=== PATIENT | male | born 1980 | race Caucasian/White ===

== ENCOUNTER 2020-07-16 09:05 | Outpatient (REF) | payer MEDICARE, MEDICAID, SELFPAY ==
[2020-07-16 11:59] LABS: Estimated Average Glucose 183 mg/dL
[2020-07-16 12:04] LABS: Alanine Aminotransferase 26 U/L (0-40); Albumin Level 4.9 g/dL (3.5-5.0); Alkaline Phosphatase 71 U/L (39-117); Anion Gap 14 (12-20); Aspartate Amino Transferase 25 U/L (5-37); Bilirubin Total 0.6 mg/dL (0.0-1.0); Blood Urea Nitrogen 12 mg/dL (9-16); Calcium 9.5 mg/dL (8.4-10.2); Carbon Dioxide 29 mmol/L (22-29); Chloride 99 mmol/L (96-108); Cholesterol 137 mg/dL; Estimated Glomerular Filt Rate > 60; Glucose Fasting 178 mg/dL (60-99); HDL Cholesterol 52 mg/dL; LDL Cholesterol Calculated 71 mg/dl; Sodium 137 mmol/L (135-145); Total Protein 7.7 g/dL (6.5-8.0); Triglycerides 73 mg/dL
[2020-07-16 12:47] LABS: Creatinine Urine 77.38 mg/dL; Microalbum/Creatinine Ratio Ur 33.6 ug/mg cr
== END 2020-07-16 09:06 | disposition home or self-care (01) ==
LOC: HO.HMGCLDS 09:05
PROVIDERS: PCP Internal Medicine; Visit Provider Internal Medicine
DX: E11.9 Type 2 diabetes mellitus without complications (principal); E78.5 Hyperlipidemia, unspecified; Z79.4 Long term (current) use of insulin
CPT/HCPCS: 36415; 80053; 80061; 82043; 83036

== ENCOUNTER → 2020-08-13 08:22 | Outpatient (BNVA) | payer MEDICARE, MEDICAID, SELFPAY | PROVIDERS: PCP Internal Medicine; Referring Provider Internal Medicine; Visit Provider Internal Medicine | DX: E10.65 Type 1 diabetes mellitus with hyperglycemia (principal); E78.5 Hyperlipidemia, unspecified; I10 Essential (primary) hypertension; Z90.410 Acquired total absence of pancreas | CPT/HCPCS: 99212 ==

== ENCOUNTER → 2020-11-14 07:34 | Outpatient (BNVA) | payer MEDICARE, MEDICAID, SELFPAY | PROVIDERS: PCP Internal Medicine; Visit Provider Internal Medicine | DX: E10.65 Type 1 diabetes mellitus with hyperglycemia (principal); E78.5 Hyperlipidemia, unspecified; I10 Essential (primary) hypertension | CPT/HCPCS: 82947; 99212 ==

== ENCOUNTER 2020-11-14 08:21 | Outpatient (REF) | payer MEDICARE, MEDICAID, SELFPAY ==
[2020-11-14 11:01] LABS: Alanine Aminotransferase 21 U/L (0-40); Albumin Level 4.8 g/dL (3.5-5.0); Alkaline Phosphatase 71 U/L (39-117); Anion Gap 14 (12-20); Aspartate Amino Transferase 26 U/L (5-37); Bilirubin Total 0.5 mg/dL (0.0-1.0); Blood Urea Nitrogen 9 mg/dL (9-16); Carbon Dioxide 28 mmol/L (22-29); Chloride 99 mmol/L (96-108); Cholesterol 151 mg/dL; Estimated Glomerular Filt Rate > 60; Glucose Random 194 mg/dL (60-115); HDL Cholesterol 59 mg/dL; LDL Cholesterol Calculated 71 mg/dl; Sodium 136 mmol/L (135-145); Total Protein 7.5 g/dL (6.5-8.0); Triglycerides 108 mg/dL
[2020-11-15 05:17] LABS: LDL Cholesterol Direct 74 mg/dL (<100)
== END 2020-11-14 08:22 | disposition home or self-care (01) ==
LOC: HO.10HDL 08:21
PROVIDERS: Visit Provider Internal Medicine
DX: E10.65 Type 1 diabetes mellitus with hyperglycemia (principal); E10.9 Type 1 diabetes mellitus without complications
CPT/HCPCS: 36415; 80053; 80061; 83721

== ENCOUNTER → 2020-12-19 07:30 | Outpatient (BNVA) | payer MEDICARE, MEDICAID, SELFPAY | PROVIDERS: PCP Internal Medicine; Visit Provider Internal Medicine | DX: E10.65 Type 1 diabetes mellitus with hyperglycemia (principal); E78.5 Hyperlipidemia, unspecified; I10 Essential (primary) hypertension; Z79.4 Long term (current) use of insulin; Z71.3 Dietary counseling and surveillance | CPT/HCPCS: 82947; 99212 ==

== ENCOUNTER → 2021-02-11 07:47 | Outpatient (BNVA) | payer MEDICARE, MEDICAID, SELFPAY | PROVIDERS: PCP Internal Medicine; Visit Provider Internal Medicine | CPT/HCPCS: Q3014 ==

== ENCOUNTER 2021-02-27 10:06 | Outpatient (REF) | payer MEDICARE, MEDICAID, SELFPAY ==
--- NOTE | ~2021-02-27 | CT_ITS ---
EXAMINATION: CT SINUS WITHOUT CONTRAST CLINICAL INFORMATION: Nasal polyp. COMPARISON: None available. TECHNIQUE: A multidetector CT acquisition of the sinuses is obtained without contrast. Multiplanar reformats are acquired and utilized for image interpretation. This CT examination was performed using dose optimization techniques as appropriate, variously including the following: *Automated exposure control *Adjustment of mA and/or kV according to patient size (this includes techniques or standardized protocols for targeted exams where dose is matched to indication/reason for exam; i.e. extremities or head) *Use of iterative reconstruction technique FINDINGS: Complete opacification of the right maxillary sinus which is atelectatic associated with depression of the right orbital floor and lateralization of the right uncinate process which closely opposes the inferomedial right bony orbit, imaging findings suggestive of silent sinus syndrome. The left maxillary sinus, the sphenoid sinuses, the ethmoid air cells, and the frontal sinuses are clear. The internal carotid arteries remain well covered with bone. The mastoid air cells and middle ear cavities are clear. The TMJs are unremarkable. There is no periapical lucency. There is rightward deviation of the nasal septum with a large rightward directed septal spur that extends between the right middle and inferior turbinates. CT/CT sinus wo con IMPRESSION: - Complete opacification of the right maxillary sinus which is atelectatic associated with depression of the right orbital floor and lateralization of the right uncinate process which closely opposes the inferomedial right bony orbit, imaging findings suggestive of silent sinus syndrome. - There is significant rightward deviation of the nasal septum with a large rightward directed septal spur that extends between the right middle and inferior turbinates.
== END 2021-02-27 10:07 | disposition home or self-care (01) ==
LOC: HO.CT 10:06
PROVIDERS: PCP Internal Medicine; Visit Provider Otolaryngology
DX: J33.9 Nasal polyp, unspecified (principal)
CPT/HCPCS: 70486

== ENCOUNTER → 2021-05-08 10:33 | Outpatient (BNVA) | payer MEDICARE, MEDICAID, SELFPAY | PROVIDERS: PCP Internal Medicine; Visit Provider Urology | DX: E11.69 Type 2 diabetes mellitus with other specified complication (principal); N52.1 Erectile dysfunction due to diseases classified elsewhere | CPT/HCPCS: 99212 ==

== ENCOUNTER 2021-05-20 07:34 | Outpatient (REF) | payer MEDICARE, MEDICAID, SELFPAY ==
[2021-05-20 11:11] LABS: Estimated Average Glucose 171 mg/dL; Hemoglobin A1c % 7.6 %
[2021-05-20 11:20] LABS: Alanine Aminotransferase 19 U/L (0-40); Albumin Level 4.7 g/dL (3.5-5.0); Alkaline Phosphatase 73 U/L (39-117); Anion Gap 13 (12-20); Aspartate Amino Transferase 20 U/L (5-37); Bilirubin Total 0.4 mg/dL (0.0-1.0); Blood Urea Nitrogen 8 mg/dL (9-16); Calcium 9.1 mg/dL (8.4-10.2); Carbon Dioxide 29 mmol/L (22-29); Chloride 100 mmol/L (96-108); Cholesterol 142 mg/dL; Estimated Glomerular Filt Rate > 60; Glucose Random 167 mg/dL (60-115); HDL Cholesterol 47 mg/dL; LDL Cholesterol Calculated 81 mg/dl; Potassium 4.5 mmol/L (3.3-5.1); Sodium 137 mmol/L (135-145); Total Protein 7.4 g/dL (6.5-8.0); Triglycerides 73 mg/dL
[2021-05-20 11:36] LABS: Creatinine Urine 39.76 mg/dL; Microalbum/Creatinine Ratio Ur 27.6 ug/mg cr
[2021-05-20 11:40] LABS: Vitamin D 25-OH Total 41.4 ng/mL (>30)
[2021-05-21 18:27] LABS: LDL Cholesterol Direct 80 mg/dL (<100)
== END 2021-05-20 07:35 | disposition home or self-care (01) ==
LOC: HO.10HDL 07:34
PROVIDERS: PCP Internal Medicine; Visit Provider Internal Medicine
DX: E10.65 Type 1 diabetes mellitus with hyperglycemia (principal); E78.5 Hyperlipidemia, unspecified; I10 Essential (primary) hypertension; E55.9 Vitamin D deficiency, unspecified; Z71.3 Dietary counseling and surveillance
CPT/HCPCS: 36415; 80053; 80061; 82043; 82306; 82947; 83036; 83721; 99212

== ENCOUNTER → 2021-11-04 09:00 | Outpatient (BNVA) | payer MEDICARE, MEDICAID, SELFPAY | PROVIDERS: PCP Internal Medicine; Visit Provider Internal Medicine | DX: E10.65 Type 1 diabetes mellitus with hyperglycemia (principal); E78.5 Hyperlipidemia, unspecified; I10 Essential (primary) hypertension | CPT/HCPCS: 82947; 83036; 99212 ==

== ENCOUNTER → 2021-11-21 08:07 | Outpatient (BNVA) | payer MEDICARE, MEDICAID, SELFPAY | PROVIDERS: PCP Internal Medicine; Visit Provider Registered Nurse Diabetes Educator | DX: E10.65 Type 1 diabetes mellitus with hyperglycemia (principal); Z79.4 Long term (current) use of insulin | CPT/HCPCS: 99211 ==

== ENCOUNTER → 2021-12-05 08:06 | Outpatient (BNVA) | payer MEDICARE, MEDICAID, SELFPAY | PROVIDERS: PCP Internal Medicine; Visit Provider Registered Nurse Diabetes Educator | DX: E10.65 Type 1 diabetes mellitus with hyperglycemia (principal); Z79.4 Long term (current) use of insulin | CPT/HCPCS: 99211 ==

== ENCOUNTER → 2022-01-02 08:00 | Outpatient (BNVA) | payer MEDICARE, MEDICAID, SELFPAY | PROVIDERS: PCP Internal Medicine; Visit Provider Registered Nurse Diabetes Educator | DX: E10.65 Type 1 diabetes mellitus with hyperglycemia (principal); Z79.4 Long term (current) use of insulin; Z46.81 Encounter for fitting and adjustment of insulin pump | CPT/HCPCS: 99211 ==

== ENCOUNTER 2022-02-04 08:03 | Outpatient (REF) | payer MEDICARE, MEDICAID, SELFPAY ==
[2022-02-04 12:12] LABS: Estimated Average Glucose 171 mg/dL; Hemoglobin A1c % 7.6 %
[2022-02-04 12:24] LABS: Vitamin D 25-OH Total 32.4 ng/mL (>30)
[2022-02-04 12:27] LABS: Creatinine Urine 56.62 mg/dL
[2022-02-04 12:32] LABS: Alanine Aminotransferase 37 U/L (0-40); Albumin Level 4.7 g/dL (3.5-5.0); Alkaline Phosphatase 58 U/L (39-117); Anion Gap 13 (12-20); Aspartate Amino Transferase 78 U/L (5-37); Bilirubin Total 0.7 mg/dL (0.0-1.0); Blood Urea Nitrogen 9 mg/dL (9-16); Carbon Dioxide 28 mmol/L (22-29); Chloride 93 mmol/L (96-108); Cholesterol 167 mg/dL; Estimated Glomerular Filt Rate > 60; Glucose Random 253 mg/dL (60-115); HDL Cholesterol 73 mg/dL; LDL Cholesterol Calculated 76 mg/dl; Potassium 5.2 mmol/L (3.3-5.1); Sodium 129 mmol/L (135-145); Total Protein 7.5 g/dL (6.5-8.0); Triglycerides 94 mg/dL
[2022-02-06 05:36] LABS: LDL Cholesterol Direct 74 mg/dL (<100)
== END 2022-02-04 08:04 | disposition home or self-care (01) ==
LOC: HO.HMGCLDS 08:03
PROVIDERS: PCP Internal Medicine; Visit Provider Internal Medicine
DX: E10.65 Type 1 diabetes mellitus with hyperglycemia (principal); E55.9 Vitamin D deficiency, unspecified
CPT/HCPCS: 36415; 80053; 80061; 82306; 83036; 83721

== ENCOUNTER → 2022-02-05 08:01 | Outpatient (BNVA) | payer MEDICARE, MEDICAID, SELFPAY | PROVIDERS: PCP Internal Medicine; Visit Provider Internal Medicine | DX: E10.65 Type 1 diabetes mellitus with hyperglycemia (principal); E78.5 Hyperlipidemia, unspecified; I10 Essential (primary) hypertension | CPT/HCPCS: Q3014 ==

== ENCOUNTER 2022-02-05 11:25 | Outpatient (REF) | payer MEDICARE, MEDICAID, SELFPAY ==
[2022-02-05 14:09] LABS: Alanine Aminotransferase 44 U/L (0-40); Albumin Level 4.7 g/dL (3.5-5.0); Alkaline Phosphatase 57 U/L (39-117); Anion Gap 13 (12-20); Aspartate Amino Transferase 69 U/L (5-37); Bilirubin Total 0.6 mg/dL (0.0-1.0); Blood Urea Nitrogen 10 mg/dL (9-16); Calcium 10.3 mg/dL (8.4-10.2); Carbon Dioxide 29 mmol/L (22-29); Chloride 96 mmol/L (96-108); Estimated Glomerular Filt Rate > 60; Glucose Random 218 mg/dL (60-115); Potassium 4.8 mmol/L (3.3-5.1); Sodium 133 mmol/L (135-145); Total Protein 7.5 g/dL (6.5-8.0)
== END 2022-02-05 11:26 | disposition home or self-care (01) ==
LOC: HO.HMGCLDS 11:25
PROVIDERS: Visit Provider Internal Medicine
DX: E10.65 Type 1 diabetes mellitus with hyperglycemia (principal)
CPT/HCPCS: 36415; 80053

== ENCOUNTER 2022-05-06 08:06 | Outpatient (REF) | payer MEDICARE, MEDICAID, SELFPAY ==
[2022-05-06 11:03] LABS: Alanine Aminotransferase 20 U/L (0-40); Albumin Level 5.1 g/dL (3.5-5.0); Alkaline Phosphatase 91 U/L (39-117); Anion Gap 15 (12-20); Aspartate Amino Transferase 23 U/L (5-37); Bilirubin Total 0.6 mg/dL (0.0-1.0); Blood Urea Nitrogen 9 mg/dL (9-16); Calcium 9.9 mg/dL (8.4-10.2); Carbon Dioxide 28 mmol/L (22-29); Chloride 94 mmol/L (96-108); Cholesterol 146 mg/dL; Estimated Glomerular Filt Rate > 60; Glucose Random 179 mg/dL (60-115); HDL Cholesterol 59 mg/dL; LDL Cholesterol Calculated 67 mg/dl; Potassium 5.5 mmol/L (3.3-5.1); Sodium 131 mmol/L (135-145); Total Protein 8.1 g/dL (6.5-8.0); Triglycerides 100 mg/dL
[2022-05-06 11:24] LABS: Vitamin D 25-OH Total 41.4 ng/mL (>30)
[2022-05-06 11:40] LABS: Creatinine Urine 30.99 mg/dL
[2022-05-06 11:47] LABS: Estimated Average Glucose 163 mg/dL; Hemoglobin A1c % 7.3 %
[2022-05-08 00:11] LABS: LDL Cholesterol Direct 70 mg/dL (<100)
== END 2022-05-06 08:07 | disposition home or self-care (01) ==
LOC: HO.10HDL 08:06
PROVIDERS: Visit Provider Internal Medicine
DX: E10.65 Type 1 diabetes mellitus with hyperglycemia (principal); E55.9 Vitamin D deficiency, unspecified
CPT/HCPCS: 36415; 80053; 80061; 82043; 82306; 83036; 83721

== ENCOUNTER 2022-05-07 08:04 | Outpatient (REF) | payer MEDICARE, MEDICAID, SELFPAY ==
[2022-05-07 10:24] LABS: Alanine Aminotransferase 19 U/L (0-40); Alkaline Phosphatase 90 U/L (39-117); Anion Gap 13 (12-20); Aspartate Amino Transferase 20 U/L (5-37); Bilirubin Total 0.5 mg/dL (0.0-1.0); Blood Urea Nitrogen 8 mg/dL (9-16); Calcium 9.4 mg/dL (8.4-10.2); Carbon Dioxide 27 mmol/L (22-29); Chloride 96 mmol/L (96-108); Estimated Glomerular Filt Rate > 60; Glucose Random 217 mg/dL (60-115); Potassium 5.4 mmol/L (3.3-5.1); Sodium 131 mmol/L (135-145); Total Protein 7.7 g/dL (6.5-8.0)
[2022-05-07 10:34] LABS: Cortisol Random 11.9 ug/dL
[2022-05-10 16:26] LABS: Adrenocorticotropic Hormone 8 pg/mL (6-50)
== END 2022-05-07 08:05 | disposition home or self-care (01) ==
LOC: CF 08:04
PROVIDERS: PCP Internal Medicine; Visit Provider Internal Medicine
DX: E10.65 Type 1 diabetes mellitus with hyperglycemia (principal); E78.5 Hyperlipidemia, unspecified; I10 Essential (primary) hypertension
CPT/HCPCS: 36415; 80053; 82024; 82533; 82947; 99212

== ENCOUNTER → 2022-05-08 08:58 | Outpatient (BNVA) | payer MEDICARE, MEDICAID, SELFPAY | PROVIDERS: PCP Internal Medicine; Visit Provider Urology | DX: E11.69 Type 2 diabetes mellitus with other specified complication (principal); N52.1 Erectile dysfunction due to diseases classified elsewhere | CPT/HCPCS: Q3014 ==

== ENCOUNTER 2022-05-14 12:46 | Outpatient (REF) | payer MEDICARE, MEDICAID, SELFPAY ==
[2022-05-14 14:04] LABS: Anion Gap 15 (12-20); Carbon Dioxide 28 mmol/L (22-29); Chloride 99 mmol/L (96-108); Potassium 3.8 mmol/L (3.3-5.1); Sodium 138 mmol/L (135-145)
== END 2022-05-14 12:47 | disposition home or self-care (01) ==
LOC: HO.HMGCLDS 12:46
PROVIDERS: PCP Internal Medicine; Visit Provider Internal Medicine
DX: E87.5 Hyperkalemia (principal)
CPT/HCPCS: 36415; 80051

== ENCOUNTER → 2022-10-27 08:12 | Outpatient (BNVA) | payer MEDICARE, MEDICAID, SELFPAY | PROVIDERS: PCP Internal Medicine; Visit Provider Internal Medicine | DX: E10.65 Type 1 diabetes mellitus with hyperglycemia (principal); I10 Essential (primary) hypertension; E78.5 Hyperlipidemia, unspecified; Z79.4 Long term (current) use of insulin | CPT/HCPCS: 82947; 83036; 99212 ==

== ENCOUNTER 2023-05-04 08:00 | Outpatient (AMB) | payer MEDICARE, MEDICAID, SELFPAY ==
--- NOTE | 2023-05-04 09:01 | A.OFFVIS_ITS ---
Intake Intake Visit Reasons: F/U T1DM Kieselguhr Regenerator Operator Required: No Accompanied by: Self / Same As Patient Allergies barley [Barley] Allergy (Severe, Verified 10/27/22 08:28) THROAT SWELLING fish oil [Fish Oil] Allergy (Mild, Verified 10/27/22 08:28) ITCHING fentanyl Allergy (Unknown, Verified 10/27/22 08:28) disorientation gabapentin Adverse Reaction (Unknown, Verified 10/27/22 08:) mood changes made him angry HPI Comprehensive Diabetes Asmnt Most Recent Diabetes Results: Microalb/Creat Ratio 58.0 ug/mg cr 05/06/22 Cholesterol 146 mg/dL 05/06/22 HDL Cholesterol 59 mg/dL 05/06/22 Triglycerides 100 mg/dL 05/06/22 Creatinine 0.91 mg/dL (0.5-1.4) 05/07/22 Blood Urea Nitrogen 8 mg/dL (9-16) L 05/07/22 Sodium 138 mmol/L (135-145) 05/14/22 Potassium 3.8 mmol/L (3.3-5.1) 05/14/22 Chloride 99 mmol/L (96-108) 05/14/22 Carbon Dioxide 28 mmol/L (22-29) 05/14/22 Calcium 9.4 mg/dL (8.4-10.2) 05/07/22 AST 20 U/L (5-37) 05/07/22 ALT 19 U/L (0-40) 05/07/22 Total Protein 7.7 g/dL (6.5-8.0) 05/07/22 Albumin 5.0 g/dL (3.5-5.0) 05/07/22 [facility] Medical History GERD (gastroesophageal reflux disease) HLD (hyperlipidemia) HTN (hypertension) Lipid disorder Necrotizing pancreatitis Pancreatitis T1DM (type 1 diabetes mellitus) Vitamin D deficiency Surgical History H/O Spinal surgery H/O vasectomy History of elbow surgery (09/2014) History of pancreatectomy History of surgery on left wrist Hx of umbilical hernia repair Family History Father Diabetes HTN (hypertension) Hyperlipemia Alcohol abuse Substance use disorder Mother Anxiety Depression Diabetes Mental health disorder Brother Kidney failure Mental health disorder Maternal Grandmother Stomach cancer Social History Household Members: Spouse and Children Housing: House Alcohol intake: never Patient Tobacco Use Status: Never used Tobacco e-Cigarette/Vaping Use: Never Used service: No Current occupational status: disabled Cognitive needs: No Hearing needs: No Vision needs: Yes Assessment & Plan Assessment & Plan (1) Erectile dysfunction associated with type 2 diabetes mellitus: Code(s): E11.69 - Type 2 diabetes mellitus with other specified complication; N52.1 - Erectile dysfunction due to diseases classified elsewhere Plan: Personal Continuous Glucose Monitor: Patient's last visit December 2021, at that visit we discussed insulin pump therapy. Patient did not follow-up until today's visit Patient reports in March 2023 his insurance no longer covered Humalog so he is now taking NovoLog. Patient reports he feels his control is much better when using Humalog. Stating that Humalog seems to control glucose faster than NovoLog Patient also requested prescription for glucagon, and new glucose meter. He has been using old OneTouch meter with strips Patients CGM information reviewed Reviewed patient's sensor data: Hypoglycemia: ? 0% Hyperglycemia:? 63% Time in Range:? 37% Average glucose for the last 2 weeks? 209 mg/dL Pump patient stated he still interested in insulin pump therapy, will discuss Omnipod [address] Duarte at next visit on 05/18/[address] Duarte regarding language that should be included in next visit appointment for PA for Humalog Patient reports that he adjusts his Lantus dose based on his physical activity for the next day. Discussed with patient action of Lantus, he is experiencing overnight hyperglycemia. Patient seems to think that this is related to the change in mealtime insulin, reports that he wants to try going back to Humalog before making any adjustment to Lantus Reviewed how to interpret trend arrows Reminded patient that to check finger sticks if symptoms do not match sensor reading. Discussed lag time between finger stick and sensor data.? Patient able to insert sensor independently at home without issue.? Patient Instructions: Patient will follow-up critical care educator in 1 month Coding Level of Care Code Est Pt Level 1 (09488) Diagnoses Erectile dysfunction associated with type 2 diabetes mellitus E11.69; N52.1
== END 2023-05-04 09:05 | disposition home or self-care (01) ==
PROVIDERS: PCP Internal Medicine; Referring Provider Internal Medicine; Visit Provider Registered Nurse Diabetes Educator
DX: E11.69 Type 2 diabetes mellitus with other specified complication (principal); N52.1 Erectile dysfunction due to diseases classified elsewhere

== ENCOUNTER → 2023-05-04 08:00 | Outpatient (BNVA) | payer MEDICARE, MEDICAID, SELFPAY | PROVIDERS: Visit Provider Registered Nurse Diabetes Educator | DX: E11.69 Type 2 diabetes mellitus with other specified complication (principal); N52.1 Erectile dysfunction due to diseases classified elsewhere | CPT/HCPCS: 99211 ==

== ENCOUNTER 2023-05-08 08:37 | Outpatient (AMB) | payer MEDICARE, MEDICAID, SELFPAY ==
--- NOTE | 2023-05-08 08:42 | MHC.OFFVIS ---
Intake Intake Visit Reasons: 1 year follow up erectile dysfunction Intake Note: Pt presents to the office today for a 1 year follow up for erectile dysfunction. Allergies barley [Barley] Allergy (Severe, Verified 05/08/23 08:43) THROAT SWELLING fish oil [Fish Oil] Allergy (Mild, Verified 05/08/23 08:43) ITCHING fentanyl Allergy (Unknown, Verified 05/08/23 08:43) disorientation gabapentin Adverse Reaction (Unknown, Verified 05/08/23 08:43) mood changes made him angry Medication List - Last Reconciled 05/08/23 by Kiet Soriano MD blood sugar diagnostic As directed blood sugar diagnostic (Higher Oneuch Verio test strips) 2x daily blood-glucose meter (Higher Oneuch Verio Flex Meter) As directed blood-glucose sensor (DexAmbient Devices G6 Sensor device) As directed blood-glucose transmitter (Dexcom G6 Transmitter device) As directed carisoprodol 350 mg PO dextroamphetamine-amphetamine 20 mg ER 1 cap PO DAILY gemfibrozil 600 mg PO BID 90 days glucagon (Glucagon Emergency Kit) 1 mg subcut Q20M PRN insulin glargine 32 units subcut DAILY lancets As directed lancets ([employer] Delica Plus Lancet) 2x daily lidocaine 5% 1 patch topical DAILY uckrwm-yicgjtji-screwgl 24,000-76,000 -120,000 unit (Creon) 1 cap PO QID multivitamin 1 tab PO DAILY Novolog FlexPen U-100 Insulin (insulin aspart U-100) Up to 30 units via sliding scale daily subcut 3 times a day subcutaneously daily; 30 days NS omeprazole 20 mg PO DAILY oxycodone [id number] mg PO Q4-6H PRN oxycodone ER 20 mg PO BID pen needle,diabetic dual safty (BD AutoShield Duo Pen Needle) 1 ea miscellaneous .six times daily 30 days pravastatin 10 mg PO .every other day 30 days sildenafil 100 mg (2 x 50 mg) PO DAILY PRN 30 days tadalafil 10 mg PO DAILY 90 days HPI HPI Comments History of Present Illness Details Mr Wick is a very pleasant male. He is a patient of Dr Tillman. He is seen for the following urologic conditions. - erectile dysfunction secondary to diabetes Stable with tadalafil Prescription provided Has had issues with sugar control since since insurance company changed insulin formulation Genitourinary symptoms:? 3/18 Presents with questions regarding scarring to his penis. Had been admitted to ICU and was in a coma for 6 weeks. At that time had blistering on his penis which has led to some degree of scarring. On examination this appears to have been superficial but involved the pigmented LAD. Is minimal scarring. There is evidence of the blistering that is now well-healed running down the left lateral side of the penis. The meatus is normal. He does also suffer from inguinal disruption particularly on the right side with pain at the insertion between his rectus and his symphysis pubis. This will resolve slowly over 3 months as his strength is builds back up again. This was all result of pancreatitis secondary to gallstones and familial triglyceridemia ?12/28 Fully healed skin on penis - describes areas of decreased sensitivity, glans sensitivity normal. Unlikely to recover superfiical skin sensitivity. ?Has right sided inguinal disruption with pain on palpation of the rectus insertion ?Intermittent trouble with erections - has been using L-Arginine for low nitrogren- offered sildenafil and rx provided ?01/29 switched to daily tadalafil. Has memory issues so planning with sildenafil has been a challenge. Had been using L arginine for low nitrogen. Discussed his diabetic control ?04/30 good effect with daily tadalafil. Will continue to follow [facility] Medical History GERD (gastroesophageal reflux disease) HLD (hyperlipidemia) HTN (hypertension) Lipid disorder Necrotizing pancreatitis Pancreatitis T1DM (type 1 diabetes mellitus) Vitamin D deficiency Surgical History H/O Spinal surgery H/O vasectomy History of elbow surgery (09/2014) History of pancreatectomy History of surgery on left wrist Hx of umbilical hernia repair Family History Father Diabetes HTN (hypertension) Hyperlipemia Alcohol abuse Substance use disorder Mother Anxiety Depression Diabetes Mental health disorder Brother Kidney failure Mental health disorder Maternal Grandmother Stomach cancer Social History Household Members: Spouse and Children Housing: House Alcohol intake: never Patient Tobacco Use Status: Never used Tobacco e-Cigarette/Vaping Use: Never Used service: No Current occupational status: disabled Cognitive needs: No Hearing needs: No Vision needs: Yes Review of Systems Const Denies chills and Denies fever(s) Card Reports no additional complaints and Denies syncope Resp Denies cough GI Denies abdominal pain and Denies heartburn Reports as per HPI and Denies change in libido Neuro Denies syncope Psych Denies change in libido Endo Denies change in libido Physical Exam Const General: cooperative, healthy appearing, comfortable and no acute distress Orientation/consciousness: patient oriented x3 HEENT Face and sinus: Yes normal facial exam Mouth: moist mucous membranes Neck Neck: Yes normal visual inspection, Yes full ROM and Yes trachea midline Chest Chest palpation & inspection: normal inspection of the chest Resp Effort & Inspection: normal respiratory effort, able to speak in complete sentences and no respiratory distress GI Inspection: Yes normal to inspection Back/Spine/Pelvis Cervical Spine: normal cervical lordosis Thoracic/Lumbar Spine: thoracic and lumbar spine normal to inspection Skin General skin exam: no rashes or lesions noted Neuro General: patient oriented x3, gait normal, tone normal and moves all extremities Extrem General: Yes normal to inspection and Yes capillary refill normal Assessment & Plan Assessment & Plan (1) Erectile dysfunction associated with type 2 diabetes mellitus: Code(s): E11.69 - Type 2 diabetes mellitus with other specified complication; N52.1 - Erectile dysfunction due to diseases classified elsewhere Plan Twelve month follow-up Medications: Changed From sildenafil administer 60 minutes before intended activity 100 mg (2 x 50 mg) PO DAILY 30 days PRN 30 tabs 1RF sexual activity E11.69 - Type 2 diabetes mellitus with other specified complication, N52.1 - Erectile dysfunction due to diseases classified elsewhere To sildenafil administer 60 minutes before intended activity 100 mg PO DAILY 30 days PRN 30 tabs 1RF sexual activity E11.69 - Type 2 diabetes mellitus with other specified complication, N52.1 - Erectile dysfunction due to diseases classified elsewhere Refilled tadalafil 10 mg PO DAILY 90 days 90 tabs 3RF E11.69 - Type 2 diabetes mellitus with other specified complication, N52.1 - Erectile dysfunction due to diseases classified elsewhere Patient Instructions: Imaging studies, laboratory and physical exam results were discussed and reviewed in detail. No major barriers to patient understanding were identified. An opportunity to ask questions regarding the treatment plan was provided. All questions were answered. The patient expressed understanding and agreement with the above treatment plan. The patient is aware they should contact our office by phone for worsening of their current condition or the appearance of new urologic symptoms. Compliance is encouraged with any medications and followup testing that is ordered. It is a privilege to participate in the urologic care of your patient. If you have any questions or concerns regarding treatment for the above conditions, or other urologic issues, please do not hesitate to contact me. The office telephone contact is [phone]. This note is constructed using voice recognition software. While every effort has been made to ensure accuracy storage wharfage clerk errors may have been included. Yours sincerely, Dr Kiet Soriano MD, [facility] - Urology Providers of Expert, Compassionate Care for the Genitourinary System Coding Level of Care Code Est Pt Level 4 (85220) Diagnoses Erectile dysfunction associated with type 2 diabetes mellitus E11.69; N52.1
== END 2023-05-08 08:59 | disposition home or self-care (01) ==
PROVIDERS: Visit Provider Urology
DX: E11.69 Type 2 diabetes mellitus with other specified complication (principal); N52.1 Erectile dysfunction due to diseases classified elsewhere
CPT/HCPCS: 99214

== ENCOUNTER → 2023-05-08 08:37 | Outpatient (BNVA) | payer MEDICARE, MEDICAID, SELFPAY | PROVIDERS: Visit Provider Urology | DX: E10.69 Type 1 diabetes mellitus with other specified complication (principal); N52.1 Erectile dysfunction due to diseases classified elsewhere; Z79.4 Long term (current) use of insulin | CPT/HCPCS: 99212 ==

== ENCOUNTER 2023-05-14 07:39 | Outpatient (REF) | payer MEDICARE, MEDICAID, SELFPAY ==
--- NOTE | ~2023-05-14 | XR_ITS ---
EXAMINATION: XR FINGER, RIGHT CLINICAL INFORMATION: Laceration without foreign body of finger. COMPARISON: None available. TECHNIQUE: 3 views of the right hand with attention to the middle finger. FINDINGS: The bones and soft tissues are normal. No fracture. Alignment is anatomic. Joint spaces are maintained. No radiopaque foreign body. XR/XR finger RT min 2V IMPRESSION: Normal finger radiographs.
[2023-05-14 11:57] LABS: Estimated Average Glucose 160 mg/dL; Hemoglobin A1c % 7.2 %
[2023-05-14 12:04] LABS: Alanine Aminotransferase 30 U/L (0-40); Albumin Level 4.6 g/dL (3.5-5.0); Alkaline Phosphatase 103 U/L (39-117); Anion Gap 16 (12-20); Aspartate Amino Transferase 31 U/L (5-37); Bilirubin Total 0.6 mg/dL (0.0-1.0); Blood Urea Nitrogen 12 mg/dL (9-16); Calcium 9.9 mg/dL (8.4-10.2); Carbon Dioxide 27 mmol/L (22-29); Chloride 101 mmol/L (96-108); Cholesterol 138 mg/dL; Estimated Glomerular Filt Rate > 60; Glucose Random 192 mg/dL (60-115); HDL Cholesterol 60 mg/dL; LDL Cholesterol Calculated 53 mg/dl; Potassium 4.7 mmol/L (3.3-5.1); Sodium 139 mmol/L (135-145); Total Protein 7.6 g/dL (6.5-8.0); Triglycerides 125 mg/dL
[2023-05-14 12:52] LABS: Creatinine Urine 56.46 mg/dL
[2023-05-15 20:14] LABS: LDL Cholesterol Direct 52 mg/dL (<100)
== END 2023-05-14 07:40 | disposition home or self-care (01) ==
LOC: HO.HMGCLDS 07:39
PROVIDERS: Absent Provider Physician Assistant Medical; PCP Internal Medicine; Visit Provider Internal Medicine
DX: S61.219A Laceration without foreign body of unspecified finger without damage to nail, initial encounter (principal); E10.65 Type 1 diabetes mellitus with hyperglycemia
CPT/HCPCS: 36415; 73140; 80053; 80061; 82043; 83036; 83721

== ENCOUNTER 2023-05-18 08:59 | Outpatient (AMB) | payer MEDICARE, MEDICAID, SELFPAY ==
--- NOTE | 2023-05-18 08:59 | A.OFFVIS_ITS ---
Intake Intake Visit Reasons: F/U T1DM Intake Note: T1DM follow up visit. [employer] Er[employer] Developer Required: No Allergies barley [Barley] Allergy (Severe, Verified 05/18/23 09:34) THROAT SWELLING fish oil [Fish Oil] Allergy (Mild, Verified 05/18/23 09:34) ITCHING fentanyl Allergy (Unknown, Verified 05/18/23 09:34) disorientation gabapentin Adverse Reaction (Unknown, Verified 05/18/23 09:34) mood changes made him angry Medication List - Last Reconciled 05/18/23 by Magdalena Pedersen DO blood sugar diagnostic As directed blood sugar diagnostic (OneTouch Verio test strips) 2x daily blood-glucose meter (Salad LabsTouch Verio Flex Meter) As directed blood-glucose sensor (Dexcom G6 Sensor device) As directed blood-glucose transmitter (Dexcom G6 Transmitter device) As directed carisoprodol 350 mg PO dextroamphetamine-amphetamine 20 mg ER 1 cap PO DAILY gemfibrozil 600 mg PO BID 90 days glucagon (Glucagon Emergency Kit) 1 mg subcut Q20M PRN insulin glargine 25 - 35 units subcut DAILY lancets As directed lancets (Salad LabsTouch Delica Plus Lancet) 2x daily lidocaine 5% 1 patch topical DAILY bqslaj-jqeaetnc-kswfjit 24,000-76,000 -120,000 unit (Creon) 1 cap PO QID multivitamin 1 tab PO DAILY Novolog FlexPen U-100 Insulin (insulin aspart U-100) Up to 30 units via sliding scale daily subcut 3 times a day subcutaneously daily; 30 days NS omeprazole 20 mg PO DAILY oxycodone [id number] mg PO Q4-6H PRN oxycodone ER 20 mg PO BID pen needle,diabetic dual safty (BD AutoShield Duo Pen Needle) 1 ea miscellaneous .six times daily 30 days pravastatin 10 mg PO .every other day 30 days sildenafil 100 mg PO DAILY PRN 30 days tadalafil 10 mg PO DAILY 90 days HPI HPI Comments History of Present Illness Details 42 YO M with 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 He was diagnosed with hypertriglyceridemia in his youth and did have episodes of pancreatitis. Had another episode of pancreatitis with ARDS and prolonged ICU course in 2016. 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 He is currently managed as a T1DM. 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 Was unable to accurately count carbs and thus has been using just a Novolog sliding scale with meals. He was formerly followed by Dr. Ward at [facility]. Current regimen Lantus 32 units QHS. Humalog sliding scale is: 150-199: 6 U 200-249: 8 U 250 - 299:10 U 300 - 349: 12 U Sugars are elevated in the evenings and around meal times. Has hypoglycemia awareness. Treats according to the rule of 15's. Has not had any lows in the past 2 weeks. Most recent A1C: 7.2% 05/14/2023, unchanged from 7.3% 10/27/2022, unchanged from 7.3% 05/06/2022. Has eyes checked yearly, last eye exam 10/17/2021, no retinopathy. Has neuropathy, does not see podiatry. No nephropathy. UAC 69 05/14/2023. Is on Lisinopril 2.5 mg PO daily. No history of HLD, LDL 52 05/14/2023, uses Pravastatin 10 mg PO every other day. Is on Gemfibrozil. No history of CAD. Has had Diabetes Education. Diet/Carb counting: Has issues with carb counting as he had some brain damage after his ICU stay and has difficulty with math, but has been working on this. Denies ever having DKA. Never had severe hypoglycemia. Currently eats 6 times a day. Eats first thing in the morning 5-9 am, 12 pm, 2 pm, 4 pm, 6-8 pm, 10 pm. Labs: Laboratory Tests 05/14/23 05/14/23 05/14/23 07:42 07:42 07:42 Hemoglobin A1c % 7.2 LDL Cholesterol Di rect 52 Microalb/Creat Rat io 69.0 PFSH Medical History GERD (gastroesophageal reflux disease) HLD (hyperlipidemia) HTN (hypertension) Lipid disorder Necrotizing pancreatitis Pancreatitis T1DM (type 1 diabetes mellitus) Vitamin D deficiency Surgical History H/O Spinal surgery H/O vasectomy History of elbow surgery (09/2014) History of pancreatectomy History of surgery on left wrist Hx of umbilical hernia repair Family History Father Diabetes HTN (hypertension) Hyperlipemia Alcohol abuse Substance use disorder Mother Anxiety Depression Diabetes Mental health disorder Brother Kidney failure Mental health disorder Maternal Grandmother Stomach cancer Social History Household Members: Spouse and Children Housing: House Alcohol intake: never Patient Tobacco Use Status: Never used Tobacco e-Cigarette/Vaping Use: Never Used service: No Current occupational status: disabled Cognitive needs: No Hearing needs: No Vision needs: Yes Assessment & Plan Assessment & Plan (1) T1DM (type 1 diabetes mellitus): Code(s): E10.9 - Type 1 diabetes mellitus without complications Qualifiers: Diabetes mellitus complication status: with hyperglycemia Qualified Code(s): E10.65 - Type 1 diabetes mellitus with hyperglycemia Plan: Patient with T1DM which is the result of a pancreatectomy. Sugars have greatly improved, but he remains with hyperglycemia around mealtimes. He is working on developing ratios with [facility] as well as working towards the tandem pump. I think this will benefit him greatly. His sugars remain high overnight. He reports he noted this change with Novolog. He does much better with Humalog. Will complete PA for Humalog at this time. He will continue to follow with [facility] and will F/U with me in 3 months time. All of his quesions were answered. He is in agreement with this plan of care. The importance of adherence to prescribed regimen was discussed with the patient including checking finger sticks 3-4 times per day, using insulin as prescribed, monitoring for hypoglycemia and treating any episode of hypoglycemia according to the rule of 15''s. Proper foot care was also discussed with the patient, and the importance of yearly dilated eye exam. The patient was asked to have copy of eye exam sent to our office for review. I spent 20 minutes in reviewing the record, seeing the patient and documenting in the medical record, including 5 minutes on the phone with the Patient. (2) HLD (hyperlipidemia): Code(s): E78.5 - Hyperlipidemia, unspecified Qualifiers: Hyperlipidemia type: unspecified Qualified Code(s): E78.5 - Hyperlipidemia, unspecified Plan: He is currently using Pravastatin 10 mg PO every other day. He also uses Gemfibrozil daily. LDL at goal. No changes. (3) HTN (hypertension): Code(s): I10 - Essential (primary) hypertension Qualifiers: Hypertension type: unspecified Qualified Code(s): I10 - Essential (primary) hypertension Plan: UAC at goal. Will continue with Lisinopril 2.5 mg PO daily. Telehealth Telehealth Location of provider rendering services: practice address Location of patient: address on file Patient Identification confirmed using: Name, : Yes Telehealth method: voice only Patient verbally consented to treatment: Yes Patient verbally consented to billing insurance company: Yes Patient informed of any privacy concerns related to visit: Yes Coding Level of Care Code Tele Est Pt Level 3 (74141) Diagnoses T1DM (type 1 diabetes mellitus) E10.65 Diabetes mellitus complication status: with hyperglycemia HLD (hyperlipidemia) E78.5 Hyperlipidemia type: unspecified HTN (hypertension) I10 Hypertension type: unspecified
== END 2023-05-18 12:16 | disposition home or self-care (01) ==
LOC: HO.ENCR 08:59
PROVIDERS: PCP Internal Medicine; Visit Provider Internal Medicine
DX: E10.65 Type 1 diabetes mellitus with hyperglycemia (principal); E78.5 Hyperlipidemia, unspecified; I10 Essential (primary) hypertension
CPT/HCPCS: 99443

== ENCOUNTER → 2023-05-18 08:59 | Outpatient (BNVA) | payer MEDICARE, MEDICAID, SELFPAY | PROVIDERS: PCP Internal Medicine; Visit Provider Internal Medicine ==

== ENCOUNTER 2023-05-21 08:26 | Outpatient (AMB) | payer MEDICARE, MEDICAID, SELFPAY ==
[2023-05-21 08:46] VITALS: BP 130/94; PULSE 103; TEMP 36.7; O2SAT 98; BMI 26.8
--- NOTE | 2023-05-21 08:46 | MHC.OFFWIV ---
Intake Vital Signs 05/21/23 08:46 Height 5 ft 5 in Weight 161 lb BMI 26.8 BP 130/94 H Blood Pressure Location Rt brachial Position Sitting Pulse 103 H Pulse Source Pulse Oximeter Temp 98.1 F Temp Source Oral Pulse Oximetry (%) 98 Oxygen Delivery Method Room Air Intake Visit Reasons: EP, Stitch removal right middle finger Intake Note: Pt is here today for stitch removal on middle finger on Rt hand. Patient Tobacco Use Status: Never used Tobacco Allergies barley [Barley] Allergy (Severe, Verified 05/21/23 08:47) THROAT SWELLING fish oil [Fish Oil] Allergy (Mild, Verified 05/21/23 08:47) ITCHING fentanyl Allergy (Unknown, Verified 05/21/23 08:47) disorientation gabapentin Adverse Reaction (Unknown, Verified 05/21/23 08:47) mood changes made him angry Do you need a note to return to daycare/school/sports/work: No HPI HPI Comments History of Present Illness Details The patient presents to urgent care for suture removal. Stitches placed 1 week ago healing well no complaints PFSH Medical History GERD (gastroesophageal reflux disease) HLD (hyperlipidemia) HTN (hypertension) Lipid disorder Necrotizing pancreatitis Pancreatitis T1DM (type 1 diabetes mellitus) Vitamin D deficiency Surgical History H/O Spinal surgery H/O vasectomy History of elbow surgery (09/2014) History of pancreatectomy History of surgery on left wrist Hx of umbilical hernia repair Family History Father Diabetes HTN (hypertension) Hyperlipemia Alcohol abuse Substance use disorder Mother Anxiety Depression Diabetes Mental health disorder Brother Kidney failure Mental health disorder Maternal Grandmother Stomach cancer Social History Household Members: Spouse and Children Housing: House Alcohol intake: never Patient Tobacco Use Status: Never used Tobacco e-Cigarette/Vaping Use: Never Used service: No Current occupational status: disabled Cognitive needs: No Hearing needs: No Vision needs: Yes Review of Systems Eyes Reports no additional complaints ENT Reports Normal hearing present and Denies dysphagia Card Denies dyspnea and Denies slow heart rate Resp Denies cough and Denies dyspnea GI Denies dysphagia and Denies heartburn Denies dysuria Musc Denies tingling Skin/Breast Reports lesions, Denies skin ulcer and Denies unusual bruising Neuro Reports Normal hearing present, Denies Sensory deficit (Neuro), Denies tingling and Denies paresthesias Physical Exam Vital Signs: Last Vital Signs Temp 98.1 F 05/21/23 08:46 Pulse 103 H 05/21/23 08:46 BP 130/94 H 05/21/23 08:46 Pulse Ox 98 05/21/23 08:46 Oxygen Delivery Method Room Air 05/21/23 08:46 BMI result Body Mass Index 26.8 Const General: healthy appearing and no acute distress Resp Effort & Inspection: normal respiratory effort and able to speak in complete sentences Skin Other: Right hand 3rd digit distal tip: Laceration healing well [address] Neuro Cranial nerves: Yes Normal hearing present Sensory Exam: No Sensory deficit (Neuro) Assessment & Plan Assessment & Plan (1) Visit for suture removal: Code(s): Z48.02 - Encounter for removal of sutures Plan Suture removal: The patient's laceration is healing well.no wound dehiscence, no wound drainage, no erythema. It was cleaned with Betadine. All sutures were removed easily by me using an scissors Patient tolerated this procedure well. Patient will follow-up with PCP Coding Level of Care Code Est Pt Level 3 (99082) Diagnoses Visit for suture removal Z48.02
== END 2023-05-21 09:21 | disposition home or self-care (01) ==
PROVIDERS: PCP Internal Medicine; Visit Provider Emergency Medicine
DX: Z48.02 Encounter for removal of sutures (principal)
CPT/HCPCS: 99213

== ENCOUNTER 2023-06-19 09:54 | Outpatient (AMB) | payer MEDICARE, MEDICAID, SELFPAY ==
[2023-06-19 09:58] VITALS: BP 140/82; PULSE 91; O2SAT 99; BMI 26.7
--- NOTE | 2023-06-19 09:58 | A.OFFPC_ITS ---
Vital Signs 06/19/23 09:58 Height 5 ft 5 in Weight 160 lb 9 oz BMI 26.7 BP 140/82 H Blood Pressure Location Lt brachial Position Sitting Pulse 91 Pulse Source Pulse Oximeter Pulse Oximetry (%) 99 Oxygen Delivery Method Room Air Intake Visit Reasons: Annual PE Allergies barley [Barley] Allergy (Severe, Verified 06/19/23 09:58) THROAT SWELLING fish oil [Fish Oil] Allergy (Mild, Verified 06/19/23 09:58) ITCHING fentanyl Allergy (Unknown, Verified 06/19/23 09:58) disorientation gabapentin Adverse Reaction (Unknown, Verified 06/19/23 09:58) mood changes made him angry Medication List - Last Reconciled 06/19/23 by Keshawn Tillman MD blood sugar diagnostic As directed blood sugar diagnostic (Identification Solutionsuch Verio test strips) 2x daily blood-glucose meter ([employer]uch Verio Flex Meter) As directed blood-glucose sensor (Dexcom G6 Sensor device) As directed blood-glucose transmitter (Dexcom G6 Transmitter device) As directed carisoprodol 350 mg PO dextroamphetamine-amphetamine 20 mg ER 1 cap PO DAILY gemfibrozil 600 mg PO BID 90 days glucagon (Glucagon Emergency Kit) 1 mg subcut Q20M PRN insulin glargine 25 - 35 units subcut DAILY insulin lispro (Humalog KwikPen (U-100) Insulin) Up to 30 units daily via sliding scale given 3times per day subcutaneously use as directed; 30 days lancets As directed lancets (GlobeInTouch Delica Plus Lancet) 2x daily lidocaine 5% 1 patch topical DAILY igkvyb-ljaltent-gpoolky 24,000-76,000 -120,000 unit (Creon) 1 cap PO QID multivitamin 1 tab PO DAILY omeprazole 20 mg PO DAILY oxycodone ER 20 mg PO BID pen needle,diabetic dual safty (BD AutoShield Duo Pen Needle) 1 ea miscellaneous .six times daily 30 days pravastatin 10 mg PO .every other day 30 days sildenafil 100 mg PO DAILY PRN 30 days tadalafil 10 mg PO DAILY 90 days Tobacco use date assessed: 06/19/23 Dental Screening Dental Screen Date: 06/19/23 Did you have a dental visit in the last 12 months?: Yes Did you have a dental problem in the last 6 months where you did not have access to dental care?: No Was dental information given to patient?: Patient has dentist HPI Annual PE HPI Details Patient is a 43-year-old gentleman came in today for physical examination Labs done May this year his hemoglobin A1c was 7.2% Other providers patient is seeing are Endocrinology Count includes the [facility] for the management of diabetes and high cholesterol [facility] for urological problems. [facility] gastroenterology for chronic pancreatitis management He has also seen [facility] Neurology when he was having difficulty with his memory Currently patient is stable and managing his health conditions well No medication from PCP office Labs are through endocrinology [facility] Medical History Necrotizing pancreatitis Lipid disorder Pancreatitis GERD (gastroesophageal reflux disease) Vitamin D deficiency HLD (hyperlipidemia) HTN (hypertension) T1DM (type 1 diabetes mellitus) Surgical History History of pancreatectomy History of surgery on left wrist Hx of umbilical hernia repair H/O Spinal surgery History of elbow surgery (09/2014) H/O vasectomy Family History Father Diabetes HTN (hypertension) Hyperlipemia Alcohol abuse Substance use disorder Mother Anxiety Depression Diabetes Mental health disorder Brother Kidney failure Mental health disorder Maternal Grandmother Stomach cancer Social History Household Members: Spouse and Children Housing: House Alcohol intake: never Patient Tobacco Use Status: Never used Tobacco e-Cigarette/Vaping Use: Never Used service: No Current occupational status: disabled Cognitive needs: No Hearing needs: No Vision needs: Yes Questionnaire PHQ-9 Over the last 2 weeks, how often have you been bothered by any of the following problems? 1. Little interest or pleasure in doing things: not at all 2. Feeling down, depressed, or hopeless: not at all 3. Trouble falling or staying asleep, or sleeping too much: not at all 4. Feeling tired or having little energy: several days 5. Poor appetite or overeating: not at all 6. Feeling bad about yourself - or that you are a failure or have let yourself or your family down: not at all 7. Trouble concentrating on things, such as reading the newspaper or watching television: several days 8. Moving or speaking so slowly that other people could have noticed. Or the opposite - being so fidgety or restless that you have been moving around a lot more than usual: not at all 9. Thoughts that you would be better off or of hurting yourself in some way: not at all Total score: 2 Depression Screening Interpretation: Negative 40917 - PHQ-9 Billing: Yes Source: Developed by Drs. Bj Mercado, Katt Burroughs, Franklin Gagnon and colleagues, with an educational kelly from [employer]. Thrive Questionnaire Date Thrive assessed: 06/19/23 I am a: Patient What is your living situation today?: I have a steady place to live Within the past 12 months, did the food you bought not last and you didn't have the money to get more?: Never true Within the past 12 months, did you worry whether your food would run out before you got money to buy more?: Never true Do you have trouble paying for medicines?: No Do you have trouble getting transportation to medical appointments?: No Do you have trouble paying your heating and electricity bill?: No Do you have trouble taking care of your child, family member or friend?: No Do you have trouble with day-to-day activities such as bathing, preparing meals, shopping, managing finances, etc.?: No Are you currently unemployed and looking for a job?: No Are you interested in more education?: No Currently or been in a relationship where the following occur: no concerns reported AUDIT C Alcohol Use Questionnaire (AUDIT-C) 1. How often do you have a drink containing alcohol?: Never 3. How often do you have six or more drinks on one occasion?: Never Total Score: 0 Score Reviewed/Action Taken: Yes JENNIFER-7 AMB Questionnaire JENNIFER-7 Date JENNIFER - 7 assessed: 06/19/23 Feeling nervous, anxious, or on edge: 0 = Not at all Not being able to stop or control worryin = Not at all Worrying too much about different things: 1 = Several days Trouble relaxin = Not at all Being so restless that it is hard to sit still: 0 = Not at all Becoming easily annoyed or irritable: 1 = Several days Feeling afraid as if something awful might happen: 0 = Not at all Total JENNIFER-7 score (0-4 normal; 5-9 mild; 10-14 moderate; 15-21 severe): 2 Source: Developed by Drs. Bj Mercado, Katt Burroughs, Franklin Gagnon and colleagues, with an educational kelly from [employer]. JENNIFER-7 Assessment Billing JENNIFER-7 Assessment Tool: JENNIFER-7 Assessment 60883 Review of Systems Const Denies chills, Denies fever(s) and Denies headache(s) Eyes Denies blurry vision ENT Denies headache(s), Denies nasal discharge, Denies nasal obstruction, Denies odynophagia and Denies sinus pain Card Denies chest pain at rest and Denies chest pain with activity Resp Denies cough and Denies hemoptysis GI Denies diarrhea, Denies odynophagia, Denies vomiting and Denies hematemesis Reports as per HPI Musc Denies abnormal gait Skin/Breast Reports as per HPI Neuro Denies Neuro-related abnormal movements, Denies Abnormal speech present, Denies abnormal gait, Denies headache(s) and Denies Sensory deficit (Neuro) Psych Denies mood swings and Denies paranoia Endo Reports as per HPI Madhav/Lymph Reports as per HPI Aller/Immun Reports as per HPI Physical exam (Primary Care) Vital Signs: Last Vital Signs Pulse 91 06/19/23 09:58 BP 140/82 H 06/19/23 09:58 Pulse Ox 99 06/19/23 09:58 Oxygen Delivery Method Room Air 06/19/23 09:58 BMI result Body Mass Index 26.7 Tobacco/Smoking Status: Tobacco use Status Tobacco use date assessed 06/19/23 06/19/23 10:01 Patient Tobacco Use Status Never used Tobacco 06/19/23 10:01 e-Cigarette/Vaping Use Never Used 06/19/23 10:01 Depression Screening Interpretation: Negative Thrive Assessment: Date of Thrive Assessment Date Thrive assessed 06/11/22 06/19/23 10:01 Currently or been in a relationship where the following occur: no concerns reported Const General: cooperative, comfortable and no acute distress Orientation/consciousness: patient oriented x3 HENMT Head: Yes normocephalic and Yes atraumatic Eyes General: appearance normal, both eyes and all related structures Pupils: Equal, round and reactive pupils present EOM: EOMs intact bilaterally Neck Neck: Yes supple and No lymphadenopathy Thyroid: Thyroid normal Lymphatic: no lymphadenopathy noted Resp Effort & Inspection: normal respiratory effort and able to speak in complete sentences Auscultation: clear to auscultation bilaterally Cardio Heart sounds: S1 normal heart sound present and S2 normal heart sound present GI Palpation (GI): Soft to palpation and nontender Auscultation: normal bowel sounds General: Yes no CVA tenderness Back/Spine/Pelvis Back: no CVA tenderness Skin General skin exam: elasticity normal and turgor normal Neuro General: patient oriented x3 and gait normal Cranial nerves: Yes Equal, round and reactive pupils present Speech: No Abnormal speech present Sensory Exam: No Sensory deficit (Neuro) Coordination: tandem gait normal and Romberg test negative Extrem General: Yes normal exam except as noted and No edema Assessment and Plan Assessment & Plan (1) Encounter for general adult medical examination with abnormal findings: Code(s): Z00.01 - Encounter for general adult medical examination with abnormal findings (2) T1DM (type 1 diabetes mellitus): Code(s): E10.9 - Type 1 diabetes mellitus without complications Qualifiers: Diabetes mellitus complication status: with circulatory complication (3) HTN (hypertension): Code(s): I10 - Essential (primary) hypertension Qualifiers: Hypertension type: unspecified Qualified Code(s): I10 - Essential (primary) hypertension (4) Lipid disorder: Code(s): E78.9 - Disorder of lipoprotein metabolism, unspecified (5) Erectile dysfunction associated with type 2 diabetes mellitus: Code(s): E11.69 - Type 2 diabetes mellitus with other specified complication; N52.1 - Erectile dysfunction due to diseases classified elsewhere Plan Patient is a 43-year-old gentleman came in today for physical examination Labs done May this year his hemoglobin A1c was 7.2% Other providers patient is seeing are Endocrinology Count includes the [facility] for the management of diabetes and high cholesterol [facility] for erectile dysfunction. [facility] gastroenterology for chronic pancreatitis management He has also seen [facility] Neurology when he was having difficulty with his memory Currently patient is stable and managing his health conditions well No medication from PCP office Labs are through endocrinology Coding Level of Care Code Est Pt Prev Care 40-64y(66469) Diagnoses Encounter for general adult medical examination with abnormal findings Z00. T1DM (type 1 diabetes mellitus) E10.9 Diabetes mellitus complication status: with circulatory complication Hypertension, unspecified type I10 Hypertension type: unspecified Lipid disorder E78.9 Erectile dysfunction associated with type 2 diabetes mellitus E11.69; N52.1 Additional Codes JENNIFER-7 Assessment Billing - JENNIFER-7 Assessment Tool: JENNIFER-7 Assessment [id number] ([id number])
== END 2023-06-19 10:21 | disposition home or self-care (01) ==
PROVIDERS: Visit Provider Internal Medicine
DX: Z00.00 Encounter for general adult medical examination without abnormal findings (principal); I10 Essential (primary) hypertension; E11.69 Type 2 diabetes mellitus with other specified complication; E78.9 Disorder of lipoprotein metabolism, unspecified; N52.1 Erectile dysfunction due to diseases classified elsewhere
CPT/HCPCS: 99396

== ENCOUNTER 2023-12-15 11:00 | Outpatient (AMB) | payer MEDICARE, MEDICAID, SELFPAY ==
--- NOTE | 2023-12-15 11:02 | A.OFFVIS_ITS ---
Intake Vital Signs 12/15/23 11:03 Height 5 ft 5 in Weight 161 lb 13.109 oz BMI 26.9 BP 160/98 H Blood Pressure Location Lt brachial Position Sitting Pulse 105 H Pulse Source Pulse Oximeter Intake Visit Reasons: T1DM/ -confirmed Intake Note: Patient present today to follow up on Type 1 Diabetes Mellitus, last seen on 05/18/2023. Last Diabetic Eye exam: December 2022 Last Podiatry Visit: Last seen over one year ago. Random Glucose: 129 mg/dl HgA1C: 8.1% Food Service Director Required: No Accompanied by: Self / Same As Patient Allergies barley [Barley] Allergy (Severe, Verified 12/15/23 11:08) THROAT SWELLING fish oil [Fish Oil] Allergy (Mild, Verified 12/15/23 11:08) ITCHING fentanyl Allergy (Unknown, Verified 12/15/23 11:08) disorientation gabapentin Adverse Reaction (Unknown, Verified 12/15/23 11:08) mood changes made him angry Medication List - Last Reconciled 12/15/23 by Bj Mathews MD blood sugar diagnostic As directed blood sugar diagnostic ([email or web address] Verio test strips) 2x daily blood-glucose meter (Referanza.comTouch Verio Flex Meter) As directed blood-glucose sensor (Dexcom G6 Sensor device) USE DIRECTED blood-glucose transmitter (Dexcom G6 Transmitter device) USE DIRECTED carisoprodol 350 mg PO dextroamphetamine-amphetamine 20 mg ER 1 cap PO DAILY gemfibrozil 600 mg PO BID glucagon (Glucagon Emergency Kit) 1 mg subcut Q20M PRN insulin glargine (Lantus Solostar U-100 Insulin) INJECT UP TO 34 UNITS UNDER THE SKIN EVERY DAY insulin lispro inject up to 30 units under the skin three times a day per sliding scale subcutaneously 3 times a day; lancets As directed lancets (Referanza.comTouch Delica Plus Lancet) 2x daily lidocaine 5% 1 patch topical DAILY zrafia-qobmhawo-dsuacnk 24,000-76,000 -120,000 unit (Creon) 1 cap PO QID multivitamin 1 tab PO DAILY omeprazole 20 mg PO DAILY oxycodone ER 20 mg PO BID pen needle,diabetic dual safty (BD AutoShield Duo Pen Needle) USE DIRECTED SIX TIMES PER DAY pravastatin 10 mg PO .every other day 30 days sildenafil 100 mg PO DAILY PRN 30 days tadalafil 10 mg PO DAILY 90 days HPI HPI Comments History of Present Illness Details 43 YO M with 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 The patient last saw Dr. Duarte on 05/18/2023 He was diagnosed with hypertriglyceridemia in his youth and did have episodes of pancreatitis. Had another episode of pancreatitis with ARDS and prolonged ICU course in 2016. 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 He is currently managed as a T1DM. 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 Was unable to accurately count carbs and thus has been using just a Novolog sliding scale with meals. He was formerly followed by Dr. Ward at [facility]. Current regimen Lantus 32 units QHS. Humalog sliding scale is: 150-199: 6 U 200-249: 8 U 250 - 299:10 U 300 - 349: 12 U Dexcom download shows average glucose to be 224 with G mi of 8.7% and coeffici ent of variation 28.7%. The Dexcom he is active 99.2% of the time. 29% range with 71% hyperglycemia and no hypoglycemia. Pen shows declining blood sugars overnight with elevation after lunch and slight elevation after dinner Has hypoglycemia awareness. Treats according to the rule of 15's. Has not had any lows recently Most recent A1C: 10/27/2022, unchanged from 7.3% 05/06/2022. Has eyes checked yearly, last eye exam 1 yr ago , no retinopathy.Needs to amke appt Has neuropathy, does not see podiatry. No nephropathy. UAC 69 05/14/2023. Is on Lisinopril 2.5 mg PO daily. No history of HLD, LDL 52 05/14/2023, uses Pravastatin 10 mg PO every other day. Is on Gemfibrozil. No history of CAD. Has had Diabetes Education. Diet/Carb counting: Has issues with carb counting as he had some brain damage after his ICU stay and has difficulty with math, but has been working on this. Denies ever having DKA. Never had severe hypoglycemia. Currently eats 6 times a day. Eats first thing in the morning 5-9 am, 12 pm, 2 pm, 4 pm, 6-8 pm, 10 pm. Labs: Laboratory Tests 05/14/23 05/14/23 05/14/23 07:42 07:42 07:42 Hemoglobin A1c % 7.2 LDL Cholesterol Di rect 52 Microalb/Creat Rat io 69.0 PFSH Medical History Necrotizing pancreatitis Lipid disorder Pancreatitis GERD (gastroesophageal reflux disease) Vitamin D deficiency HLD (hyperlipidemia) HTN (hypertension) T1DM (type 1 diabetes mellitus) Surgical History History of pancreatectomy History of surgery on left wrist Hx of umbilical hernia repair H/O Spinal surgery History of elbow surgery (09/2014) H/O vasectomy Family History Father Diabetes HTN (hypertension) Hyperlipemia Alcohol abuse Substance use disorder Mother Anxiety Depression Diabetes Mental health disorder Brother Kidney failure Mental health disorder Maternal Grandmother Stomach cancer Social History Household Members: Spouse and Children Housing: House Alcohol intake: never Patient Tobacco Use Status: Never used Tobacco e-Cigarette/Vaping Use: Never Used service: No Current occupational status: disabled Cognitive needs: No Hearing needs: No Vision needs: Yes Physical Exam Vital Signs: Last Vital Signs Pulse 105 H 12/15/23 11:03 BP 160/98 H 12/15/23 11:03 BMI result Body Mass Index 26.9 Absence of Cushingoid features. Absence of acromegalic features. Neck exam reveals nl size thyroid about 15 gms. No thyroid nodules palpable. No carotid bruits present. Lungs CTA. Heart S1 S2, Reg R/R. No M/R/ G. Skin exam reveals absence of vitiligo or acanthosis nigricans. Abdominal exam reveals Soft NT/ND with NA BS. No organomegaly present. Neck Other: . Extrem Other: Visual exam of foot performed. No ulcerations or open lesions. No onchomycosis, no callouses.Pulses 2 + distally Sensation intact to monofilament exam. Vibratory sensation sensed is intact with 128 Hz tuning fork Results AMB Hemoglobin A1c AMB Hemoglobin A1c 8.1 % Last Edit by ZURI Conn on 12/15/23 11:22 Assessment & Plan Assessment & Plan (1) T1DM (type 1 diabetes mellitus): Code(s): E10.9 - Type 1 diabetes mellitus without complications Qualifiers: Diabetes mellitus complication status: with circulatory complication Plan: Is a 43-year-old white male with a history of pancrolytic diabetes due to chronic pancreatitis being treated with basal-bolus insulin with poor glycemic control and known microvascular complications namely neuropathy Plan is to have the patient increase Humalog by 2 units parietal lunch . Will also discuss with patient use of various pumps including tandem, Omnipod and iLet which might bebeneficial. We agreed that he would be a good candidate for a iLet considering he will have difficulty carbohydrate counting to the anoxic injury. He is meeting with the consumer educator today to discuss this. Orders: Orders AMB Hemoglobin A1c Today E10.9 - Type 1 diabetes mellitus without complications, Z13.9 - Encounter for screening, unspecified Medications: New glucagon 3 mg/actuation (Baqsimi) 3 mg intranasal ONCE 2 ea 4RF Discontinued glucagon (Glucagon Emergency Kit) until target blood sugar attained Discontinued Reason: Doctor's Order 1 mg subcut Q20M PRN 1 ea 3RF hypoglycemia Coding Level of Care Code Est Pt Level 4 (90646) Diagnoses T1DM (type 1 diabetes mellitus) E10.9 Diabetes mellitus complication status: with circulatory complication
[2023-12-15 11:03] VITALS: BP 160/98; PULSE 105; BMI 26.9
[2023-12-15 11:17] LABS: Glucose, Whole Blood 129 mg/dL (60-115)
== END 2023-12-15 11:50 | disposition home or self-care (01) ==
PROVIDERS: PCP Internal Medicine; Visit Provider Internal Medicine Endocrinology, Diabetes & Metabolism
DX: Z13.9 Encounter for screening, unspecified (principal); E10.9 Type 1 diabetes mellitus without complications
CPT/HCPCS: 99214

== ENCOUNTER → 2023-12-15 11:00 | Outpatient (BNVA) | payer MEDICARE, MEDICAID, SELFPAY | PROVIDERS: PCP Internal Medicine; Visit Provider Internal Medicine Endocrinology, Diabetes & Metabolism | DX: E10.59 Type 1 diabetes mellitus with other circulatory complications (principal); Z79.4 Long term (current) use of insulin | CPT/HCPCS: 82947; 83036; 99211; 99212 ==

== ENCOUNTER 2023-12-15 11:45 | Outpatient (AMB) | payer MEDICARE, MEDICAID, SELFPAY ==
--- NOTE | 2023-12-15 12:00 | MHC.AMDMED ---
Intake Intake Visit Reasons: dm Search Coordinator Required: No Accompanied by: Self / Same As Patient Allergies barley [Barley] Allergy (Severe, Verified 12/15/23 11:08) THROAT SWELLING fish oil [Fish Oil] Allergy (Mild, Verified 12/15/23 11:08) ITCHING fentanyl Allergy (Unknown, Verified 12/15/23 11:08) disorientation gabapentin Adverse Reaction (Unknown, Verified 12/15/23 11:08) mood changes made him angry HPI Comprehensive Diabetes Asmnt General Diabetes type type 1 and insulin-requiring Most Recent Diabetes Results: Microalb/Creat Ratio 69.0 ug/mg cr 05/14/23 Cholesterol 138 mg/dL 05/14/23 HDL Cholesterol 60 mg/dL 05/14/23 Triglycerides 125 mg/dL 05/14/23 Creatinine 0.89 mg/dL (0.5-1.4) 05/14/23 Blood Urea Nitrogen 12 mg/dL (9-16) 05/14/23 Sodium 139 mmol/L (135-145) 05/14/23 Potassium 4.7 mmol/L (3.3-5.1) 05/14/23 Chloride 101 mmol/L (96-108) 05/14/23 Carbon Dioxide 27 mmol/L (22-29) 05/14/23 Calcium 9.9 mg/dL (8.4-10.2) 05/14/23 AST 31 U/L (5-37) 05/14/23 ALT 30 U/L (0-40) 05/14/23 Total Protein 7.6 g/dL (6.5-8.0) 05/14/23 Albumin 4.6 g/dL (3.5-5.0) 05/14/23 [facility] Medical History Necrotizing pancreatitis Lipid disorder Pancreatitis GERD (gastroesophageal reflux disease) Vitamin D deficiency HLD (hyperlipidemia) HTN (hypertension) T1DM (type 1 diabetes mellitus) Surgical History History of pancreatectomy History of surgery on left wrist Hx of umbilical hernia repair H/O Spinal surgery History of elbow surgery (09/2014) H/O vasectomy Family History Father Diabetes HTN (hypertension) Hyperlipemia Alcohol abuse Substance use disorder Mother Anxiety Depression Diabetes Mental health disorder Brother Kidney failure Mental health disorder Maternal Grandmother Stomach cancer Social History Household Members: Spouse and Children Housing: House Alcohol intake: never Patient Tobacco Use Status: Never used Tobacco e-Cigarette/Vaping Use: Never Used service: No Current occupational status: disabled Cognitive needs: No Hearing needs: No Vision needs: Yes Assessment & Plan Assessment & Plan (1) T1DM (type 1 diabetes mellitus): Code(s): E10.9 - Type 1 diabetes mellitus without complications Qualifiers: Diabetes mellitus complication status: with circulatory complication Plan: Pump Assessment: Type of DM: Type 1, due to pancreatectomy Previous DKA: denies Current Insulin Rx: MDI Patient takes insulin as prescribed: yes Patient? checks BG Dexcom G6 Downloaded meter today? Yes Patient's average glucose for the past 2 weeks 224 mg/dL Patient above target 71% Patient at target 29% Patient below target 0% Patient? reports glycemic control as: Poor Most recent Hgb A1C: 8.1% 12/15/2023 Frequency of low BG: Rare Low BG treatment: Fruit juice Frequency of high BG: Daily Does patient check Ketones? Yes Has pt been on a pump in the past? No Reviewed insulin pump basics today with Patient. Explained pros and cons of insulin pumps. Showed pt various pumps, infusion sets, and cgms currently available. Reviewed need to wear pump 24/ and need to change infusion set every 3 days. Also stressed importance of frequent BG checks, 4x daily minimum or use pump that is integrated with CGM.? Patient demonstrated motivation for continued insulin pump education and understands the need to complete education prior to starting insulin pump for best outcome. Due to patient's difficulty with carb counting patient is interested in iLet insulin pump Patient Instructions: Patient will follow-up with perioperative educator in 2 weeks Patient given sample Dexcom G7 sensor with pensionholder information clerk, message sent to Dr. Mathews to send prescription for Dexcom G7 sensors to patient's pharmacy Coding Level of Care Code Est Pt Level 1 (05467) Diagnoses T1DM (type 1 diabetes mellitus) E10.9 Diabetes mellitus complication status: with circulatory complication Results AMB Hemoglobin A1c AMB Hemoglobin A1c 8.1 % Last Edit by ZURI Conn on 12/15/23 11:22
== END 2023-12-15 12:04 | disposition home or self-care (01) ==
PROVIDERS: PCP Internal Medicine; Visit Provider Registered Nurse Diabetes Educator
DX: E10.9 Type 1 diabetes mellitus without complications (principal)

== ENCOUNTER 2023-12-29 09:00 | Outpatient (AMB) | payer MEDICARE, MEDICAID, SELFPAY ==
--- NOTE | 2023-12-29 09:49 | MHC.AMDMED ---
Intake Intake Visit Reasons: 30 min Tool And Machine Maintainer Required: No Accompanied by: Self / Same As Patient Allergies barley [Barley] Allergy (Severe, Verified 12/15/23 11:08) THROAT SWELLING fish oil [Fish Oil] Allergy (Mild, Verified 12/15/23 11:08) ITCHING fentanyl Allergy (Unknown, Verified 12/15/23 11:08) disorientation gabapentin Adverse Reaction (Unknown, Verified 12/15/23 11:08) mood changes made him angry HPI Comprehensive Diabetes Asmnt Most Recent Diabetes Results: Microalb/Creat Ratio 69.0 ug/mg cr 05/14/23 Cholesterol 138 mg/dL 05/14/23 HDL Cholesterol 60 mg/dL 05/14/23 Triglycerides 125 mg/dL 05/14/23 Creatinine 0.89 mg/dL (0.5-1.4) 05/14/23 Blood Urea Nitrogen 12 mg/dL (9-16) 05/14/23 Sodium 139 mmol/L (135-145) 05/14/23 Potassium 4.7 mmol/L (3.3-5.1) 05/14/23 Chloride 101 mmol/L (96-108) 05/14/23 Carbon Dioxide 27 mmol/L (22-29) 05/14/23 Calcium 9.9 mg/dL (8.4-10.2) 05/14/23 AST 31 U/L (5-37) 05/14/23 ALT 30 U/L (0-40) 05/14/23 Total Protein 7.6 g/dL (6.5-8.0) 05/14/23 Albumin 4.6 g/dL (3.5-5.0) 05/14/23 [facility] Medical History Necrotizing pancreatitis Lipid disorder Pancreatitis GERD (gastroesophageal reflux disease) Vitamin D deficiency HLD (hyperlipidemia) HTN (hypertension) T1DM (type 1 diabetes mellitus) Surgical History History of pancreatectomy History of surgery on left wrist Hx of umbilical hernia repair H/O Spinal surgery History of elbow surgery (09/2014) H/O vasectomy Family History Father Diabetes HTN (hypertension) Hyperlipemia Alcohol abuse Substance use disorder Mother Anxiety Depression Diabetes Mental health disorder Brother Kidney failure Mental health disorder Maternal Grandmother Stomach cancer Social History Household Members: Spouse and Children Housing: House Alcohol intake: never Patient Tobacco Use Status: Never used Tobacco e-Cigarette/Vaping Use: Never Used service: No Current occupational status: disabled Cognitive needs: No Hearing needs: No Vision needs: Yes Assessment & Plan Assessment & Plan (1) T1DM (type 1 diabetes mellitus): Code(s): E10.9 - Type 1 diabetes mellitus without complications Qualifiers: Diabetes mellitus complication status: with circulatory complication Plan: Personal Continuous Glucose Monitor: Patients CGM information reviewed Reviewed patient's sensor data: Hypoglycemia: ? 0% Hyperglycemia:? 86% Time in Range:? 14% Average glucose for the last 2 weeks? 250 mg/dL Further discussed the iLet insulin pump with patient at this visit. Patient had requested prescriptions for Dexcom G7 sensors, Lantus, and BD auto shield pen needles be sent to pharmacy. Refill message sent. There was limited data at today's visit, it does appear that patient trend downward overnight which may mean Lantus dose needs adjustment at this time we did not have enough data to adjust Lantus. Patient reports his weather gets better he does self adjust his insulin as his glucose levels improve. Patient will follow-up with Diabetes Education nurse after next visit with Dr. Mathews Instructed patient to contact seo coordinator with questions or concerns Message sent to Dr. Mathews to request prescription for Gvoke Hypopens, because baqsimi is not covered by insurance Reviewed how to interpret trend arrows Reminded patient that to check finger sticks if symptoms do not match sensor reading. Discussed lag time between finger stick and sensor data.? Patient able to insert sensor independently at home without issue.? Patient Instructions: Follow-up with seo coordinator after next visit with Dr. Mathews Coding Level of Care Code Est Pt Level 1 (48777) Diagnoses T1DM (type 1 diabetes mellitus) E10.9 Diabetes mellitus complication status: with circulatory complication
== END 2023-12-29 09:45 | disposition home or self-care (01) ==
PROVIDERS: PCP Internal Medicine; Visit Provider Registered Nurse Diabetes Educator
DX: E10.9 Type 1 diabetes mellitus without complications (principal)

== ENCOUNTER → 2023-12-29 09:00 | Outpatient (BNVA) | payer MEDICARE, MEDICAID, SELFPAY | PROVIDERS: PCP Internal Medicine; Visit Provider Registered Nurse Diabetes Educator | DX: E10.9 Type 1 diabetes mellitus without complications (principal) | CPT/HCPCS: 99211 ==

== ENCOUNTER 2024-03-30 08:28 | Outpatient (AMB) | payer MEDICARE, MEDICAID, SELFPAY ==
--- NOTE | 2024-03-30 08:29 | A.OFFVIS_ITS ---
Vital Signs 03/30/24 08:33 Height 5 ft 5 in Weight 156 lb 15.506 oz BMI 26.1 BP 142/90 H Blood Pressure Location Lt brachial Position Sitting Pulse 114 H Pulse Source Pulse Oximeter Intake Visit Reasons: DM Intake Note: Patient present today to follow up on Type 1 Diabetes Mellitus. Last seen by Dr. Mathews on 12/15/2023. Patient receives DME supplies through: Pharmacy Last Diabetic Eye exam: Due for exam, has to change eye doctors due to insurance Last Podiatry Visit: Has a Head Doffer if needed Random Glucose: 179 mg/dl HgA1C: 7.7% Customer Resolution Specialist Required: No Accompanied by: Self / Same As Patient Allergies barley [Barley] Allergy (Severe, Verified 03/30/24 08:34) THROAT SWELLING fish oil [Fish Oil] Allergy (Mild, Verified 03/30/24 08:34) ITCHING fentanyl Allergy (Unknown, Verified 03/30/24 08:34) disorientation gabapentin Adverse Reaction (Unknown, Verified 03/30/24 08:34) mood changes made him angry HPI Comments Details: HPI HPI Comments History of Present Illness Details 43 YO M with 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 The patient last saw Dr. Mathews on 12/15/23 and CDE on 12/29/23. - - - - - - - - - - - - - - - - - - - - - - - - - - - - - - - - - - - - - - - - - - - - - - - - - - - - - - - - - - - - - - - - - - - - - - - - - He was diagnosed with hypertriglyceridemia in his youth and did have e pisodes of pancreatitis. Had another episode of pancreatitis with ARDS and prolonged ICU course in 2016. 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 He is currently managed as a T1DM. 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 Was unable to accurately count carbs and thus has been using just a short actiting sliding scale with meals. He was formerly followed by Dr. Ward at [facility]. Current regimen Lantus 34 units QHS. Humalog sliding scale is: 150-199: 6 U 200-249: 8 U 250 - 299:10 U 300 - 349: 12 U At times he takes Humalog just twice daily and does not cover one of his meals if he is more active than usual. He does try to exercise on a regular basis but is limited by chronic pain. IF he is running high, he make take an extra dose of insulin with meals. He generally follows the above scale but does vary somewhat. Dexcom download shows average glucose to be 212 with Gmi of 8.4%. The Dexcom he is active 93% of the time. 35% in range with 64% hyperglycemia and low less than 1%. Sensor report shows post prandial elevations after lunch and supper. Has hypoglycemia awareness. Treats according to the rule of 15's. Had one low a t 6:30am Most recent A1C: 03/30/24 7.7%, 05/14/23 7.2%, 01/04/24 8.1%, Has eyes checked yearly, last eye exam 03/03 he will schedule , no retinopathy. Has neuropathy, does not see podiatry. No nephropathy. UAC 69 05/14/2023. Is on Lisinopril 2.5 mg PO daily. No history of HLD, LDL 52 05/14/2023, uses Pravastatin 10 mg PO every other day. Is on Gemfibrozil. No history of CAD. Has had Diabetes Education. Diet/Carb counting: Has issues with carb counting as he had some brain damage after his ICU stay and has difficulty with math, but has been working on this. Denies ever having DKA. Never had severe hypoglycemia. Currently eats 6 times a day and is on pancreatic enzyme. [facility] Medical History Necrotizing pancreatitis Lipid disorder Pancreatitis GERD (gastroesophageal reflux disease) Vitamin D deficiency HLD (hyperlipidemia) HTN (hypertension) T1DM (type 1 diabetes mellitus) Surgical History History of pancreatectomy History of surgery on left wrist Hx of umbilical hernia repair H/O Spinal surgery History of elbow surgery (09/2014) H/O vasectomy Family History Father Diabetes HTN (hypertension) Hyperlipemia Alcohol abuse Substance use disorder Mother Anxiety Depression Diabetes Mental health disorder Brother Kidney failure Mental health disorder Maternal Grandmother Stomach cancer Social History Household Members: Spouse and Children Housing: House Alcohol intake: never Patient Tobacco Use Status: Never used Tobacco e-Cigarette/Vaping Use: Never Used service: No Current occupational status: disabled Cognitive needs: No Hearing needs: No Vision needs: Yes Review of Systems Const Details: Denies neuropathy and cramping. Some digestive issues secondary to pancreatic insufficiency. He does f/u regularly with a GI specialist. Denies CP/LU Physical Exam Vital Signs: Last Vital Signs Pulse 114 H 03/30/24 08:33 BP 142/90 H 03/30/24 08:33 BMI result Body Mass Index 26.1 Const General: cooperative, healthy appearing, no acute distress, well developed, alert and awake; No acute distress Orientation/consciousness: patient oriented x3 HEENT Other: NC/AT, no deformity Head: Yes normal to inspection, Yes normocephalic and Yes atraumatic Mouth: moist mucous membranes Eyes Other: Sclera anicteric, no exophthalmos, proptotis, chemosis or periorbital edema Neck Other: Trachea midline with full ROM. No thyromegaly, no palpable thyroid nodules, thyroid nontender to palpation. Neck: Yes no lymphadenopathy, Yes trachea midline and Yes supple Thyroid: Thyroid normal Resp Effort & Inspection: normal respiratory effort Auscultation: clear to auscultation bilaterally, no rales, no rhonchi and no wheezes Cardio Rate: regular rate Rhythm: regular rhythm Heart sounds: no gallops, no murmurs and no rubs Skin General skin exam: no rashes or lesions noted Hair: normal Neuro General: patient oriented x3 Extrem General: No edema Results AMB Hemoglobin A1c AMB Hemoglobin A1c 7.7 % Last Edit by ZURI Duarte on 03/30/24 08:53 Results Reviewed Results Reviewed: Laboratory Last Values Glucose (Clinic) 179 mg/dL (60-115) H 03/30/24 08:41 Hgb A1c (Clinic) 7.7 % (4.0-6.0) H 03/30/24 08:44 Assessment & Plan Assessment & Plan (1) T1DM (type 1 diabetes mellitus): Code(s): E10.9 - Type 1 diabetes mellitus without complications Category: Medical Qualifiers: Diabetes mellitus complication status: with circulatory complication Plan: Patient will return to office later this week to begin pre pump training. He is interested in the Ilet pump. He understands that he will need to give up some of the control he has and to let the pump learn his usual meal patterns and response to varying levels of carb. We briefly reviewed DKA and I advised him that once he starts the pump he screen shot the DKA tear off sheet so that he will have it with him at all times. We reviewed need to keep a sugar source at all times. He has an emergency kit and all members of his family know how to use it. He will have a fasting c-peptide in the lab on a day that his glucose is un nahomi 90. greater than 50% of time spent in counseling patient. (2) HLD (hyperlipidemia): Code(s): E78.5 - Hyperlipidemia, unspecified Category: Medical Qualifiers: Hyperlipidemia type: unspecified Qualified Code(s): E78.5 - Hyperlipidemia, unspecified Plan: Continue statin and gemfibrozil. Check fasting lipid profile. (3) HTN (hypertension): Code(s): I10 - Essential (primary) hypertension Category: Medical Qualifiers: Hypertension type: unspecified Qualified Code(s): I10 - Essential (primary) hypertension Plan: not at target. Patient reports being nervous this am secondary to new provider. Will check BP next visit and determine if RX needed. Plan as above Orders: Orders Comprehensive [place]. Panel Fast 7 Days E11.69 - Type 2 diabetes mellitus with other specified complication, N52.1 - Erectile dysfunction due to diseases classified elsewhere Microalbumin, Random (w Creat) 7 Days E10.9 - Type 1 diabetes mellitus without complications Lipid Panel 7 Days E78.5 - Hyperlipidemia, unspecified AMB Hemoglobin A1c Today E10.9 - Type 1 diabetes mellitus without complications C Peptide 7 Days E10.9 - Type 1 diabetes mellitus without complications Thyroid Stimulating Hormone 7 Days E10.9 - Type 1 diabetes mellitus without complications Coding Level of Care Code Est Pt Level 4 (02520) Complex EM visit Add On [id number] Diagnoses T1DM (type 1 diabetes mellitus) E10.9 Diabetes mellitus complication status: with circulatory complication Hyperlipidemia, unspecified hyperlipidemia type E78.5 Hyperlipidemia type: unspecified Hypertension, unspecified type I10 Hypertension type: unspecified Time Spent (min) 45 Comment chart review 15 min face to face 30 minutes
[2024-03-30 08:33] VITALS: BP 142/90; PULSE 114; BMI 26.1
[2024-03-30 08:45] LABS: Glucose, Whole Blood 179 mg/dL (60-115)
== END 2024-03-30 09:16 | disposition home or self-care (01) ==
PROVIDERS: PCP Internal Medicine; Visit Provider Nurse Practitioner Adult Health
DX: E10.9 Type 1 diabetes mellitus without complications (principal); E78.5 Hyperlipidemia, unspecified; I10 Essential (primary) hypertension
CPT/HCPCS: 99215; G2211

== ENCOUNTER → 2024-03-30 08:28 | Outpatient (BNVA) | payer MEDICARE, MEDICAID, SELFPAY | PROVIDERS: PCP Internal Medicine; Visit Provider Nurse Practitioner Adult Health | DX: E10.9 Type 1 diabetes mellitus without complications (principal); E78.5 Hyperlipidemia, unspecified; I10 Essential (primary) hypertension | CPT/HCPCS: 82947; 83036; 99212 ==

== ENCOUNTER 2024-04-12 08:29 | Outpatient (AMB) | payer MEDICARE, MEDICAID, SELFPAY ==
--- NOTE | 2024-04-12 08:54 | A.OFFVIS_ITS ---
Intake Intake Visit Reasons: DM/LVM Air Traffic Control Operator Required: No Accompanied by: Self / Same As Patient Allergies barley [Barley] Allergy (Severe, Verified 03/30/24 08:34) THROAT SWELLING fish oil [Fish Oil] Allergy (Mild, Verified 03/30/24 08:34) ITCHING fentanyl Allergy (Unknown, Verified 03/30/24 08:34) disorientation gabapentin Adverse Reaction (Unknown, Verified 03/30/24 08:34) mood changes made him angry HPI Comprehensive Diabetes Asmnt Most Recent Diabetes Results: No Data to Display [facility] Medical History Necrotizing pancreatitis Lipid disorder Pancreatitis GERD (gastroesophageal reflux disease) Vitamin D deficiency HLD (hyperlipidemia) HTN (hypertension) T1DM (type 1 diabetes mellitus) Surgical History History of pancreatectomy History of surgery on left wrist Hx of umbilical hernia repair H/O Spinal surgery History of elbow surgery (09/2014) H/O vasectomy Family History Father Diabetes HTN (hypertension) Hyperlipemia Alcohol abuse Substance use disorder Mother Anxiety Depression Diabetes Mental health disorder Brother Kidney failure Mental health disorder Maternal Grandmother Stomach cancer Social History Household Members: Spouse and Children Housing: House Alcohol intake: never Patient Tobacco Use Status: Never used Tobacco e-Cigarette/Vaping Use: Never Used service: No Current occupational status: disabled Cognitive needs: No Hearing needs: No Vision needs: Yes Assessment & Plan Assessment & Plan (1) T1DM (type 1 diabetes mellitus): Code(s): E10.9 - Type 1 diabetes mellitus without complications Qualifiers: Diabetes mellitus complication status: with circulatory complication Plan: Patient here to discuss insulin pump therapy Type of DM: Type 1 Dx at age: 36 Previous DKA: Denies Current Insulin Rx: MDI Patient takes insulin as prescribed: yes Patient? checks BG Dexcom G7 Downloaded meter today Patient's average glucose for the past 14 days 216 mg/dL Patient above target 67% Patient at target 33% Patient below target 0% Most recent Hgb A1C: 7.7% on 03/30/24 Does patient check Ketones? Patient reports he has unexpired ketone strips at home, reviewed rules for when to test for ketones. iLet ketone action plan handout given to patient Reviewed insulin pump basics today with Patient. Explained pros and cons of insulin pumps. Showed pt various pumps, infusion sets, and cgms currently available. Reviewed need to wear pump 24/7 and need to change infusion set every 3 days. Also stressed importance of frequent BG checks, 4x daily minimum or use pump that is integrated with CGM.? TDD:70 units daily Patient demonstrated motivation for continued insulin pump education and understands the need to complete education prior to starting insulin pump for best outcome. Patient has chosen iLet insulin pump Portions of this note were created using voice recognition software, please excuse any words or phrases that may have been misinterpreted. Coding Level of Care Code Est Pt Level 1 (93054) Diagnoses T1DM (type 1 diabetes mellitus) E10.9 Diabetes mellitus complication status: with circulatory complication
== END 2024-04-12 08:56 | disposition home or self-care (01) ==
PROVIDERS: PCP Internal Medicine; Visit Provider Registered Nurse Diabetes Educator
DX: E10.9 Type 1 diabetes mellitus without complications (principal)

== ENCOUNTER → 2024-04-12 08:29 | Outpatient (BNVA) | payer MEDICARE, MEDICAID, SELFPAY | PROVIDERS: PCP Internal Medicine; Visit Provider Registered Nurse Diabetes Educator | DX: E10.59 Type 1 diabetes mellitus with other circulatory complications (principal); Z46.81 Encounter for fitting and adjustment of insulin pump; Z96.41 Presence of insulin pump (external) (internal) | CPT/HCPCS: 99211 ==

== ENCOUNTER 2024-05-10 08:39 | Outpatient (AMB) | payer MEDICARE, MEDICAID, SELFPAY ==
--- NOTE | 2024-05-10 08:50 | A.OFFVIS_ITS ---
Intake Visit Reasons: 1Y Follow Up-Erectile Dysfunction Intake Note: Patient is present for Yearly Follow up Uro Medication: Tadalafil,Sildenafil Allergies barley [Barley] Allergy (Severe, Verified 03/30/24 08:34) THROAT SWELLING fish oil [Fish Oil] Allergy (Mild, Verified 03/30/24 08:34) ITCHING fentanyl Allergy (Unknown, Verified 03/30/24 08:34) disorientation gabapentin Adverse Reaction (Unknown, Verified 03/30/24 08:34) mood changes made him angry Medication List - Last Reconciled 05/10/24 by Kiet Soriano MD blood sugar diagnostic As directed blood sugar diagnostic ([employer] Verio test strips) 2x daily blood-glucose meter ([employer]Touch Verio Flex Meter) As directed blood-glucose sensor ([employer] G7 Sensor device) As directed change every 10 days carisoprodol 350 mg PO dextroamphetamine-amphetamine 20 mg ER 1 cap PO DAILY gemfibrozil 600 mg PO BID glucagon (Gvoke HypoPen 2-Pack) 1 mg (0.2 mL) subcut ONCE insulin glargine (Lantus Solostar U-100 Insulin) INJECT UP TO 34 UNITS UNDER THE SKIN EVERY DAY insulin lispro 1 sliding scale dose subcut TID 30 days lancets As directed lancets ([employer]Touch Delica Plus Lancet) 2x daily lidocaine 5% 1 patch topical DAILY oyqqys-mjzznxft-wudjdld 24,000-76,000 -120,000 unit (Creon) 1 cap PO QID gjrebw-zmrlgrwf-kmjcyiq 497 mg (20,000- 75K-66.4K unit) caps PO multivitamin 1 tab PO DAILY omeprazole 20 mg PO DAILY oxycodone ER 20 mg PO BID pen needle,diabetic dual safty (BD AutoShield Duo Pen Needle) USE DIRECTED UP TO 6 TIMES PER DAY pravastatin 10 mg PO .every other day 30 days sildenafil 100 mg PO DAILY PRN 30 days tadalafil 10 mg PO DAILY 90 days HPI Comments Details: Mr Wick is a very pleasant male. He is a patient of Dr Tillman. He is seen for the following urologic conditions. - erectile dysfunction secondary to diabetes Stable with tadalafil Prescription provided Generally stable Has had issues with sugar control since since insurance company changed insulin formulation Genitourinary symptoms:? 12/27 Presents with questions regarding scarring to his penis. Had been admitted to ICU and was in a coma for 6 weeks. At that time had blistering on his penis which has led to some degree of scarring. On examination this appears to have been superficial but involved the pigmented LAD. Is minimal scarring. There is evidence of the blistering that is now well-healed running down the le ft lateral side of the penis. The meatus is normal. He does also suffer from inguinal disruption particularly on the right side with pain at the insertion between his rectus and his symphysis pubis. This will resolve slowly over 3 months as his strength is builds back up again. This was all result of pancreatitis secondary to gallstones and familial triglyceridemia ?12/28 Fully healed skin on penis - describes areas of decreased sensitivity, glans sensitivity normal. Unlikely to recover superfiical skin sensitivity. ?Has right sided inguinal disruption with pain on palpation of the rectus insertion ?Intermittent trouble with erections - has been using L-Arginine for low nitrogren- offered sildenafil and rx provided ?01/29 switched to daily tadalafil. Has memory issues so planning with sildenafil has been a challenge. Had been using L arginine for low nitrogen. Discussed his diabetic control ?04/30 good effect with daily tadalafil. Will continue to follow [facility] Medical History Necrotizing pancreatitis Lipid disorder Pancreatitis GERD (gastroesophageal reflux disease) Vitamin D deficiency HLD (hyperlipidemia) HTN (hypertension) T1DM (type 1 diabetes mellitus) Surgical History History of pancreatectomy History of surgery on left wrist Hx of umbilical hernia repair H/O Spinal surgery History of elbow surgery (09/2014) H/O vasectomy Family History Father Diabetes HTN (hypertension) Hyperlipemia Alcohol abuse Substance use disorder Mother Anxiety Depression Diabetes Mental health disorder Brother Kidney failure Mental health disorder Maternal Grandmother Stomach cancer Social History Household Members: Spouse and Children Housing: House Alcohol intake: never Patient Tobacco Use Status: Never used Tobacco e-Cigarette/Vaping Use: Never Used service: No Current occupational status: disabled Cognitive needs: No Hearing needs: No Vision needs: Yes Review of Systems Const Denies chills and Denies fever(s) Card Reports no additional complaints and Denies syncope Resp Denies cough GI Denies abdominal pain and Denies heartburn Reports as per HPI and Denies change in libido Neuro Denies syncope Psych Denies change in libido Endo Denies change in libido Physical Exam Const General: cooperative, healthy appearing, comfortable and no acute distress Orientation/consciousness: patient oriented x3 HEENT Face and sinus: Yes normal facial exam Mouth: moist mucous membranes Neck Neck: Yes normal visual inspection, Yes full ROM and Yes trachea midline Chest Chest palpation & inspection: normal inspection of the chest Resp Effort & Inspection: normal respiratory effort, able to speak in complete sentences and no respiratory distress GI Inspection: Yes normal to inspection Back/Spine/Pelvis Cervical Spine: normal cervical lordosis Thoracic/Lumbar Spine: thoracic and lumbar spine normal to inspection Skin General skin exam: no rashes or lesions noted Neuro General: patient oriented x3, gait normal, tone normal and moves all extremities Extrem General: Yes normal to inspection and Yes capillary refill normal Assessment & Plan Assessment & Plan (1) Erectile dysfunction associated with type 2 diabetes mellitus: Code(s): E11.69 - Type 2 diabetes mellitus with other specified complication; N52.1 - Erectile dysfunction due to diseases classified elsewhere Category: Medical Plan Refill tadalafil Refill sildenafil 1 year follow-up office Medications: Refilled tadalafil 10 mg PO DAILY 90 tabs 3RF 90 days E11.69 - Type 2 diabetes mellitus with other specified complication, N52.1 - Erectile dysfunction due to diseases classified elsewhere sildenafil administer 60 minutes before intended activity 100 mg PO DAILY PRN 30 tabs 1RF sexual activity 30 days E11.69 - Type 2 diabetes mellitus with other specified complication, N52.1 - Erectile dysfunction due to diseases classified elsewhere Patient Instructions: Imaging studies, laboratory and physical exam results were discussed and reviewed in detail. No major barriers to patient understanding were identified. An opportunity to ask questions regarding the treatment plan was provided. All questions were answered. The patient expressed understanding and agreement with the above treatment plan. The patient is aware they should contact our office by phone for worsening of their current condition or the appearance of new urologic symptoms. Compliance is encouraged with any medications and followup testing that is ordered. It is a privilege to participate in the urologic care of your patient. If you have any questions or concerns regarding treatment for the above conditions, or other urologic issues, please do not hesitate to contact me. The office telephone contact is [phone]. This note is constructed using voice recognition software. While every effort has been made to ensure accuracy systems test analyst errors may have been included. Yours sincerely, Dr Kiet Soriano MD, [facility] - Urology Providers of Expert, Compassionate Care for the Genitourinary System Coding Level of Care Code Est Pt Level 3 (98253) Diagnoses Erectile dysfunction associated with type 2 diabetes mellitus E11.69; N52.1
== END 2024-05-10 09:22 | disposition home or self-care (01) ==
PROVIDERS: PCP Internal Medicine; Visit Provider Urology
DX: E11.69 Type 2 diabetes mellitus with other specified complication (principal); N52.1 Erectile dysfunction due to diseases classified elsewhere
CPT/HCPCS: 99213

== ENCOUNTER → 2024-05-10 08:39 | Outpatient (BNVA) | payer MEDICARE, MEDICAID, SELFPAY | PROVIDERS: PCP Internal Medicine; Visit Provider Urology | DX: E11.69 Type 2 diabetes mellitus with other specified complication (principal); N52.1 Erectile dysfunction due to diseases classified elsewhere | CPT/HCPCS: 99212 ==

== ENCOUNTER 2024-07-05 07:56 | Outpatient (AMB) | payer MEDICARE, MEDICAID, SELFPAY ==
--- NOTE | 2024-07-05 07:45 | A.OFFVIS_ITS ---
Vital Signs 07/05/24 08:00 Height 5 ft 5 in Weight 152 lb 1.903 oz BMI 25.3 BP 132/80 Blood Pressure Location Rt brachial Position Sitting Pulse 95 Pulse Source Pulse Oximeter Intake Visit Reasons: DM/CONFIRMED Intake Note: Patient present today to follow up on Type 1 Diabetes Mellitus. Patient receives DME supplies through: Pharmacy Last Diabetic Eye exam: Due for exam, has to change eye doctors due to insurance Last Podiatry Visit: Has a Bladder Cleaner if needed Most recent HbA1c: 8.0%, 07/05/2024 Random Glucose: 160 mg/dL, Sports Attorney Required: No Allergies barley [Barley] Allergy (Severe, Verified 03/30/24 08:34) THROAT SWELLING fish oil [Fish Oil] Allergy (Mild, Verified 03/30/24 08:34) ITCHING fentanyl Allergy (Unknown, Verified 03/30/24 08:34) disorientation gabapentin Adverse Reaction (Unknown, Verified 03/30/24 08:34) mood changes made him angry HPI Comments Details: 44 YO M with 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 He is seen in F/U for diabetes related to pancreatic - - - - - - - - - - - - - - - - - - - - - - - - - - - - - - - - - - - - - - - He was diagnosed with hypertriglyceridemia in his youth and did have episodes of pancreatitis. Had another episode of pancreatitis with ARDS and prolonged ICU course in 2016. 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 He is currently managed as a T1DM. 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 Was unable to accurately count carbs and thus has been using just a short actiing sliding scale with meals. He was formerly followed by Dr. Ward at [facility]. He has been doing well with pump training with goal of an islet pump. Current regimen Lantus 25-34 units QHS Humalog sliding scale is: 150-199: 6 U 200-249: 8 U 250 - 299:10 U 300 - 349+: 12 U At times he takes Humalog just twice daily and does not cover one of his meals if he is more active than usual. He does try to exercise on a regular basis but is limited by chronic pain. If he is running high, he may take an extra dose of insulin with meals. He generally follows the above scale but does vary somewhat. He is adjusting lantus to prevent lows Has hypoglycemia awareness. Treats according to the rule of 15's. Had one low at 6:30am Most recent A1C: 07/05/24 8%, 03/30/24 7.7%, 05/14/23 7.2%, 01/04/24 8.1% Has eyes checked yearly, last eye exam 03/03 he will schedule , no retinopathy. Has neuropathy, does not see podiatry. No nephropathy. UAC 69 05/14/2023. Is on Lisinopril 2.5 mg PO daily. No history of HLD, LDL 52 05/14/2023, uses Pravastatin 10 mg PO every other day. Is on Gemfibrozil No history of CAD. Has had Diabetes Education. Diet/Carb counting: Has issues with carb counting as he had some brain damage after his ICU stay and has difficulty with math, but has been working on this. He is now meeting with [facility] for pre pump education for an Ilet pump. Denies ever having DKA. Never had severe hypoglycemia. Currently eats 6 times a day and is on pancreatic enzyme [facility] Medical History Necrotizing pancreatitis Lipid disorder Pancreatitis GERD (gastroesophageal reflux disease) Vitamin D deficiency HLD (hyperlipidemia) HTN (hypertension) T1DM (type 1 diabetes mellitus) Surgical History History of pancreatectomy History of surgery on left wrist Hx of umbilical hernia repair H/O Spinal surgery History of elbow surgery (09/2014) H/O vasectomy Family History Father Diabetes HTN (hypertension) Hyperlipemia Alcohol abuse Substance use disorder Mother Anxiety Depression Diabetes Mental health disorder Brother Kidney failure Mental health disorder Maternal Grandmother Stomach cancer Social History Household Members: Spouse and Children Housing: House Alcohol intake: never Patient Tobacco Use Status: Never used Tobacco e-Cigarette/Vaping Use: Never Used service: No Current occupational status: disabled Cognitive needs: No Hearing needs: No Vision needs: Yes Physical Exam Vital Signs: Last Vital Signs Pulse 95 07/05/24 08:00 BP 132/80 07/05/24 08:00 BMI result Body Mass Index 25.3 Const Other: Absence of Cushingoid features. Absence of acromegalic features. Neck exam reveals nl size thyroid about 15 gms. No thyroid nodules palpable. No carotid bruits present. Lungs CTA. Heart S1 S2, Reg R/R. No M/R G. Skin exam reveals absence of vitiligo or acanthosis nigricans. No edema Visual exam of foot performed. No ulcerations or open lesions. No inter digit maceration or fissuring. No onychomycosis, no callouses. Sensation intact to monofilament exam. Vibratory sensation is normal with 128 Hz tuning fork. 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 Diabetic complications: neuropathy. He has been advised to have fasting blood work and continue with pre pump educ ation. Once he completes pre pump education and has fasting c peptide will initiate pump. Patient prefers supplies 90 days. today will send insulin pens and will send vials when pump is approved.. Sent new prescription for ketone test strips Orders: Orders AMB Hemoglobin A1c Today E10.9 - Type 1 diabetes mellitus without complications Medications: New acetone (urine) test (Ketone Urine Test strips) As directed prn glucose over 250, illness, nausea and vomiting 25 ea 2RF Patient Instructions: Symptoms of DKA were reviewed: early: frequent urination, dry mouth, fatigue, feeling ill, severe symptoms: ketones in the urine, abdominal pain, nausea, vomiting and weakness. It is important to hydrate with sugar free liquids every 30 minutes and bring the sugars down to normal levels. The patient was counseled to achieve a target A1C of 7% (154 avg). Fasting blood sugars should be 90-130 in the morning and less than 180 two hours after meals. Reviewed the relationship between poor diabetic control and the developement of complications The patient was counseled to wear closed toe shoes, never walk barefooted and to inspect the feet daily. For any signs of infection or open wound patient should notify PCP or go to urgent care. Troubleshooting after starting new pod or inserting new insulin set: Occlusion, adhesive tape sensitivity, redness Check BG 2 hours after site change Safety information: Importance of a backup plan, for manual injections, proper prescriptions and emergency supplies ketone strips, and rules for testing for ketones Need for glucometer, lancets and test strips in the event he does not have a dexcom to operate pump it will run 48 hours with q 4 fingerstick sugars Coding Level of Care Code Est Pt Level 4 (97693) Complex EM visit Add On G2211 Diagnoses T1DM (type 1 diabetes mellitus) E10.9 Diabetes mellitus complication status: with circulatory complication Time Spent (min) 35 Comment Time spent reviewing labs/provider notes, face to face, chart doc
[2024-07-05 08:00] VITALS: BP 132/80; PULSE 95; BMI 25.3
[2024-07-05 08:11] LABS: Glucose, Whole Blood 160 mg/dL (60-115)
== END 2024-07-05 08:30 | disposition home or self-care (01) ==
PROVIDERS: PCP Internal Medicine; Visit Provider Nurse Practitioner Adult Health
DX: E10.9 Type 1 diabetes mellitus without complications (principal)
CPT/HCPCS: 99214; G2211

== ENCOUNTER → 2024-07-05 07:56 | Outpatient (BNVA) | payer MEDICARE, MEDICAID, SELFPAY | PROVIDERS: PCP Internal Medicine; Visit Provider Nurse Practitioner Adult Health | DX: E10.9 Type 1 diabetes mellitus without complications (principal) | CPT/HCPCS: 82947; 83036; 99212 ==

== ENCOUNTER 2024-07-20 07:54 | Outpatient (AMB) | payer MEDICARE, MEDICAID, SELFPAY ==
--- NOTE | 2024-07-20 08:36 | MHC.AMDMED ---
Intake Intake Visit Reasons: DM-lvm Process Maintenance Technician Required: No Accompanied by: Self / Same As Patient Allergies barley [Barley] Allergy (Severe, Verified 03/30/24 08:34) THROAT SWELLING fish oil [Fish Oil] Allergy (Mild, Verified 03/30/24 08:34) ITCHING fentanyl Allergy (Unknown, Verified 03/30/24 08:34) disorientation gabapentin Adverse Reaction (Unknown, Verified 03/30/24 08:34) mood changes made him angry HPI Comprehensive Diabetes Asmnt Most Recent Diabetes Results: Microalb/Creat Ratio 69.0 ug/mg cr 05/14/23 Cholesterol 138 mg/dL 05/14/23 HDL Cholesterol 60 mg/dL 05/14/23 Triglycerides 125 mg/dL 05/14/23 Creatinine 0.89 mg/dL (0.5-1.4) 05/14/23 Blood Urea Nitrogen 12 mg/dL (9-16) 05/14/23 Sodium 139 mmol/L (135-145) 05/14/23 Potassium 4.7 mmol/L (3.3-5.1) 05/14/23 Chloride 101 mmol/L (96-108) 05/14/23 Carbon Dioxide 27 mmol/L (22-29) 05/14/23 Calcium 9.9 mg/dL (8.4-10.2) 05/14/23 AST 31 U/L (5-37) 05/14/23 ALT 30 U/L (0-40) 05/14/23 Total Protein 7.6 g/dL (6.5-8.0) 05/14/23 Albumin 4.6 g/dL (3.5-5.0) 05/14/23 [facility] Medical History Necrotizing pancreatitis Lipid disorder Pancreatitis GERD (gastroesophageal reflux disease) Vitamin D deficiency HLD (hyperlipidemia) HTN (hypertension) T1DM (type 1 diabetes mellitus) Surgical History History of pancreatectomy History of surgery on left wrist Hx of umbilical hernia repair H/O Spinal surgery History of elbow surgery (09/2014) H/O vasectomy Family History Father Diabetes HTN (hypertension) Hyperlipemia Alcohol abuse Substance use disorder Mother Anxiety Depression Diabetes Mental health disorder Brother Kidney failure Mental health disorder Maternal Grandmother Stomach cancer Social History Household Members: Spouse and Children Housing: House Alcohol intake: never Patient Tobacco Use Status: Never used Tobacco e-Cigarette/Vaping Use: Never Used service: No Current occupational status: disabled Cognitive needs: No Hearing needs: No Vision needs: Yes Assessment & Plan Assessment & Plan (1) Erectile dysfunction associated with type 2 diabetes mellitus: Code(s): E11.69 - Type 2 diabetes mellitus with other specified complication; N52.1 - Erectile dysfunction due to diseases classified elsewhere Plan: Reviewed insulin pump basics today with Patient. Explained pros and cons of insulin pumps. Showed pt various pumps, infusion sets, and cgms currently available. Reviewed need to wear pump 24/7 and need to change infusion set every 3 days. Also stressed importance of frequent BG checks, 4x daily minimum or use pump that is integrated with CGM.? TDD:42 units Patient demonstrated motivation for continued insulin pump education and understands the need to complete education prior to starting insulin pump for best outcome. Patient is in process of being approved for iLet Patient will have fasting glucose and C-peptide drawn. Contact clinic when lab is drawn so labs can be faxed to [employer] Patient will contact endocrine clinic when he receives insulin pump for pump training appointment Portions of this note were created using voice recognition software, please excuse any words or phrases that may have been misinterpreted. Coding Level of Care Code Est Pt Level 1 (61610) Diagnoses Erectile dysfunction associated with type 2 diabetes mellitus E11.69; N52.1
== END 2024-07-20 08:41 | disposition home or self-care (01) ==
PROVIDERS: PCP Internal Medicine; Visit Provider Registered Nurse Diabetes Educator
DX: E11.69 Type 2 diabetes mellitus with other specified complication (principal); N52.1 Erectile dysfunction due to diseases classified elsewhere

== ENCOUNTER → 2024-07-20 07:54 | Outpatient (BNVA) | payer MEDICARE, MEDICAID, SELFPAY | PROVIDERS: PCP Internal Medicine; Visit Provider Registered Nurse Diabetes Educator | DX: E11.69 Type 2 diabetes mellitus with other specified complication (principal); N52.1 Erectile dysfunction due to diseases classified elsewhere | CPT/HCPCS: 99211 ==

== ENCOUNTER 2024-08-16 06:11 | Outpatient (REF) | payer MEDICARE, MEDICAID, SELFPAY ==
[2024-08-16 08:18] LABS: Alanine Aminotransferase 40 U/L (0-40); Albumin Level 4.6 g/dL (3.5-5.0); Alkaline Phosphatase 110 U/L (39-117); Anion Gap 13 (12-20); Aspartate Amino Transferase 30 U/L (5-37); Bilirubin Total 0.4 mg/dL (0.0-1.0); Blood Urea Nitrogen 7 mg/dL (9-16); Calcium 9.3 mg/dL (8.4-10.2); Carbon Dioxide 29 mmol/L (22-29); Chloride 101 mmol/L (96-108); Cholesterol 144 mg/dL (<200); Estimated Glomerular Filt Rate > 60; Glucose Fasting 127 mg/dL (60-99); HDL Cholesterol 66 mg/dL (>40); LDL Cholesterol Calculated 66 mg/dL (<100); Potassium 3.9 mmol/L (3.3-5.1); Sodium 139 mmol/L (135-145); Total Protein 7.5 g/dL (6.5-8.0); Triglycerides 62 mg/dL (<150)
[2024-08-16 08:25] LABS: Creatinine Urine 50.38 mg/dL; Microalbum/Creatinine Ratio Ur 101.2 ug/mg cr (<30)
[2024-08-16 08:38] LABS: Thyroid Stimulating Hormone 2.13 uIU/mL (0.32-4.0)
[2024-08-18 02:54] LABS: C Peptide 0.18 ng/mL (0.80-3.85)
[2024-08-21 17:53] LABS: Testosterone, Total 696 ng/dL (250-1100)
== END 2024-08-16 06:12 | disposition home or self-care (01) ==
LOC: HO.LAB 06:11
PROVIDERS: PCP Internal Medicine; Visit Provider Nurse Practitioner Adult Health
DX: E11.69 Type 2 diabetes mellitus with other specified complication (principal); N52.1 Erectile dysfunction due to diseases classified elsewhere; E10.9 Type 1 diabetes mellitus without complications; E78.5 Hyperlipidemia, unspecified
CPT/HCPCS: 36415; 80053; 80061; 82043; 82570; 84402; 84403; 84443; 84681

== ENCOUNTER 2024-11-29 10:32 | Outpatient (AMB) | payer MEDICARE, MEDICAID, SELFPAY ==
--- NOTE | 2024-11-29 07:20 | A.OFFVIS_ITS ---
Vital Signs 11/29/24 10:35 Height 5 ft 5 in Weight 155 lb 3.287 oz BMI 25.8 BP 148/80 H Blood Pressure Location Rt brachial Position Sitting Pulse 120 H Pulse Source Pulse Oximeter Pulse Oximetry (%) 98 Oxygen Delivery Method Room Air Intake Visit Reasons: DM Intake Note: Patient present today for Type 2 Diabetes Mellitus Last Diabetic eye exam: 01/2024 Last Podiatry Visit: Doesn't have one Random Glucose: 233 mg/dl HgA1C: 8.7% Lead Ios Developer Required: No Accompanied by: Self / Same As Patient Allergies barley [Barley] Allergy (Severe, Verified 03/30/24 08:34) THROAT SWELLING fish oil [Fish Oil] Allergy (Mild, Verified 03/30/24 08:34) ITCHING fentanyl Allergy (Unknown, Verified 03/30/24 08:34) disorientation gabapentin Adverse Reaction (Unknown, Verified 03/30/24 08:34) mood changes made him angry HPI Comments Details: 44 YO M with 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 He was l ast seen 07/05/24 with an A1C of 8%, He was diagnosed with hypertriglyceridemia in his youth and did have episodes of pancreatitis. Had another episode of pancreatitis with ARDS and prolonged ICU course in 2016. 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 He is currently managed as a T1DM. 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 Was unable to accurately count carbs and thus has been using just a short acting sliding scale with meals. Most recent A1C: 11/29/24: 07/05/24 8%, 03/30/24 7.7%, 05/14/23 7.2%, 01/04/24 8.1% He was formerly followed by Dr. Ward at [facility]. He has started pump training with goal of an islet pump. Cpeptide 0.18 glucose 127 on 08/16/24. Current regimen Lantus 25-34 units QHS Humalog sliding scale is: 150-199: 6 U 200-249: 8 U 250 - 299:10 U 300 - 349+: 12 U At times he takes Humalog just twice daily and does not cover one of his meals if he is more active than usual. He does try to exercise on a regular basis but is limited by chronic pain. If he is running high, he may take an extra dose of insulin with meals. He generally follows the above scale but does vary somewhat. He is adjusting lantus to prevent lows Dexcom average 256 14 day continuous glucose monitor report reviewed from 3 weeks ago Glucose Managment indicator [9.4 ] % TIme in ranges: Fifty % very high (above 250) 33 % high ?(181-250) 17 % in range ?(70-180] 0 % low (69-55) 0 % ?very low (below 54) 29.3 coefficeint of variance desired less than 36% Interpretation [ readings running high overnight and coming down to target range for lunch then progressively increasing throughout the day] Has hypoglycemia awareness. Treats according to the rule of 15's. Had one low at 6:30am Reports no retinopathy: Has eyes checked yearly, last eye exam one year ago he will schedule Has neuropathy, somem nubmness and tingling some which he attriures to disc disease does not see podiatry. No nephropathy. UAC 69 05/14/2023. Is on Lisinopril 2.5 mg PO daily. No history of HLD, LDL 52 05/14/2023, uses Pravastatin 10 mg PO every other day. Is on Gemfibrozil No history of CAD. Has had Diabetes Education. Diet/Carb counting: Has issues with carb counting as he had some brain damage after his ICU stay and has difficulty with math, but has been working on this. He is now meeting with CDE for pre pump education for an Ilet pump. Denies ever having DKA. Never had severe hypoglycemia. Currently eats 6 times a day and is on pancreatic enzyme [facility] Medical History Necrotizing pancreatitis Lipid disorder Pancreatitis GERD (gastroesophageal reflux disease) Vitamin D deficiency HLD (hyperlipidemia) HTN (hypertension) T1DM (type 1 diabetes mellitus) Surgical History History of pancreatectomy History of surgery on left wrist Hx of umbilical hernia repair H/O Spinal surgery History of elbow surgery (09/2014) H/O vasectomy Family History Father Diabetes HTN (hypertension) Hyperlipemia Alcohol abuse Substance use disorder Mother Anxiety Depression Diabetes Mental health disorder Brother Kidney failure Mental health disorder Maternal Grandmother Stomach cancer Social History Household Members: Spouse and Children Housing: House Alcohol intake: never Patient Tobacco Use Status: Never used Tobacco e-Cigarette/Vaping Use: Never Used service: No Current occupational status: disabled Cognitive needs: No Hearing needs: No Vision needs: Yes Physical Exam Vital Signs: Last Vital Signs Pulse 120 H 11/29/24 10:35 BP 148/80 H 11/29/24 10:35 Pulse Ox 98 11/29/24 10:35 Oxygen Delivery Method Room Air 11/29/24 10:35 BMI result Body Mass Index 25.8 Const Other: Absence of Cushingoid features. Absence of acromegalic features. Neck exam reveals nl size thyroid about 15 gms. No thyroid nodules palpable. No carotid bruits present. Lungs CTA. Heart S1 S2, Reg R/R. No M/R G. Skin exam reveals ab sence of vitiligo or acanthosis nigricans. No edema Visual exam of foot performed. No ulcerations or open lesions. No inter digit maceration or fissuring. No onychomycosis, no callouses. Sensation intact to monofilament exam. Vibratory sensation is normal with 128 Hz tuning fork. Office Procedures Glucose Monitoring Details Details: See [facility] 11233 - Glucose monitoring, continuous-physician I&R Procedure code (CPT) selection complete Results AMB Hemoglobin A1c AMB Hemoglobin A1c 8.7 % Last Edit by ZURI Conn on 11/29/24 11:03 Results Reviewed Results Reviewed: Laboratory Last Values Glucose (Clinic) 233 mg/dL (60-115) H 11/29/24 10:43 Assessment & Plan Assessment & Plan (1) T1DM (type 1 diabetes mellitus): Code(s): E10.9 - Type 1 diabetes mellitus without complications Category: Medical Qualifiers: Diabetes mellitus complication status: with circulatory complication Plan: 44-year-old with pancreatic diabetes and neuropathy with recent A1c of on 11/29/2024. He will meet with CDE to train on pump. Patient was reminded that he needed to have a functioned sensor at all times or test his glucose every 4 hours in order for the pump to function. We also revi ewed need to test for ketones for glucose over 250 and trouble shoot pump and revert to back up method when needed. Patient was able to articulate plan of action for glucose over 250. The patient had an opportunity to ask questions regarding treatment plan. The patient expressed understanding and agreement with the above treatment plan. The patient is aware they should contact our office by phone for worsening glucose readings or for any low blood sugars which may warrant a change in diabetes medication. Compliance is encouraged with medications and any followup testing/consults which may have been ordered. Orders: Orders AMB Glucose Monitoring Today E10.9 - Type 1 diabetes mellitus without complications AMB Hemoglobin A1c Today E10.9 - Type 1 diabetes mellitus without complications, Z13.9 - Encounter for screening, unspecified Patient Instructions: The patient was counseled to achieve a target A1C of 7% (154 avg). Fasting blood sugars should be 90-130 in the morning and less than 180 two hours after meals. Reviewed the relationship between poor diabetic control and the development of complications. Take 15 carb carbohydrate grams to treat a low sugar (3-4 glucose tablets, half a glass of juice or 15 carbohydrate grams of soft candy such as gummie snacks). Recheck your sugar in 15 minutes and re-treat again with 15 carbohydrate grams if low or still with symptoms. Do not drive a car or operate machinery if you do not know what your blood sugar is, if it is low or in excess of 300. Check your feet daily looking for any signs of infection, drainage, redness, ulceration and seek medical attention if this occurs. Break in shoes gradually and do not wear open-toed shoes or walk stocking footed or barefooted. Coding Level of Care Code Est Pt Level 4 (84412) Complex EM visit Add On G2211 Diagnoses T1DM (type 1 diabetes mellitus) E10.9 Diabetes mellitus complication status: with circulatory complication CPT Codes Details - CPT: 41263 - Glucose monitoring, continuous-physician I&R ([id number]) Time Spent (min) 30 Comment face to face, lab review, documentation exam of patient
[2024-11-29 10:35] VITALS: BP 148/80; PULSE 120; O2SAT 98; BMI 25.8
[2024-11-29 10:47] LABS: Glucose, Whole Blood 233 mg/dL (60-115)
--- OUTSIDE RECORDS SUMMARY | 2024-11-29 11:30 | XMS_ITS | Clinical Summary ---
Author Organization [facility] [address] [facility] Address [address] [place] [address] Phone Care Team Providers Care Back Seam Stitcher Name Role Phone Keshawn Tillman MD Primary Care Provider [phone] Allergies Active Allergy Reactions Criticality Noted Date Comments Barley Anaphylaxis High 12/10/2017 Fentanyl 11/24/2024 Lisinopril 11/29/2024 Gabapentin 11/24/2024 Medications tadalafiL (CIALIS) 10 mg tablet Take 1 tablet (10 mg total) by mouth 1 (one) time each day. 09/14/20 24 Active pravastatin (PRAVACHOL) 10 mg tablet Take 1 tablet (10 mg total) by mouth every other day. 08/26/20 24 Active OxyCONTIN 20 mg 12 hr abuse-deterrent tablet Take 1 tablet (20 mg total) by mouth 2 (two) times a day. Active oxyCODONE (ROXICODONE) 20 mg immediate release tablet TAKE 1/2 TO 1 TABLET EVERY 4 TO 6 HOURS NEEDED FOR SEVERE PAIN 11/18/19 25 Active multivitamin (multivitamin-ir on-minerals) tablet Take 1 tablet by mouth daily. Active insulin lispro (HumaLOG KwikPen) 100 unit/mL injection pen USE 6 - 12 UNITS DAILY SUBCUTANEOUSLY WITH MEALS DIRECTED MAILY DAILY DOSE 36 UNITS Active Lantus Solostar U-100 Insulin 100 unit/mL (3 mL) injection pen INJECT UP TO 34 UNITS UNDER THE SKIN EVERY DAY 06/22/20 24 Active Gvoke HypoPen 2-Pack 0.5 mg/0.1 mL auto-injector 01/06/20 24 Active gemfibroziL (LOPID) 600 mg tablet Take 1 tablet (600 mg total) by mouth 2 (two) times a day. Active amphetamine-dext roamphetamine XR (ADDERALL XR) 20 mg 24 hr capsule Take 1 capsule (20 mg total) by mouth 1 (one) time each day in the morning. Max Daily Amount: 20 mg 11/15/19 25 Active carisoprodoL (SOMA) 350 mg tablet Take 1 tablet (350 mg total) by mouth 2 times daily as needed. Active Dexcom G6 Transmitter device See administration instructions. 06/28/20 24 Active omeprazole (PriLOSEC) [address] capsuleIndicatio ns:Gastroesophag eal reflux disease without esophagitis Take 1 capsule (20 mg total) by mouth 1 (one) time each day. Do not crush or chew. 90 each 3 11/29/19 25 026 Active pancrelipase, Rsd-Skxu-Ejtj, (Creon) 24,000-76,000 -120,000 unit capsuleIndicatio ns:Pancreatic insufficiency Take 1 capsule (24,000 Units total) by mouth 4 (four) times a day. 360 each 3 11/29/19 25 026 Active omeprazole (PriLOSEC) [address] capsuleIndicatio ns:Gastroesophag eal reflux disease without esophagitis Take 1 capsule (20 mg total) by mouth 1 (one) time each day. Do not crush or chew. 30 each 11 09/21/20 24 025 Discontin ued(Reord er) pancrelipase, Zzm-Rdvg-Hxqw, (Creon) 24,000-76,000 -120,000 unit capsuleIndicatio ns:Pancreatic insufficiency Take 1 capsule (24,000 Units total) by mouth 4 (four) times a day. 120 each 1 10/24/19 25 025 Discontin ued(Reord er) Encounters Date Type Department Care Team Description 11/29/2024 8:00 AM EST Office Visit Gastroenterology - [address] [phone] Pati Engle MD Gastroesophageal reflux disease without esophagitis; Pancreatic insufficiency 10/24/2024 Telephone Gastroenterology - [address] [place] [phone] Pati Engle MD 09/21/2024 Telephone Gastroenterology - [address] [place] [address] Lindy Florentino MA from Last 3 Months Surgical History Surgery Date Site/Laterality Comments ESOPHAGOGASTRODUODENOSCOPY 10/12/2007 - 10/11/2008 Dr. Hensley- esophagitis and stricture UMBILICAL HERNIA REPAIR ESOPHAGOGASTRODUODENOSCOPY 12/04/2009 Esophageal ring, mild reflux on bx, nl gastric and duodenal bx CHOLECYSTECTOMY 10/12/2017 - 10/11/2018 [facility] 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 Diabetes mellitus associated with pancreatic disease (CMS/HCC) Family History Medical History Relation Name Comments Stomach cancer Maternal Grandmother Relation Name Status Comments Maternal Grandmother Social History Tobacco Use Types Packs/Day Years Used Date Smoking Tobacco: Never Tobacco Cessation:Counseling Given: Not Answered Alcohol Use Standard Drinks/Week Comments Not Currently 0 (1 standard drink = 0.6 oz pur e alcohol) Sex and Gender Information Value Date Recorded Sex Assigned at Not on file Legal Sex Male 10:56 PM EST Gender Identity Not on file Sexual Orientation Not on file Obstetrics History Last Filed Vital Signs Vital Sign Reading Time Taken Comments Blood Pressure - - Pulse - - Temperature - - Respiratory Rate - - Oxygen Saturation - - Inhaled Oxygen Concentration - - Weight 70.3 kg (155 lb) 11/29/2024 7:59 AM EST Height 165.1 cm (5' 5 ) 11/29/2024 7:59 AM EST Body Mass Index 25.79 11/29/2024 7:59 AM EST Plan of Treatment Health Maintenance Due Date Last Done Comments Hepatitis B Vaccines (1 of 3 - 19+ 3-dose series) 02/22/2000 Depression Screening 09/14/2022 HIV Screening 09/14/2022 Hepatitis C Screening 09/14/2022 Medicare Annual Wellness Visit 09/14/2022 Social Influencers of Health Screening 09/14/2022 Cholesterol Screening (Lipid Panel) 11/17/2022 11/17/2017 COVID-19 Vaccine ( season) 2024 09/28/2021, 01/30/2021, 01/01/2021 Influenza Vaccine (#1) 2024 , 08/16/2021, 06/14/2019, Additional history exists DTaP,Tdap,and Td Vaccines (2 - Td or Tdap) 05/14/2033 05/14/2023 HIB Vaccines Aged Out No longer eligi ble based on patient's age to complete this topic HPV Vaccines Aged Out No longer eligi ble based on patient's age to complete this topic Hepatitis A Vaccines Aged Out No long er eligible based on patient's age to complete this topic IPV Vaccines Aged Out No longer eligi ble based on patient's age to complete this topic MMR Vaccines Aged Out No longer eligi ble based on patient's age to complete this topic Meningococcal ACWY Vaccine Aged Out N o longer eligible based on patient's age to complete this topic Meningococcal B Vacine Aged Out No lo nger eligible based on patient's age to complete this topic Pneumococcal Vaccine: Pediatrics (0 to 5 Years) and At-Risk Patients (6 to 64 Years) Aged Out No longer eligible based on patient's age to complete this topic RSV Immunization Patients Under 20 months Aged Out No longer eligible based on patient's age to complete this topic Varicella Vaccines Aged Out No longer eligible based on patient's age to complete this topic Insurance BLUE CROSS - [place] MEDIC[place] Care Teams Back Seam Stitcher Relationship Specialty Start Date End Date Keshawn Tillman MD [address] [place] [phone] PCP - General Internal Medicine 09/21/24
--- OUTSIDE RECORDS SUMMARY | 2024-11-29 11:30 | XMS_ITS | Encounter Summary ---
Author Organization [facility] Address [address] [place] [address] Care Team Providers Care Corner Former Name Role Phone Keshawn Tillman MD Primary Care Provider [phone] Reason for Visit * Reason Comments Chronic pancreatitis and pancreatic insu fficiency Encounter Details Date Type Department Care Team (Latest Contact Info) Description 11/29/2024 8:00 AM EST Office Visit Gastroenterology - [address] [phone] Pati Engle MD [address] [place] [phone] Gastroesophageal reflux disease without esophagitis; Pancreatic insufficiency Social History Tobacco Use Types Packs/Day Years [...] on file documented as of this encounter Last Filed Vital Signs Vital Sign Reading Time Taken Comments Blood Pressure - - Pulse - - Temperature - - Respiratory Rate - - Oxygen Saturation - - Inhaled Oxygen Concentration - - Weight 70.3 kg (155 lb) 11/29/2024 7:59 AM EST Height 165.1 cm (5' 5 ) 11/29/2024 7:59 AM EST Body Mass Index 25.79 11/29/2024 7:59 AM EST documented in this encounter Ordered Prescriptions Prescription Sig Dispense Quantity Refills Last Filled Start Date End Date pancrelipase, Ovc-Ttpa-Tpjg, (Creon) 24,000-76,000 -120,000 unit capsuleIndications: Pancreatic insufficiency Take 1 capsule (24,000 Units total) by mouth 4 (four) times a day. 360 each 3 11/29/2024 6 omeprazole (PriLOSEC) [address] capsuleIndications: Gastroesophageal reflux disease without esophagitis Take 1 capsule (20 mg total) by mouth 1 (one) time each day. Do not crush or chew. 90 each 3 11/29/2024 6 documented in this encounter Progress Notes * Pati Engle MD - 11/29/2024 8:00 AM EST CHIEF COMPLAINT: Chronic pancreatitis and pancreatic insufficiency HPI: Lauri Wick is a 44 y.o. old male who was originally referred to us by Keshawn Tillman MD now presents to the gastroenterology department today for a follow up of pancreatic insufficiency/chronic pancreatitis. Mr. Wick is a 44-year-old gentleman who has a history of a recurrent severe pancreatitis secondary to hypertriglyceridemia who had significant pancreatic necrosis requiring open pancreatic debridement with a significant portion of the pancreas removed along with a cholecystectomy by Dr. Shayne Monique [facility] in December 2017. Since that time he has been insulin dependent and has required pancreatic enzyme supplementation. He was last seen in the office in July 2023 and at that time he was stable on his regimen of omeprazole, Creon, and gemfibrozil and insulin. He returns today for his routine follow-up and medication refill. Is feeling well today and has no particular GI complaints. He is awaiting final authorization for a new insulin pump that has new technology that can easily titrate his insulin needs. ROS: GENERAL: No malaise, significant weight loss or fever HEENT: No changes in hearing or vision, nose bleeds or swallowing problems NECK: No lumps, goiter, pain or significant neck swelling RESPIRATORY: No cough, wheezing or shortness of breath CARDIOVASCULAR: No chest pain, leg swelling or palpitations GI: As per HPI MUSCULOSKELETAL: No joint pain or swelling, back pain, or muscle pain. SKIN: No lesions, rash or itching The remainder of the review of systems is reviewed and negative. 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 Monique [facility] [place] [facility]- open pancreatic debridement with reagan ESOPHAGOGASTRODUODENOSCOPY 2007 Dr. Hensley- esophagitis and stricture ESOPHAGOGASTRODUODENOSCOPY 12/04/2009 Esophageal ring, mild reflux on bx, nl gastric and duodenal bx UMBILICAL HERNIA REPAIR SOCIAL HISTORY: Social History Tobacco Use Smoking status: Never Smokeless tobacco: Not on file Substance Use Topics Alcohol use: Not Currently FAMILY HISTORY: Family History Problem Relation Name Age of Onset Stomach cancer Maternal Grandmother ACTIVE MEDICATIONS: Current Outpatient Medications Medication Sig Dispense Refill amphetamine-dextroamphetamine XR (ADDERALL XR) 20 mg 24 hr capsule Take 1 capsule (20 mg total) by mouth 1 (one) time each day in the morning. Max Daily Amount: 20 mg carisoprodoL (SOMA) 350 mg tablet Take 1 tablet (350 mg total) by mouth 2 times daily as needed. Novadiol G6 Transmitter device See administration instructions. gemfibroziL (LOPID) 600 mg tablet Take 1 tablet (600 mg total) by mouth 2 (two) times a day. Gvoke HypoPen 2-Pack 0.5 mg/0.1 mL auto-injector insulin lispro (HumaLOG KwikPen) 100 unit/mL injection pen USE 6 - 12 UNITS DAILY SUBCUTANEOUSLY WITH MEALS DIRECTED MAILY DAILY DOSE 36 UNITS Lantus Solostar U-100 Insulin 100 unit/mL (3 mL) injection pen INJECT UP TO 34 UNITS UNDER THE SKINEVERY DAY multivitamin (gpgcbixyztdb-iyey-kygolmfm) tablet Take 1 tablet by mouth daily. omeprazole (PriLOSEC) [address] capsule Take 1 capsule (20 mg total) by mouth 1 (one) time each day.Do not crush or chew. 90 each 3 oxyCODONE (ROXICODONE) 20 mg immediate release tablet TAKE 1/2 TO 1 TABLET EVERY 4 TO 6 HOURS NEEDED FOR SEVERE PAIN OxyCONTIN 20 mg 12 hr abuse-deterrent tablet Take 1 tablet (20 mg total) by mouth 2 (two) times a day. pancrelipase, Xlg-Vwes-Huij, (Creon) 24,000-76,000 -120,000 unit capsule Take 1 capsule (24,000 Units total) by mouth 4 (four) times a day. 360 each 3 pravastatin (PRAVACHOL) 10 mg tablet Take 1 tablet (10 mg total) by mouth every other day. tadalafiL (CIALIS) 10 mg tablet Take 1 tablet (10 mg total) by mouth 1 (one) time each day. No current facility-administered medications for this visit. ALLERGIES: Allergies Allergen Reactions Barley Anaphylaxis Fentanyl Lisinopril Neurontin [Gabapentin] PHYSICAL EXAM: Visit Vitals Ht 1.651 m (65 ) Wt 70.3 kg (155 lb) BMI 25.79 kg/m?? Smoking Status Never BSA 1.77 m?? APPEARANCE: Alert and in no acute distress EYES: PERRLA, conjunctiva and sclera normal. MOUTH/THROAT: no erythema or exudates NECK: Neck supple, no adenopathy HEART: RRR with normal S1 and S2, no murmurs appreciated LUNG: clear to auscultation LYMPH NODES: grossly normal ABDOMEN: soft non tender, no ascites, guarding, or rebound, no organomegaly. RECTAL: Exam deferred. EXTREMITIES: Extremities warm and well perfused SKIN: Skin color, texture, turgor normal. NEURO: Awake, alert and oriented x 3 Assessment & Plan 1. Chronic pancreatitis with pancreatic insufficiency. His weight has remained stable despite a recent bout of influenza. He has not required any hospitalor emergency room visits recently. Prescriptions for Creon and omeprazole have been renewed, with a90-day supply for both medications. Do not have recent labs available to me as he gets them done [facility]. I have asked to obtain those records for my review. 2. Diabetes mellitus. He is managing her diabetes with the help of a Dexcom monitor and is awaiting insurance approval for a bionic pancreas device. He reports difficulty managing his blood sugar levels, especially after a recent flu episode. Follow-up The patient will follow up in 1 year. Assessment & Plan Gastroesophageal reflux disease without esophagitis Patient was a history of severe reflux in the past who also needs omeprazole for improved Creon absorption. A years worth of refills were given today. He denies any recent flare of reflux symptoms ordysphagia. Orders: omeprazole (PriLOSEC) [address] capsule; Take 1 capsule (20 mg total) by mouth 1 (one) time each day. Do not crush or chew. Pancreatic insufficiency Patient's weight has been stable and he is he is doing well on his current Creon dose. He denies significant diarrhea or fatty stools. Orders: pancrelipase, Jib-Qjxo-Yqpf, (Creon) 24,000-76,000 -120,000 unit capsule; Take 1 capsule (24,000 Units total) by mouth 4 (four) times a day. Follow up in about 1 year (around 11/29/2025) for Next scheduled follow-up. Board Certified, Gastroenterology Gastroenterology and Hepatology Practice [facility] [email or web address] [phone] [place] [phone] [email or web address] Pati Engle MD documented in this encounter Plan of Treatment Not on file documented as of this encounter Visit Diagnoses Diagnosis Gastroesophageal reflux disease without esophagitis Esophageal reflux Pancreatic insufficiency Other specified disease of pancreas documented in this encounter Discontinued Medications Medication Sig Discontinue Reason Start Date End Da te omeprazole (PriLOSEC) [address] capsuleIndications:Gastro esophageal reflux disease without esophagitis Take 1 capsule (20 mg total) by mouth 1 (one) time each day. Do not crush or chew. Reorder 09/21/2024 11/29/2024 pancrelipase, Cwb-Tnah-Blfa, (Creon) 24,000-76,000 -120,000 unit capsuleIndications:Pancre atic insufficiency Take 1 capsule (24,000 Units total) by mouth 4 (four) times a day. Reorder 10/24/2024 11/29/2024 documented as of this encounter Historical Medications * This list may reflect changes made after this encounter. Dexcom G6 Transmitter device See administration instructions. 06/28/2024 carisoprodoL (SOMA) 350 mg tablet Take 1 tablet (350 mg total) by mouth 2 times daily as needed. amphetamine-dext roamphetamine XR (ADDERALL XR) 20 mg 24 hr capsule Take 1 capsule (20 mg total) by mouth 1 (one) time each day in the morning. Max Daily Amount: 20 mg 11/15/2024 gemfibroziL (LOPID) 600 mg tablet Take 1 tablet (600 mg total) by mouth 2 (two) times a day. Gvoke HypoPen 2-Pack 0.5 mg/0.1 mL auto-injector 01/06/2024 Lantus Solostar U-100 Insulin 100 unit/mL (3 mL) injection pen INJECT UP TO 34 UNITS UNDER THE SKIN EVERY DAY 06/22/2024 insulin lispro (HumaLOG KwikPen) 100 unit/mL injection pen USE 6 - 12 UNITS DAILY SUBCUTANEOUSLY WITH MEALS DIRECTED MAILY DAILY DOSE 36 UNITS multivitamin (multivitamin-ir on-minerals) tablet Take 1 tablet by mouth daily. oxyCODONE (ROXICODONE) 20 mg immediate release tablet TAKE 1/2 TO 1 TABLET EVERY 4 TO 6 HOURS NEEDED FOR SEVERE PAIN 11/18/2024 OxyCONTIN 20 mg 12 hr abuse-deterrent tablet Take 1 tablet (20 mg total) by mouth 2 (two) times a day. pravastatin (PRAVACHOL) 10 mg tablet Take 1 tablet (10 mg total) by mouth every other day. 08/26/2024 tadalafiL (CIALIS) 10 mg tablet Take 1 tablet (10 mg total) by mouth 1 (one) time each day. 09/14/2024 added in this encounter Care Teams Corner Former Relationship Specialty Start Date End Date Keshawn Tillman MD [address] [place] [phone] PCP - General Internal Medicine 09/21/24 documented as of this encounter
--- OUTSIDE RECORDS SUMMARY | 2024-11-29 11:30 | XMS_ITS | Clinical Summary ---
Author Organization [facility] Address [address] [place] [address] Care Team Providers Care Picture Painter Name Role Phone Unavailable Primary Care Provider Unavailabl e Social History Tobacco Use Types Packs/Day Years Used Date Smoking Tobacco: Never Assessed Sex and Gender Information Value Date Recorded Sex Assigned at Not on file Gender Identity Not on file Sexual Orientation Not on file Plan of Treatment Health Maintenance Due Date Last Done Comments Hepatitis C Virus Screening 1981 HIV Screening 1994 DTaP/Tdap/Td Vaccines (1 - Tdap) 02/22/2000 Hepatitis B Vaccines (1 of 3 - 19+ 3-dose series) 02/22/2000 COVID-19 Vaccine (2023-2 5 season) 2024 HPV Vaccines Aged Out No longer eligi ble based on patient's age to complete this topic Pneumococcal Vaccine: Pediat drake (0-5 Years) and At-Risk Patients (6 to 49 Years) Aged Out No longer eligible b ased on patient's age to complete this topic
== END 2024-11-29 11:07 | disposition home or self-care (01) ==
PROVIDERS: PCP Internal Medicine; Visit Provider Nurse Practitioner Adult Health
DX: Z13.9 Encounter for screening, unspecified (principal); E10.9 Type 1 diabetes mellitus without complications
CPT/HCPCS: 95251; 99214; G2211

== ENCOUNTER → 2024-11-29 10:32 | Outpatient (BNVA) | payer MEDICARE, MEDICAID, SELFPAY | PROVIDERS: PCP Internal Medicine; Visit Provider Nurse Practitioner Adult Health | DX: E10.9 Type 1 diabetes mellitus without complications (principal); Z79.4 Long term (current) use of insulin | CPT/HCPCS: 82947; 83036; 99212 ==

== ENCOUNTER 2024-11-30 09:50 | Outpatient (AMB) | payer MEDICARE, MEDICAID, SELFPAY ==
--- OUTSIDE RECORDS SUMMARY | 2024-11-30 10:13 | XMS_ITS | Clinical Summary ---
Author Organization [facility] [address] [facility] Address [address] [place] [address] Phone Care Team Providers Care Reception Specialist Name Role Phone Keshawn Tillman MD Primary Care Provider [phone] Allergies Active Allergy Reactions Criticality Noted Date [...] each 3 11/29/19 25 026 Active pancrelipase, Fcd-Jtyv-Pmbc, (Creon) 24,000-76,000 -120,000 unit capsuleIndicatio ns:Pancreatic insufficiency [...] 09/21/20 24 025 Discontin ued(Reord er) pancrelipase, Ykf-Pdxx-Kyvh, (Creon) 24,000-76,000 -120,000 unit capsuleIndicatio ns:Pancreatic insufficiency Take 1 capsule (24,000 Units total) by mouth 4 (four) times a day. 120 each 1 10/24/19 25 025 Discontin ued(Reord er) Encounters Date Type Department Care Team Description 11/29/2024 8:00 AM EST Office Visit Gastroenterology - [address] [phone] Pati Engle MD Gastroesophageal reflux disease without esophagitis; Pancreatic insufficiency 10/24/2024 Telephone Gastroenterology - [address] [place] [phone] Pati Engle MD 09/21/2024 Telephone Gastroenterology - [address] [place] [address] Lindy Florentino MA from Last 3 Months Surgical History Surgery Date Site/Laterality Comments ESOPHAGOGASTRODUODENOSCOPY 10/12/2007 - 10/11/2008 Dr. Hensley- esophagitis and stricture UMBILICAL HERNIA REPAIR ESOPHAGOGASTRODUODENOSCOPY 12/04/2009 Esophageal ring, mild reflux on bx, nl gastric and duodenal bx CHOLECYSTECTOMY 10/12/2017 - 10/11/2018 Dr. Monique [facility] [place]- open pancreatic debridement with reagan Medical History [...] MEDICARE ADVANTAGE [place] - [place] Care Teams Reception Specialist Relationship Specialty Start Date End Date Keshawn Tillman MD [address] [place] [phone] PCP - General Internal Medicine 09/21/24
--- OUTSIDE RECORDS SUMMARY | 2024-11-30 10:13 | XMS_ITS | Encounter Summary ---
Author Organization [facility] Address [address] [place] [address] Care Team Providers Care Habitat Biologist Name Role Phone Keshawn Tillman MD Primary Care Provider [phone] Reason for Visit * Reason Comments Chronic pancreatitis and pancreatic insu fficiency Encounter Details Date Type Department Care Team (Latest Contact Info) Description 11/29/2024 8:00 AM EST Office Visit Gastroenterology - [address] [phone] Pati Engle MD [address] [place] [phone] Gastroesophageal reflux disease without esophagitis; Pancreatic insufficiency [...] Last Filled Start Date End Date pancrelipase, Svq-Pych-Ihjt, (Creon) 24,000-76,000 -120,000 unit capsuleIndications: Pancreatic insufficiency [...] with a cholecystectomy by Dr. Shayne Monique [facility] in December 2017. Since that time he [...] Procedure Laterality Date CHOLECYSTECTOMY 2018 Dr. Monique [facility]- open pancreatic debridement with reagan ESOPHAGOGASTRODUODENOSCOPY 2007 [...] by mouth 2 times daily as needed. [employer] G6 Transmitter device See administration instructions. gemfibroziL [...] 34 UNITS UNDER THE SKINEVERY DAY multivitamin (lfyquejxwpog-ekmi-cgjrjwgl) tablet Take 1 tablet by mouth daily. [...] mouth 2 (two) times a day. pancrelipase, Cki-Kjce-Bqwg, (Creon) 24,000-76,000 -120,000 unit capsule Take 1 [...] to me as he gets them done [facility]. I have asked to obtain those [...] significant diarrhea or fatty stools. Orders: pancrelipase, Kir-Xpal-Haym, (Creon) 24,000-76,000 -120,000 unit capsule; Take 1 capsule (24,000 Units total) by mouth 4 (four) times a day. Follow up in about 1 year (around 11/29/2025) for Next scheduled follow-up. Board Certified, Gastroenterology Gastroenterology and Hepatology Practice [facility] [email or web address] [phone] [place] [phone] [email or web address] Pati Engle MD documented in this encounter [...] crush or chew. Reorder 09/21/2024 11/29/2024 pancrelipase, Axu-Yyjv-Ikub, (Creon) 24,000-76,000 -120,000 unit capsuleIndications:Pancre atic insufficiency [...] 09/14/2024 added in this encounter Care Teams Habitat Biologist Relationship Specialty Start Date End Date Keshawn Tillman MD [address] [place] [phone] PCP - General Internal Medicine 09/21/24 documented as of this encounter
--- OUTSIDE RECORDS SUMMARY | 2024-11-30 10:13 | XMS_ITS | Clinical Summary ---
Author Organization [facility] Address [address] [place] [address] Care Team Providers Care Contract Clerk Automobile Name Role Phone Unavailable Primary Care Provider [...]
--- NOTE | 2024-11-30 10:51 | MHC.AMDMED ---
Intake Intake Visit Reasons: iLet pump Hand Blocker Required: No Accompanied by: Self / Same As Patient Allergies barley [Barley] Allergy (Severe, Verified 03/30/24 08:34) THROAT SWELLING fish oil [Fish Oil] Allergy (Mild, Verified 03/30/24 08:34) ITCHING fentanyl Allergy (Unknown, Verified 03/30/24 08:34) disorientation gabapentin Adverse Reaction (Unknown, Verified 03/30/24 08:34) mood changes made him angry HPI Comprehensive Diabetes Asmnt Most Recent Diabetes Results: Microalb/Creat Ratio 101.2 ug/mg cr (<30) H 08/16/24 Cholesterol 144 mg/dL (<200) 08/16/24 HDL Cholesterol 66 mg/dL (>40) 08/16/24 Triglycerides 62 mg/dL (<150) 08/16/24 Creatinine 0.85 mg/dL (0.5-1.4) 08/16/24 Blood Urea Nitrogen 7 mg/dL (9-16) L 08/16/24 Sodium 139 mmol/L (135-145) 08/16/24 Potassium 3.9 mmol/L (3.3-5.1) 08/16/24 Chloride 101 mmol/L (96-108) 08/16/24 Carbon Dioxide 29 mmol/L (22-29) 08/16/24 Calcium 9.3 mg/dL (8.4-10.2) 08/16/24 AST 30 U/L (5-37) 08/16/24 ALT 40 U/L (0-40) 08/16/24 Total Protein 7.5 g/dL (6.5-8.0) 08/16/24 Albumin 4.6 g/dL (3.5-5.0) 08/16/24 [facility] Medical History Necrotizing pancreatitis Lipid disorder Pancreatitis GERD (gastroesophageal reflux disease) Vitamin D deficiency HLD (hyperlipidemia) HTN (hypertension) T1DM (type 1 diabetes mellitus) Surgical History History of pancreatectomy History of surgery on left wrist Hx of umbilical hernia repair H/O Spinal surgery History of elbow surgery (09/2014) H/O vasectomy Family History Father Diabetes HTN (hypertension) Hyperlipemia Alcohol abuse Substance use disorder Mother Anxiety Depression Diabetes Mental health disorder Brother Kidney failure Mental health disorder Maternal Grandmother Stomach cancer Social History Household Members: Spouse and Children Housing: House Alcohol intake: never Patient Tobacco Use Status: Never used Tobacco e-Cigarette/Vaping Use: Never Used service: No Current occupational status: disabled Cognitive needs: No Hearing needs: No Vision needs: Yes Assessment & Plan Assessment & Plan (1) T1DM (type 1 diabetes mellitus): Code(s): E10.9 - Type 1 diabetes mellitus without complications Qualifiers: Diabetes mellitus complication status: with circulatory complication Plan: Patient presents for pump training for iLet pump and CGM training today. The following topics were reviewed today: -Pump therapy basic concepts: Basal/bolus -Device settings: Bluetooth/mobile connection (if applicable), correct date and time, sound volume -CGM settings(if integrated system): CGM graft views and trend arrows, alerts and alarms, Start new sensor Patient instructed to only announce meals that have carbohydrates For the 1st 7 days: Eat meals that have usual amount of carbs for you in announce them as usual Wait at least 4 hours between eating meals with carbs and announcing again If you are eating between meals, low carb snacks are the best option. Announce meal right away when you start eating If you forget and is more than 30 minutes since started eating do not announce Avoid over treating lows, this can cause hyperglycemia, which will initiate pump to deliver correction bolus Always have extra supplies: CGM sensor Supply to refill your insulin cartridge and replace your infusion set Blood glucose and ketone testing supplies Extra insulin Treatment for low blood glucose Emergency contact information Ketone action plan Keep ines open on your phone, keep your ilet paired with the ines Always sink her data before appointments with your healthcare provider BG run mode: You will go into BG mode if not receiving CGM glucose readings You will be required to enter BG into pump every 4 hours after 72 hours insulin delivery will stop In the 1st week of pump therapy you will need to enter BG every hour after 48 hours without CGM in the 1st week insulin delivery will stop Insulin delivery settings Date, time and weight Instructed patient to only use room temperature insulin, how to load cartridge or fill pod, with insulin. Fill tubing and cannula (if applicable) Inserting infusion set or starting pod Troubleshooting after starting new pod or inserting new insulin set: Occlusion, adhesive tape sensitivity, redness Check BG 2 hours after site change Safety information: Importance of a backup plan, for manual injections, proper prescriptions and emergency supplies ketone strips, and rules for testing for ketones Patient was able to insert insulin set today without difficulty. Patient understands the basic concepts of pump therapy, how to give insulin for meals and snacks, how to troubleshoot for hyper and hypoglycemia. Patient [facility] with [facility] as instructed Patient will contact [facility] with questions or concerns, patient given IT number to support in any technical issues related to insulin pump Portions of this note were created using voice recognition software, please excuse any words or phrases that may have been misinterpreted. Coding Level of Care Code Est Pt Level 1 (85907) Diagnoses T1DM (type 1 diabetes mellitus) E10.9 Diabetes mellitus complication status: with circulatory complication
== END 2024-11-30 11:07 | disposition home or self-care (01) ==
PROVIDERS: PCP Internal Medicine; Visit Provider Registered Nurse Diabetes Educator
DX: E10.9 Type 1 diabetes mellitus without complications (principal)

== ENCOUNTER → 2024-11-30 09:50 | Outpatient (BNVA) | payer MEDICARE, MEDICAID, SELFPAY | PROVIDERS: PCP Internal Medicine; Visit Provider Registered Nurse Diabetes Educator | DX: E10.9 Type 1 diabetes mellitus without complications (principal); Z96.41 Presence of insulin pump (external) (internal); Z79.4 Long term (current) use of insulin | CPT/HCPCS: 99211 ==

== ENCOUNTER 2024-12-07 07:58 | Outpatient (AMB) | payer MEDICARE, MEDICAID, SELFPAY ==
--- OUTSIDE RECORDS SUMMARY | 2024-12-07 08:05 | XMS_ITS | Encounter Summary ---
Author Organization [facility] Address [address] [place] [address] Care Team Providers Care Aquarium Tank Attendant Name Role Phone Keshawn Tillman MD Primary Care Provider [phone] Reason for Visit * Reason Comments Chronic pancreatitis and pancreatic insu fficiency Encounter Details Date Type Department Care Team (Latest Contact Info) Description 11/29/2024 8:00 AM EST Office Visit Gastroenterology - [address] [phone] Pati Engle MD [address] [place] [id number] Gastroesophageal reflux disease without esophagitis; Pancreatic insufficiency [...] Last Filled Start Date End Date pancrelipase, Nqv-Xyny-Cehd, (Creon) 24,000-76,000 -120,000 unit capsuleIndications: Pancreatic insufficiency [...] with a cholecystectomy by Dr. Shayne Monique [facility] in December 2017. Since that time he [...] Procedure Laterality Date CHOLECYSTECTOMY 2018 Dr. Monique [facility] [place] pancreatic debridement with reagan ESOPHAGOGASTRODUODENOSCOPY [...] by mouth 2 times daily as needed. [employer] G6 Transmitter device See administration instructions. gemfibroziL [...] 34 UNITS UNDER THE SKINEVERY DAY multivitamin (wmfzfmnifzen-oobv-jeoncwne) tablet Take 1 tablet by mouth daily. [...] mouth 2 (two) times a day. pancrelipase, Ghn-Vnyc-Eyrs, (Creon) 24,000-76,000 -120,000 unit capsule Take 1 [...] to me as he gets them done [facility]. I have asked to obtain those [...] significant diarrhea or fatty stools. Orders: pancrelipase, Ldx-Kzoj-Mtkx, (Creon) 24,000-76,000 -120,000 unit capsule; Take 1 capsule (24,000 Units total) by mouth 4 (four) times a day. Follow up in about 1 year (around 11/29/2025) for Next scheduled follow-up. Board Certified, Gastroenterology Gastroenterology and Hepatology Practice [facility] [email or web address] [phone] [place] [id number] [email or web address] Pati Engle MD documented in this encounter [...] crush or chew. Reorder 09/21/2024 11/29/2024 pancrelipase, Bhs-Ufei-Uuin, (Creon) 24,000-76,000 -120,000 unit capsuleIndications:Pancre atic insufficiency [...] 09/14/2024 added in this encounter Care Teams Aquarium Tank Attendant Relationship Specialty Start Date End Date Keshawn Tillman MD [address] [place] [phone] PCP - General Internal Medicine 09/21/24 documented as of this encounter
--- OUTSIDE RECORDS SUMMARY | 2024-12-07 08:05 | XMS_ITS | Clinical Summary ---
Author Organization [facility] 299 [facility] Address [address] [place] [address] Phone Care Team Providers Care Yard Specialist Name Role Phone Keshawn Tillman MD Primary Care Provider Allergies Active Allergy Reactions Criticality Noted Date [...] each 3 11/29/19 25 026 Active pancrelipase, Crz-Cehc-Gpcg, (Creon) 24,000-76,000 -120,000 unit capsuleIndicatio ns:Pancreatic insufficiency [...] 09/21/20 24 025 Discontin ued(Reord er) pancrelipase, Iyl-Velw-Dnlt, (Creon) 24,000-76,000 -120,000 unit capsuleIndicatio ns:Pancreatic insufficiency Take 1 capsule (24,000 Units total) by mouth 4 (four) times a day. 120 each 1 10/24/19 25 025 Discontin ued(Reord er) Encounters Date Type Department Care Team Description 11/29/2024 8:00 AM EST Office Visit Gastroenterology - [address] [phone] Pati Engle MD Gastroesophageal reflux disease without esophagitis; Pancreatic insufficiency 10/24/2024 Telephone Gastroenterology - [address] [place] [phone] Pati Engle MD 09/21/2024 Telephone Gastroenterology - [address] [place] [address] Lindy Florentino MA from Last 3 Months Surgical History Surgery Date Site/Laterality Comments ESOPHAGOGASTRODUODENOSCOPY 10/12/2007 - 10/11/2008 Dr. Hensley- esophagitis and stricture UMBILICAL HERNIA REPAIR ESOPHAGOGASTRODUODENOSCOPY 12/04/2009 Esophageal ring, mild reflux on bx, nl gastric and duodenal bx CHOLECYSTECTOMY 10/12/2017 - 10/11/2018 Dr. oMnique [facility] [place]- open pancreatic debridement with reagan Medical History [...] MEDICARE ADVANTAGE [place]ICAID - [place] Care Teams Yard Specialist Relationship Specialty Start Date End Date Keshawn Tillman MD [address] [place] [phone] PCP - General Internal Medicine 09/21/24
--- OUTSIDE RECORDS SUMMARY | 2024-12-07 08:05 | XMS_ITS | Clinical Summary ---
Author Organization [facility] Address [address] [place] [address] Care Team Providers Care Antique Clocks Repairer Name Role Phone Unavailable Primary Care Provider [...]
--- NOTE | 2024-12-07 08:58 | MHC.AMDMED ---
Intake Intake Visit Reasons: DM Manager Of Data Required: No Accompanied by: Self / Same As Patient Allergies barley [Barley] Allergy (Severe, Verified 03/30/24 08:34) THROAT SWELLING fish oil [Fish Oil] Allergy (Mild, Verified 03/30/24 08:34) ITCHING fentanyl Allergy (Unknown, Verified 03/30/24 08:34) disorientation gabapentin Adverse Reaction (Unknown, Verified 03/30/24 08:34) mood changes made him angry HPI Comprehensive Diabetes Asmnt Most Recent Diabetes Results: Microalb/Creat Ratio 101.2 ug/mg cr (<30) H 08/16/24 Cholesterol 144 mg/dL (<200) 08/16/24 HDL Cholesterol 66 mg/dL (>40) 08/16/24 Triglycerides 62 mg/dL (<150) 08/16/24 Creatinine 0.85 mg/dL (0.5-1.4) 08/16/24 Blood Urea Nitrogen 7 mg/dL (9-16) L 08/16/24 Sodium 139 mmol/L (135-145) 08/16/24 Potassium 3.9 mmol/L (3.3-5.1) 08/16/24 Chloride 101 mmol/L (96-108) 08/16/24 Carbon Dioxide 29 mmol/L (22-29) 08/16/24 Calcium 9.3 mg/dL (8.4-10.2) 08/16/24 AST 30 U/L (5-37) 08/16/24 ALT 40 U/L (0-40) 08/16/24 Total Protein 7.5 g/dL (6.5-8.0) 08/16/24 Albumin 4.6 g/dL (3.5-5.0) 08/16/24 [facility] Medical History Necrotizing pancreatitis Lipid disorder Pancreatitis GERD (gastroesophageal reflux disease) Vitamin D deficiency HLD (hyperlipidemia) HTN (hypertension) T1DM (type 1 diabetes mellitus) Surgical History History of pancreatectomy History of surgery on left wrist Hx of umbilical hernia repair H/O Spinal surgery History of elbow surgery (09/2014) H/O vasectomy Family History Father Diabetes HTN (hypertension) Hyperlipemia Alcohol abuse Substance use disorder Mother Anxiety Depression Diabetes Mental health disorder Brother Kidney failure Mental health disorder Maternal Grandmother Stomach cancer Social History Household Members: Spouse and Children Housing: House Alcohol intake: never Patient Tobacco Use Status: Never used Tobacco e-Cigarette/Vaping Use: Never Used service: No Current occupational status: disabled Cognitive needs: No Hearing needs: No Vision needs: Yes Assessment & Plan Assessment & Plan (1) T1DM (type 1 diabetes mellitus): Code(s): E10.9 - Type 1 diabetes mellitus without complications Qualifiers: Diabetes mellitus complication status: with circulatory complication Plan: Patient presents for pump training for iLet pump and CGM training today. The following topics were reviewed today: -Pump therapy basic concepts: Basal/bolus -For most effective glucose control bolus prior to meals - Off pump backup insulin plan iLet Alerts: ??? High Alert: 300 mg/dl ??? Low Alert: 75 mg/dl CGM: Above target:33.5% At target:65.9% Below target:0.6% Patient's average glucose for the past 7 days 163.7 mg/dL Overall patient reports things went well in the 1st week with iLet. Patient did have prolonged episode of hypoglycemia in the morning of 12/07/2024, patient had done usual bolus for supper, then done less than usual supper bolus with snack later in the evening. This could have contributed to hypoglycemic event. Patient over treated lows which led to hyperglycemia after then downward excursion due to correction insulin, patient paused pump which caused glucose levels to stabilize this morning. Suggested to patient not to bolus for snacks or meals under 20-25 g of carbohydrate. Patient appears to be very insulin sensitive. Reminded patient not to over treat lows, this can lead to increase in correction insulin if levels go above target. Reminded patient to use pause feature when disconnecting from insulin pump Patient will continue on higher than usual target at this time. Suggested to patient at next visit with AUTOMATIC LUMP MAKING MACHINE TENDER can switch daytime target to usual if appropriate. In leave overnight target at higher than usual if that makes him feel more comfortable. TDD:46.5 units Basal:20.4 units Instructed patient to only use room temperature insulin, how to load cartridge or fill pod, with insulin. Fill tubing and cannula (if applicable) Patient is still waiting on PA for Humalog vials, checked on status a PA at today's visit. PA is still in progress Troubleshooting after starting new pod or inserting new insulin set: Occlusion, adhesive tape sensitivity, redness Check BG 2 hours after site change Reviewed Safety information: Importance of a backup plan, for manual injections, proper prescriptions and emergency supplies ketone strips, and rules for testing for ketones Patient reports he did check urine for ketones on 12/07/2024 after over treating low, ketone were negative Patient understands the basic concepts of pump therapy, how to give insulin for meals and snacks, how to troubleshoot for hyper and hypoglycemia. Patient will follow up with [facility] as instructed Patient will contact [facility] with questions or concerns, patient given IT number to support in any technical issues related to insulin pump Portions of this note were created using voice recognition software, please excuse any words or phrases that may have been misinterpreted. Patient Instructions: follow-up with prosthodontist/educator in 3 months, you can move the appointment up if you feel the need to be seen sooner. Follow-up with AUTOMATIC LUMP MAKING MACHINE TENDER in 12/2024 Coding Level of Care Code Est Pt Level 1 (61621) Diagnoses T1DM (type 1 diabetes mellitus) E10.9 Diabetes mellitus complication status: with circulatory complication
== END 2024-12-07 08:38 | disposition home or self-care (01) ==
PROVIDERS: PCP Internal Medicine; Visit Provider Registered Nurse Diabetes Educator
DX: E10.9 Type 1 diabetes mellitus without complications (principal)

== ENCOUNTER → 2024-12-07 07:58 | Outpatient (BNVA) | payer MEDICARE, MEDICAID, SELFPAY | PROVIDERS: PCP Internal Medicine; Visit Provider Registered Nurse Diabetes Educator | DX: Z46.81 Encounter for fitting and adjustment of insulin pump (principal); E10.9 Type 1 diabetes mellitus without complications | CPT/HCPCS: 99211 ==

== ENCOUNTER 2024-12-28 08:38 | Outpatient (AMB) | payer MEDICARE, MEDICAID, SELFPAY ==
--- NOTE | 2024-12-27 10:14 | A.OFFVIS_ITS ---
Vital Signs 12/28/24 08:40 Height 5 ft 5 in Weight 152 lb 1.903 oz BMI 25.3 BP 142/90 H Blood Pressure Location Rt brachial Position Sitting Pulse 80 Pulse Source Pulse Oximeter Pulse Oximetry (%) 100 Oxygen Delivery Method Room Air Intake Visit Reasons: DM Intake Note: Patient present today for a follow-up on Type 1 Diabetes Mellitus. Patient receives DME supplies through: Pharmacy Last Diabetic Eye exam: DUE Last Podiatry Visit: Has a Head Of Science if needed Most recent HbA1c: 8.7%, 11/29/2024 Random Glucose: 211 mg/dL, Today Mailroom Supervisor Required: No Accompanied by: Self / Same As Patient Allergies barley [Barley] Allergy (Severe, Verified 12/28/24 08:40) THROAT SWELLING fish oil [Fish Oil] Allergy (Mild, Verified 12/28/24 08:40) ITCHING fentanyl Allergy (Unknown, Verified 12/28/24 08:40) disorientation gabapentin Adverse Reaction (Unknown, Verified 12/28/24 08:40) mood changes made him angry Medication List - Last Reconciled 12/30/24 by Trcay Galarza NP acetone (urine) test (Ketone Urine Test strips) As directed prn glucose over 250, illness, nausea and vomiting blood sugar diagnostic As directed blood sugar diagnostic (OneTouch Verio test strips) tid blood-glucose meter (OneTouch Verio Flex Meter) As directed blood-glucose sensor (Dexcom G7 Sensor device) USE DIRECTED& CHANGE EVERY 10 DAYS carisoprodol 350 mg PO dextroamphetamine-amphetamine 20 mg ER 1 cap PO DAILY gemfibrozil 600 mg PO BID 90 days glucagon (Gvoke HypoPen 2-Pack) 1 mg (0.2 mL) subcut ONCE insulin glargine (Basaglar KwikPen U-100 Insulin) 18 units subcut QPM PRN insulin lispro 70 units (0.7 mL) subcut DAILY 90 days insulin lispro 6-12 units with meals subcutaneously use as directed; 90 days MDD 36 units insulin syringe-needle U-100 (BD Insulin Syringe Ultra-Fine) As directed up to quid for pump failure or glucose correction lancets As directed lancets (OneTouch Delica Plus Lancet) 2x daily lidocaine 5% 1 patch topical DAILY yorytx-eppxirwb-ypklkwc 24,000-76,000 -120,000 unit (Creon) 1 cap PO QID wnwksr-uzxxoowi-ipeixiu 497 mg (20,000- 75K-66.4K unit) caps PO multivitamin 1 tab PO DAILY omeprazole 20 mg PO DAILY oseltamivir (Tamiflu) 75 mg PO BID 5 days oxycodone ER 20 mg PO BID pen needle,diabetic dual safty (BD AutoShield Duo Pen Needle) USE DIRECTED UP TO 6 TIMES PER DAY pravastatin 10 mg PO .every other day 30 days sildenafil 100 mg PO DAILY PRN 30 days tadalafil 10 mg PO DAILY 90 days HPI Comments Details: 44 YO M with 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 He was started on an islet insulin pump 1 month ago. He was diagnosed with hypertriglyceridemia in his youth and did have episodes of pancreatitis. Had another episode of pancreatitis with ARDS and prolonged ICU course in 2016. 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 He is currently managed as a T1DM. 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 . A1C: 11/29/24 8.7% : 07/05/24 8%, 03/30/24 7.7%, 05/14/23 7.2%, 01/04/24 8.1% all A1cs were pre pump He was formerly followed by Dr. Ward at [facility]. . Cpeptide 0.18 glucose 127 on 08/16/24. Back up pump failure regimen Lantus 17 units Humalog sliding scale is: 150-199: 6 U 200-249: 8 U 250 - 299:10 U 300 - 349+: 12 U Dexcom average glucose: [155.9 ] 14 day continuous glucose monitor report reviewed Glucose Managment indicator 7.0 % Days with CGM data 95.2 % TIme in ranges: 4.2 % very high (above 250) 19 % high ?(181-250) 76.4 % in range ?(70-180] 0.2 % low (69-55) 0.1 % ?very low (below 54) [ ] Standard Deviation Interpretation: Readings in good control a week or so ago he did have higher readings at lunchtime and now the pump is giving him typically 12.3 units of insulin for lunch Breakfast 4.5 lunch 12.3 supper 7.8 Total daily basal 17.4 total daily dose 42.1 He has had several lows at lunchtime which have been severe in his required excessive carbs to correct Has hypoglycemia awareness. Treats according to the rule of 15's. Reports no retinopathy: Has eyes checked yearly, last eye exam one year ago he will schedule with an opthamologist Has neuropathy, some nubmness and tingling some which he attriures to disc disease does not see podiatry. No nephropathy. UAC 69 05/14/2023. Is on Lisinopril 2.5 mg PO daily. No history of HLD, LDL 52 05/14/2023, uses Pravastatin 10 mg PO every other day. Is on Gemfibrozil No history of CAD. Has had Diabetes Education. Diet/Carb counting: Has issues with carb counting as he had some brain damage after his ICU stay and has difficulty with math, but has been working on this. He is now meeting with [facility] for pre pump education for an Ilet pump. Denies ever having DKA. Never had severe hypoglycemia. Currently eats 6 times a day and is on pancreatic enzyme [facility] Medical History Necrotizing pancreatitis Lipid disorder Pancreatitis GERD (gastroesophageal reflux disease) Vitamin D deficiency HLD (hyperlipidemia) HTN (hypertension) T1DM (type 1 diabetes mellitus) Surgical History History of pancreatectomy History of surgery on left wrist Hx of umbilical hernia repair H/O Spinal surgery History of elbow surgery (09/2014) H/O vasectomy Family History Father Diabetes HTN (hypertension) Hyperlipemia Alcohol abuse Substance use disorder Mother Anxiety Depression Diabetes Mental health disorder Brother Kidney failure Mental health disorder Maternal Grandmother Stomach cancer Social History Household Members: Spouse and Children Housing: House Alcohol intake: never Patient Tobacco Use Status: Never used Tobacco e-Cigarette/Vaping Use: Never Used service: No Current occupational status: disabled Cognitive needs: No Hearing needs: No Vision needs: Yes Physical Exam Vital Signs: Last Vital Signs Pulse 80 12/28/24 08:40 BP 142/90 H 12/28/24 08:40 Pulse Ox 100 12/28/24 08:40 Oxygen Delivery Method Room Air 12/28/24 08:40 BMI result Body Mass Index 25.3 Const Other: Absence of Cushingoid features. Absence of acromegalic features. Neck exam reveals nl size thyroid about 15 gms. No thyroid nodules palpable. Heart S1 S2, Reg R/R. No M/R G. Skin exam reveals absence of vitiligo or acanthosis nigricans. Visual exam of foot performed. No ulcerations or open lesions. No inter digit maceration or fissuring. No onychomycosis, no callouses. Sensation intact to m onofilament exam. Vibratory sensation is normal with 128 Hz tuning fork. Office Procedures Glucose Monitoring Details Details: see hpi 59634 - Glucose monitoring, continuous-physician I&R Procedure code (CPT) selection complete Results Reviewed Results Reviewed: Laboratory Last Values Glucose (Clinic) 211 mg/dL (60-115) H 12/28/24 08:45 Assessment & Plan Assessment & Plan (1) T1DM (type 1 diabetes mellitus): Code(s): E10.9 - Type 1 diabetes mellitus without complications Category: Medical Qualifiers: Diabetes mellitus complication status: with circulatory complication Plan: 44-year-old type 1 diabetic with neuropathy recently started on an islet insulin pump. Patient is doing well. 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 He is able to articulate how to deal with low sugar, high sugar and how to assess for DKA. In consultation with clinical specialist from [employer], it was determine the best course of action was for patient to announce his lunch meals as less than a usual meal to avoid postprandial lunch hypoglycemia. Patient was advised that if this does not work, he can eat a lunch meal and not enter his meal. Patient gave permission for the [employer] computer help desk representative to contact him directly. Backup insulin plan reviewed. Patient understands that he needs to have a functioning glucometer test strips and lancets in the event he does not have a sensor he would need to check his sugar every 4 hours in enter it mainly into his pump. The patient had an opportunity to ask questions regarding treatment plan. The patient expressed understanding and agreement with the above treatment plan. The patient is aware they should contact our office by phone for worsening glucose readings or for any low blood sugars which may warrant a change in diabetes medication. Compliance is encouraged with medications and any followup testing/consults which may have been ordered. Orders: Orders AMB Glucose Monitoring Today E10.9 - Type 1 diabetes mellitus without complications Medications: Changed From insulin glargine (Basaglar KwikPen U-100 Insulin) 34 units subcut QPM PRN pump failure To insulin glargine (Basaglar KwikPen U-100 Insulin) 18 units subcut QPM PRN Patient Instructions: Troubleshooting after starting new pod or inserting new insulin set: Occlusion, adhesive tape sensitivity, redness Check BG 2 hours after site change Safety information: Importance of a backup plan, for manual injections, proper prescriptions and emergency supplies ketone strips, and rules for testing for ketones Symptoms of DKA (diabetic ketoacidosis): early: frequent urination, dry mouth, fatigue, feeling ill, severe symptoms: ketones in the urine, abdominal pain, nausea, vomiting and weakness. It is important to hydrate with sugar free liqu ids every 15-30 minutes and bring the sugars down to normal levels. If you are moderate or severe with ketones or unable to bring glucose to less than 200, go to the emergency room. The patient was counseled to achieve a target A1C of 7% (154 avg). Fasting blood sugars should be 90-130 in the morning and less than 180 two hours after meals. Reviewed the relationship between poor diabetic control and the development of complications. Take 15 carb carbohydrate grams to treat a low sugar (3-4 glucose tablets, half a glass of juice or 15 carbohydrate grams of soft candy such as gummie snacks). Recheck your sugar in 15 minutes and re-treat again with 15 carbohydrate grams if low or still with symptoms. Do not drive a car or operate machinery if you do not know what your blood sugar is, if it is low or in excess of 300. Coding Level of Care Code Est Pt Level 4 (51479) Complex EM visit Add On G2211 Diagnoses T1DM (type 1 diabetes mellitus) E10.9 Diabetes mellitus complication status: with circulatory complication CPT Codes Details - CPT: 52899 - Glucose monitoring, continuous-physician I&R ([id number]) Time Spent (min) 30 Comment Time spent reviewing labs/provider notes, face to face, chart doc
[2024-12-28 08:40] VITALS: BP 142/90; PULSE 80; O2SAT 100; BMI 25.3
[2024-12-28 08:48] LABS: Glucose, Whole Blood 211 mg/dL (60-115)
--- OUTSIDE RECORDS SUMMARY | 2024-12-28 09:27 | XMS_ITS | Clinical Summary ---
Author Organization [facility] Address [address] [place] [address] Care Team Providers Care Sliding Joint Maker Name Role Phone Unavailable Primary Care Provider [...]
--- OUTSIDE RECORDS SUMMARY | 2024-12-28 09:27 | XMS_ITS | Clinical Summary ---
Author Organization [facility] 299 [facility] Address [address] [place] [address] Phone Care Team Providers Care Caddy Master Name Role Phone Keshawn Tillman MD Primary Care Provider [phone] Allergies Active Allergy Reactions Criticality Noted Date [...] each 3 11/29/19 25 026 Active pancrelipase, Oui-Rzjw-Skom, (Creon) 24,000-76,000 -120,000 unit capsuleIndicatio ns:Pancreatic insufficiency [...] 09/21/20 24 025 Discontin ued(Reord er) pancrelipase, Qao-Nmgs-Amgi, (Creon) 24,000-76,000 -120,000 unit capsuleIndicatio ns:Pancreatic insufficiency Take 1 capsule (24,000 Units total) by mouth 4 (four) times a day. 120 each 1 10/24/19 25 025 Discontin ued(Reord er) Encounters Date Type Department Care Team Description 11/29/2024 8:00 AM EST Office Visit Gastroenterology - [address] [phone] Pati Engle MD Gastroesophageal reflux disease without esophagitis; Pancreatic insufficiency 10/24/2024 Telephone Gastroenterology - [address] [place] [address] Pati Engle MD from Last 3 Months Surgical History Surgery Date Site/Laterality Comments ESOPHAGOGASTRODUODENOSCOPY 10/12/2007 - 10/11/2008 Dr. Hensley- esophagitis and stricture UMBILICAL HERNIA REPAIR ESOPHAGOGASTRODUODENOSCOPY 12/04/2009 Esophageal ring, mild reflux on bx, nl gastric and duodenal bx CHOLECYSTECTOMY 10/12/2017 - 10/11/2018 Dr. Monique [facility] [place]- open pancreatic debridement with reagan Medical History [...] patient's age to complete this topic Insurance [facility] MEDICARE ADVANTAGE MEDICAID - [place] Care Teams Caddy Master Relationship Specialty Start Date End Date Keshawn Tillman MD [address] [place] [phone] PCP - General Internal Medicine 09/21/24
--- OUTSIDE RECORDS SUMMARY | 2024-12-28 09:27 | XMS_ITS | Encounter Summary ---
Author Organization [facility] Address [address] [place] [address] Care Team Providers Care Bottom Bleacher Name Role Phone Keshawn Tillman MD Primary Care Provider [phone] Reason for Visit * Reason Comments Chronic pancreatitis and pancreatic insu fficiency Encounter Details Date Type Department Care Team (Latest Contact Info) Description 11/29/2024 8:00 AM EST Office Visit Gastroenterology - [address] [phone] Pati Engle MD [address] [id number] Gastroesophageal reflux disease without esophagitis; Pancreatic insufficiency [...] Last Filled Start Date End Date pancrelipase, Niz-Jxqu-Cskx, (Creon) 24,000-76,000 -120,000 unit capsuleIndications: Pancreatic insufficiency [...] with a cholecystectomy by Dr. Shayne Monique [facility] in December 2017. Since that time [...] Procedure Laterality Date CHOLECYSTECTOMY 2018 Dr. Monique [facility]- open pancreatic debridement with reagan ESOPHAGOGASTRODUODENOSCOPY 2007 [...] by mouth 2 times daily as needed. [employer] G6 Transmitter device See administration instructions. gemfibroziL [...] 34 UNITS UNDER THE SKINEVERY DAY multivitamin (dwurgxatlvca-ewdi-qlxnnohq) tablet Take 1 tablet by mouth daily. [...] mouth 2 (two) times a day. pancrelipase, Syu-Nvai-Frlu, (Creon) 24,000-76,000 -120,000 unit capsule Take 1 [...] to me as he gets them done [facility]. I have asked to obtain those [...] significant diarrhea or fatty stools. Orders: pancrelipase, Qwl-Ccng-Juiu, (Creon) 24,000-76,000 -120,000 unit capsule; Take 1 capsule (24,000 Units total) by mouth 4 (four) times a day. Follow up in about 1 year (around 11/29/2025) for Next scheduled follow-up. Board Certified, Gastroenterology Gastroenterology and Hepatology Practice [facility] [email or web address] [phone] [place] [id number] [email or web address] Pati Engle MD documented in this encounter [...] crush or chew. Reorder 09/21/2024 11/29/2024 pancrelipase, Tfb-Ykfw-Zwns, (Creon) 24,000-76,000 -120,000 unit capsuleIndications:Pancre atic insufficiency [...] 09/14/2024 added in this encounter Care Teams Bottom Bleacher Relationship Specialty Start Date End Date Keshawn Tillman MD [address] [place] [phone] PCP - General Internal Medicine 09/21/24 documented as of this encounter
== END 2024-12-28 09:09 | disposition home or self-care (01) ==
LOC: HO.ENCR 08:38
PROVIDERS: PCP Internal Medicine; Visit Provider Nurse Practitioner Adult Health
DX: E10.9 Type 1 diabetes mellitus without complications (principal)
CPT/HCPCS: 95251; 99214; G2211

== ENCOUNTER → 2024-12-28 08:38 | Outpatient (BNVA) | payer MEDICARE, MEDICAID, SELFPAY | PROVIDERS: PCP Internal Medicine; Visit Provider Nurse Practitioner Adult Health | DX: E10.9 Type 1 diabetes mellitus without complications (principal); Z96.41 Presence of insulin pump (external) (internal); Z79.4 Long term (current) use of insulin | CPT/HCPCS: 82947; 99212 ==

== ENCOUNTER 2025-01-27 14:02 | Outpatient (AMB) | payer MEDICARE, MEDICAID, SELFPAY ==
--- NOTE | 2025-01-27 12:30 | A.OFFVIS_ITS ---
Vital Signs 01/27/25 14:07 Height 5 ft 5 in Weight 151 lb 0.266 oz BMI 25.1 BP 150/90 H Blood Pressure Location Rt brachial Position Sitting Pulse 91 Pulse Source Pulse Oximeter Pulse Oximetry (%) 99 Oxygen Delivery Method Room Air Intake Visit Reasons: DM Intake Note: Patient present today for a follow-up on Type 1 Diabetes Mellitus. 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 He was started on an islet insulin pump 2 months ago. He stopped the pump several days ago. He has had multiple severe episodes of hypoglycemia. He has spoken with the clinical specialist from [facility] at least several times in order to resolve this issue. He felt like he was unable to be physically active at all due to the hypoglycemia. He was diagnosed with hypertriglyceridemia in his youth and did have episodes of pancreatitis. Had another episode of pancreatitis with ARDS and prolonged ICU course in 2016. 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 He is currently managed as a T1DM. 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 He is handling pump therapy well and is consistently following any protocols that we have reviewed with him. A1C: 11/29/24 8.7% : 07/05/24 8%, 03/30/24 7.7%, 05/14/23 7.2%, 01/04/24 8.1% all A1cs were pre pump . Cpeptide 0.18 glucose 127 on 08/16/24. Lantus 14 units Humalog sliding scale is:depending on food intake and activity less than 150 1 unit 150-199: 6 U 200-249: 8 U 250 - 299:10 U 300 - 349+: 12 U He is now off pump and does not have sensor data with him today but reports his sugars have been in good control since going to [facility]. Has hypoglycemia awareness. Treats according to the rule of 15's. microalbumin Reports no retinopathy: Has eyes checked yearly, last eye exam one year ago he will schedule with an opthamologist Has neuropathy, some numbness and tingling some which he attributes to disc disease, does not see podiatry. has nephropathy. 09/2024 eGFR>60 08/16/24 microalbumin 51. Is on Lisinopril 2.5 mg PO daily. No history of HLD, LDL 52 05/14/2023, uses Pravastatin 10 mg PO every other day. Is on Gemfibrozil No history of CAD. Has had Diabetes Education. Diet/Carb counting: Has issues with carb counting a s he had some brain damage after his ICU stay and has difficulty with math, but has been working on this. Denies ever having DKA. Currently eats 6 times a day and is on pancreatic enzyme [facility] Medical History Necrotizing pancreatitis Lipid disorder Pancreatitis GERD (gastroesophageal reflux disease) Vitamin D deficiency HLD (hyperlipidemia) HTN (hypertension) T1DM (type 1 diabetes mellitus) Surgical History History of pancreatectomy History of surgery on left wrist Hx of umbilical hernia repair H/O Spinal surgery History of elbow surgery (09/2014) H/O vasectomy Family History Father Diabetes HTN (hypertension) Hyperlipemia Alcohol abuse Substance use disorder Mother Anxiety Depression Diabetes Mental health disorder Brother Kidney failure Mental health disorder Maternal Grandmother Stomach cancer Social History Household Members: Spouse and Children Housing: House Alcohol intake: never Patient Tobacco Use Status: Never used Tobacco e-Cigarette/Vaping Use: Never Used service: No Current occupational status: disabled Cognitive needs: No Hearing needs: No Vision needs: Yes Physical Exam Vital Signs: Last Vital Signs Pulse 91 01/27/25 14:07 BP 150/90 H 01/27/25 14:07 Pulse Ox 99 01/27/25 14:07 Oxygen Delivery Method Room Air 01/27/25 14:07 BMI result Body Mass Index 25.1 Const Other: Absence of Cushingoid features. Absence of acromegalic features. Neck exam reveals nl size thyroid about 15 gms. No thyroid nodules palpable. Heart S1 S2, Reg R/R. No M/R G. Skin exam reveals absence of vitiligo or acanthosis nigricans. Results Reviewed Results Reviewed: Laboratory Last Values Glucose (Clinic) 137 mg/dL (60-115) H 01/27/25 14:16 Assessment & Plan Assessment & Plan (1) T1DM (type 1 diabetes mellitus): Code(s): E10.9 - Type 1 diabetes mellitus without complications Category: Medical Qualifiers: Diabetes mellitus complication status: with circulatory complication Plan: 44-year-old type 1 diabetic secondary to pancreatic injury with neuropathy and nephropathy with preserved renal function was recently transition to an islet insulin pump and unfortunately had multiple episodes of severe hypoglycemia particularly surrounding the lunch meal. He had attempted but in a less than normal meal but still had hypoglycemia. He has reverted back to previous [facility] dosing and he will be using his sensor The patient had an opportunity to ask questions regarding treatment plan. The patient expressed understanding and agreement with the above treatment plan. The patient is aware they should contact our office by phone for worsening glucose readings or for any low blood sugars which may warrant a change in diabetes medication. Compliance is encouraged with medications and any followup testing/consults which may have been ordered. Patient Instructions: Take 15 carb carbohydrate grams to treat a low sugar (3-4 glucose tablets, half a glass of juice or 15 carbohydrate grams of soft candy such as gummie snacks). Recheck your sugar in 15 minutes and re-treat again with 15 carbohydrate grams if low or still with symptoms. Do not drive a car or operate machinery if you do not know what your blood sugar is, if it is low or in excess of 300. Coding Level of Care Code Est Pt Level 4 (45565) Complex EM visit Add On G2211 Diagnoses T1DM (type 1 diabetes mellitus) E10.9 Diabetes mellitus complication status: with circulatory complication Time Spent (min) 30 Comment Time spent reviewing labs/provider notes, face to face, chart doc
[2025-01-27 14:07] VITALS: BP 150/90; PULSE 91; O2SAT 99; BMI 25.1
[2025-01-27 14:21] LABS: Glucose, Whole Blood 137 mg/dL (60-115)
--- OUTSIDE RECORDS SUMMARY | 2025-01-27 14:27 | XMS_ITS | Clinical Summary ---
Author Organization [facility] 299 [facility] Address [address] [place] [address] Phone Care Team Providers Care Senior Sales Assistant Name Role Phone Keshawn Tillman MD Primary [...] FOR SEVERE PAIN 11/18/19 25 Active multivitamin (multivitamin-iro n-minerals) tablet Take 1 tablet by mouth daily. [...] mouth 2 (two) times a day. Active amphetamine-dextr oamphetamine XR (ADDERALL XR) 20 mg 24 hr [...] 24 Active omeprazole (PriLOSEC) [address] capsuleIndication s:Gastroesophagea l reflux disease without esophagitis Take 1 capsule (20 mg total) by mouth 1 (one) time each day. Do not crush or chew. 90 each 3 11/29/19 25 026 Active pancrelipase, Esk-Ette-Cuzw, (Creon) 24,000-76,000 -120,000 unit capsuleIndication s:Pancreatic insufficiency Take 1 capsule (24,000 Units total) by mouth 4 (four) times a day. 360 each 3 11/29/19 25 026 Active Encounters Date Type Department Care Team Description 11/29/2024 8:00 AM EST Office Visit Gastroenterology - [address] [phone] Pati Engle MD Gastroesophageal reflux disease without esophagitis; Pancreatic insufficiency from Last 3 Months Surgical History Surgery Date Site/Laterality Comments ESOPHAGOGASTRODUODENOSCOPY 10/12/2007 - 10/11/2008 Dr. Hensley- esophagitis and stricture UMBILICAL HERNIA REPAIR ESOPHAGOGASTRODUODENOSCOPY 12/04/2009 Esophageal ring, mild reflux on bx, nl gastric and duodenal bx CHOLECYSTECTOMY 10/12/2017 - 10/11/2018 [place]. 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 Diabetes mellitus associated with pancreatic disease (CMS/HCC V24, [facility] V28) Family History Medical History Relation Name Comments [...] season) 2024 09/28/2021, 01/30/2021, 01/01/2021 Influenza Vaccine (Season Ended) 2025 10/23/2023, 08/16/2021, 06/14/2019, Additional history exists DTaP,Tdap,and Td [...] age to complete this topic Meningococcal B Vaccine Aged Out No l onger eligible based on patient's age to complete [...] MEDICARE ADVANTAGE [place]ICAID - [place] Care Teams Senior Sales Assistant Relationship Specialty Start Date End Date Keshawn Tillman MD [address] [place] [phone] PCP - General Internal Medicine 09/21/24
--- OUTSIDE RECORDS SUMMARY | 2025-01-27 14:27 | XMS_ITS | Clinical Summary ---
Author Organization [facility] Address [address] [place] [address] Care Team Providers Care Management Tech Name Role Phone Unavailable Primary Care Provider Unavailabl e Social History Tobacco Use Types Packs/Day Years Used Date Smoking Tobacco: Never Assessed Sex and Gender Information Value Date Recorded Sex Assigned at Not on file Legal Sex Male 11:20 AM EST Gender Identity Not on file [...]
== END 2025-01-27 14:40 | disposition home or self-care (01) ==
LOC: HO.ENCR 14:02
PROVIDERS: PCP Internal Medicine; Visit Provider Nurse Practitioner Adult Health
DX: E10.9 Type 1 diabetes mellitus without complications (principal)
CPT/HCPCS: 99214; G2211

== ENCOUNTER → 2025-01-27 14:02 | Outpatient (BNVA) | payer MEDICARE, MEDICAID, SELFPAY | PROVIDERS: PCP Internal Medicine; Visit Provider Nurse Practitioner Adult Health | DX: E10.9 Type 1 diabetes mellitus without complications (principal) | CPT/HCPCS: 82947; 99212 ==

== ENCOUNTER 2025-05-25 08:32 | Outpatient (AMB) | payer MEDICARE, MEDICAID, SELFPAY ==
--- NOTE | 2025-05-25 08:40 | MHC.OFFVIS ---
Vital Signs 05/25/25 08:44 Height 5 ft 5 in Weight 142 lb 6.698 oz BMI 23.7 BP 132/82 Blood Pressure Location Lt brachial Position Sitting Pulse 101 H Pulse Source Pulse Oximeter Pulse Oximetry (%) 97 Oxygen Delivery Method Room Air Intake Visit Reasons: T1DM Intake Note: Patient present today to follow up on Type 1 Diabetes Mellitus. Patient receives Dexcom G7 supplies through: [employer] Last Diabetic Eye exam: Due, last appointment was on February 2024 has an appointment in September 2025. Last Podiatry Visit: Sees Podiatry PRN Random Glucose: 188 mg/dl HgA1C: 9.1% 05/25/2025 Allied Health Teacher Required: No Accompanied by: Self / Same As Patient Allergies barley (Barley) Allergy (Severe, Verified 05/25/25 09:02) THROAT SWELLING fish oil (Fish Oil) Allergy (Mild, Verified 05/25/25 09:02) ITCHING fentanyl Allergy (Unknown, Verified 05/25/25 09:02) disorientation gabapentin Adverse Reaction (Unknown, Verified 05/25/25 09:02) mood changes made him angry Medication List - Last Reconciled 05/25/25 by Bj Mathews MD acetone (urine) test (Ketone Urine Test strips) As directed prn glucose over 250, illness, nausea and vomiting Basaglar KwikPen U-100 Insulin (insulin glargine) 18 units (0.18 mL) subcut QPM PRN 90 days NS blood sugar diagnostic As directed blood sugar diagnostic (OneTouch Verio test strips) tid blood-glucose meter (OneTouch Verio Flex Meter) As directed blood-glucose sensor (Dexcom G7 Sensor device) USE DIRECTED& CHANGE EVERY 10 DAYS carisoprodol 350 mg PO dextroamphetamine-amphetamine 20 mg ER (Adderall XR) 20 mg PO QAM 30 days gemfibrozil 600 mg PO BID 90 days glucagon (Gvoke HypoPen 2-Pack) 1 mg (0.2 mL) subcut ONCE insulin glargine (Lantus Solostar U-100 Insulin) 20 units subcut QAM insulin lispro 6-12 units with meals subcutaneously use as directed; 90 days MDD 36 units insulin syringe-needle U-100 (BD Insulin Syringe Ultra-Fine) As directed up to quid for pump failure or glucose correction lancets As directed lancets ([employer] Delica Plus Lancet) 2x daily lidocaine 5% 1 patch topical DAILY siwnmv-umnehkvc-ekjdicl 24,000-76,000 -120,000 unit (Creon) 1 cap PO QID uhnqvf-vabkqpzw-opyuvjw 497 mg (20,000- 75K-66.4K unit) caps PO multivitamin 1 tab PO DAILY omeprazole 20 mg PO DAILY oseltamivir (Tamiflu) 75 mg PO BID 5 days oxycodone ER 20 mg PO BID pen needle,diabetic dual safty USE DIRECTED UP TO 6 TIMES PER DAY pravastatin 10 mg PO .every other day 30 days sildenafil 100 mg PO DAILY PRN 30 days tadalafil 10 mg PO DAILY 90 days HPI Comments Details: 45 YO M with 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 He is seen in F/U for diabetes related to pancreolytic diabetes. He was started on an islet insulin pump 2 months ago. He stopped the pump several days ago. He has had multiple severe episodes of hypoglycemia. He has spoken with the clinical specialist from [facility] at least several times in order to resolve this issue. He felt like he was unable to be physically active at all due to the hypoglycemia. He was diagnosed with hypertriglyceridemia in his youth and did have episodes of pancreatitis. Had another episode of pancreatitis with ARDS and prolonged ICU course in 2016. 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 He is currently managed as a T1DM. 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 He is handling pump therapy well and is consistently following any protocols that we have reviewed with him. . Cpeptide 0.18 glucose 127 on 08/16/24. Lantus 18 units only taking 9 units Humalog sliding scale is:depending on food intake and activity less than 150 1 unit 150-199: 6 U 200-249: 8 U 250 - 299:10 U 300 - 349+: 12 U Dexcom download shows he is using the sensor 95% of the time. Average glucose is 253 with G mi of 9.4% and standard deviation of 70 and coefficient of variation 27.8%. The sensor his active 95% of the time. 18% range with a 2% hyperglycemia and no hypoglycemia. Pattern shows persistent hyperglycemia throughout the day with small elevations post-prandial Has hypoglycemia awareness. Treats according to the rule of 15's. microalbumin Reports no retinopathy: Has eyes checked yearly, last eye exam he will schedule with an opthamologist Has neuropathy, some numbness and tingling some which he attributes to disc disease, does not see podiatry. has nephropathy. 09/2024 eGFR>60 08/16/24 microalbumin 51. Is on Lisinopril 2.5 mg PO daily. No history of HLD, LDL 52 05/14/2023, uses Pravastatin 10 mg PO every other day. Is on Gemfibrozil No history of CAD. Has had Diabetes Education. Diet/Carb counting: Has issues with carb counting as he had some brain damage after his ICU stay and has difficulty with math, but has been working on this. Denies ever having DKA. Currently eats 6 times a day and is on pancreatic enzyme [facility] Medical History Necrotizing pancreatitis Lipid disorder Pancreatitis GERD (gastroesophageal reflux disease) Vitamin D deficiency HLD (hyperlipidemia) HTN (hypertension) T1DM (type 1 diabetes mellitus) Surgical History History of pancreatectomy History of surgery on left wrist Hx of umbilical hernia repair H/O Spinal surgery History of elbow surgery (09/2014) H/O vasectomy Family History Father Diabetes HTN (hypertension) Hyperlipemia Alcohol abuse Substance use disorder Mother Anxiety Depression Diabetes Mental health disorder Brother Kidney failure Mental health disorder Maternal Grandmother Stomach cancer Social History Household Members: Spouse and Children Housing: House Alcohol intake: never Patient Tobacco Use Status: Never used Tobacco e-Cigarette/Vaping Use: Never Used service: No Current occupational status: disabled Cognitive needs: No Hearing needs: No Vision needs: Yes Physical Exam Vital Signs: Last Vital Signs Pulse 101 H 05/25/25 08:44 BP 132/82 05/25/25 08:44 Pulse Ox 97 05/25/25 08:44 Oxygen Delivery Method Room Air 05/25/25 08:44 BMI result Body Mass Index 23.7 Absence of Cushingoid features. Absence of acromegalic features. Neck exam reveals nl size thyroid about 15 gms. No thyroid nodules palpable. No carotid bruits present. Lungs CTA. Heart S1 S2, Reg R/R. No M/R/ G. Skin exam reveals absence of vitiligo or acanthosis nigricans. Abdominal exam reveals Soft NT/ND with NA BS. No organomegaly present. Neck Other: . Extrem Other: Visual exam of foot performed. No ulcerations or open lesions. No onchomycosis, no callouses.Pulses 2 + distally Sensation intact to monofilament exam. Vibratory sensation sensed is intact with 128 Hz tuning fork Results AMB Hemoglobin A1c AMB Hemoglobin A1c 9.1 % Last Edit by ZURI Duarte on 05/25/25 09:04 Results Reviewed Results Reviewed: Laboratory Last Values Glucose (Clinic) 188 mg/dL (60-115) H 05/25/25 08:55 Assessment & Plan Assessment & Plan (1) T1DM (type 1 diabetes mellitus): Code(s): E10.9 - Type 1 diabetes mellitus without complications Category: Medical Qualifiers: Diabetes mellitus complication status: with circulatory complication Plan: Is a 45-year-old white male with a history of pancrolytic diabetes due to chronic pancreatitis being treated with basal-bolus insulin with deteriorated poor glycemic control and known microvascular complications namely neuropathy Plan is to have the patient take full dose of Basiglar at 18 units and to change the lispro scale to less than 150 1 unit 150-199: 8- 10 U >200 12 . Will also discuss with patient use of various pumps including tandem, Omnipod and iLet which might bebeneficial. I went over him possibly considering different insulin pump like a Medtronic 780 G or Omnipod 5 that might have autocorrection . He is meeting with the educator senior clinical today to discuss this. In terms of the microalbuminuria, will recheck microalbumin to creatinine ratio and if still elevated may reconsider initiating lisinopril at low dose and following potassium closely Orders: Orders AMB Hemoglobin A1c Today E10.9 - Type 1 diabetes mellitus without complications Microalbumin, Random (w Creat) Today E10.9 - Type 1 diabetes mellitus without complications Coding Level of Care Code Est Pt Level 4 (79674) Complex EM visit Add On G2211 Diagnoses T1DM (type 1 diabetes mellitus) E10.9 Diabetes mellitus complication status: with circulatory complication
[2025-05-25 08:44] VITALS: BP 132/82; PULSE 101; O2SAT 97; BMI 23.7
--- OUTSIDE RECORDS SUMMARY | 2025-05-25 08:52 | XMS_ITS | Clinical Summary ---
Author Organization [facility] 299 [facility] Address [address] [place] [address] Phone Care Team Providers Care Car Installations Supervisor Name Role Phone Keshawn Tillman MD Primary Care Provider [phone] Allergies Active Allergy Reactions Criticality Noted Date [...] each 3 11/29/19 25 026 Active pancrelipase, Jmg-Bxwu-Siwu, (Creon) 24,000-76,000 -120,000 unit capsuleIndication s:Pancreatic insufficiency Take 1 capsule (24,000 Units total) by mouth 4 (four) times a day. 360 each 3 11/29/19 25 026 Active Surgical History Surgery Date Site/Laterality Comments ESOPHAGOGASTRODUODENOSCOPY 10/12/2007 - 10/11/2008 Dr. Hensley- esophagitis and stricture UMBILICAL HERNIA REPAIR ESOPHAGOGASTRODUODENOSCOPY 12/04/2009 Esophageal ring, mild reflux on bx, nl gastric and duodenal bx CHOLECYSTECTOMY 10/12/2017 - 10/11/2018 Dr. 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 Diabetes mellitus associated with pancreatic disease (CMS/HCC V24, [facility] V28) Family History Medical History Relation [...] of 3 - 19+ 3-dose series) 02/22/2000 HIV Screening 09/14/2022 Hepatitis C Screening 09/14/2022 Medicare Annual Wellness Visit 09/14/2022 Social Influencers of Health Screening 09/14/2022 Cholesterol Screening (Lipid Panel) 11/17/2022 11/17/2017 COVID-19 Vaccine ( season) 2024 09/28/2021, 01/30/2021, 01/01/2021 Depression Screening 10/12/2024 Influenza Vaccine (#1) 2025 , 08/16/2021, 06/14/2019, Additional history exists DTaP,Tdap,and [...] 5 Years) and At-Risk Patients (6 to 49 Years) Aged Out No longer eligible based on patient's age to complete this topic RSV Immunization Patients Under 20 months Aged Out No longer eligible based on patient's age to complete this topic Varicella Vaccines Aged Out No longer eligible based on patient's age to complete this topic Insurance BLUE CROSS - [place] MEDICARE ADVANTAGE [place] - [place] Care Teams Car Installations Supervisor Relationship Specialty Start Date End Date Keshawn Tillman MD [address] [place] [phone] PCP - General Internal Medicine 09/21/24
--- OUTSIDE RECORDS SUMMARY | 2025-05-25 08:52 | XMS_ITS | Clinical Summary ---
Author Organization [facility] Address [address] [place] [address] Care Team Providers Care Asbestos Pipe Supervisor Name Role Phone Unavailable Primary Care Provider [...] of 3 - 19+ 3-dose series) 02/22/2000 HPV Vaccines (1 - 3-dose SCD M series) 02/22/2008 COVID-19 Vaccine (2023-2 5 season) 2024 Pneumococcal Vaccine: Pediat drake (0-5 Years) and At-Risk Patients (6 to 49 Years) Aged Out No longer eligible b ased on patient's age to complete this topic
--- OUTSIDE RECORDS SUMMARY | 2025-05-25 08:52 | XMS_ITS | Clinical Summary ---
Author Organization [facility] Address [address] [place] [address] Phone Care Team Providers Care Manager Helpdesk Name Role Phone Kurtis Courtney MD Primary Care Provider [phone] Allergies Active Allergy Reactions Criticality Noted Date Comments Barley Anaphylaxis High 12/10/2017 Fentanyl Mental Status Change Medium 11/17/2017 Gabapentin Mental Status Change Medium 11/17/2017 Medications insulin lispro (HUMALOG) 100 unit/mL InPn injection pen Inject under the skin 3 (three) times a day with meals. Active gemfibrozil (LOPID) 600 MG tablet Take 600 mg by mouth 2 (two) times a day before meals. Active oxyCODONE (OXYCONTIN) 20 mg 12 hr tablet Take 20 mg by mouth every 12 (twelve) hours. Active oxyCODONE HCl 10 mg Tab Take 20 mg by mouth every 4 (four) hours as needed. Active carisoprodol (SOMA) 350 MG tablet Take 350 mg by mouth 2 (two) times a day as needed. Active therapeutic multivitamin tablet Take 1 tablet by mouth daily. Active food supplemt, lactose-reduced (,ENSURE PLUS,) 0.05-1.5 gram-kcal/mL Liqd Take 1 Can by mouth 2 (two) times a day with meals. Active pancrelipase, lipase-protease- amylase, (ZENPEP) 20,000-68,000 -109,000 unit CpDR capsule 20,000 units of lipase 3 (three) times a day with meals. Active insulin glargine (LANTUS) 100 unit/mL injection vial Inject 6 Units under the skin nightly. Increase dose to home 12 units when morning blood glucose levels are consistently > 160. 8 Active omeprazole (PRILOSEC) 20 MG capsule Take 1 capsule (20 mg total) by mouth daily before breakfast. 30 capsule 8 Active polyethylene glycol (MIRALAX) 17 gram packet Take 17 g by mouth daily as needed. Use this medication to prevent constipation while taking pain medication. This medication is available over the counter. 8 Active Additional Information Patient not taking.Reported on 01/05/2018 acetaminophen (TYLENOL) 500 MG tablet Take 2 tablets (1,000 mg total) by mouth every 8 (eight) hours. - Take every 8 hours for 4 days, then take up to 3 times a day as needed for pain. 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 Family History Medical History Relation Comments Diabetes Father Stroke Mother Relation Status Comments Father Mother Social History Tobacco Use Types Packs/Day Years [...] on file Sexual Orientation Not on file Last Filed Vital Signs Vital Sign Reading Time Taken Comments Blood Pressure 138/79 01/05/2018 1:51 PM EDT Pulse 88 01/05/2018 1:51 PM EDT Temperature 36.7 C (98.1 F) 12/25/2017 7:28 AM EDT Respiratory Rate 18 12/25/2017 7:28 AM EDT Oxygen Saturation 99% 12/25/2017 7:28 AM EDT Inhaled Oxygen Concentration - - Weight 63 kg (139 lb) 01/05/2018 1:51 PM EDT Height 165.1 cm (5' 5 ) 01/05/2018 1:51 PM EDT Body Mass Index 23.13 01/05/2018 1:51 PM EDT Plan of Treatment Health Maintenance Due Date Last Done Comments Adult Td,Tdap Booster 1981 DEPRESSION SCREENING 1993 HEPATITIS C SCREENING 1999 HIV ONE-TIME SCREENING (18-6 5 YEARS) 1999 LIPID PANEL 11/17/2022 11/17/2017 COVID-19 VACCINE (3 - 2023-2 5 season) 2024 01/30/2021, 01/01/2021 SMOKING STATUS SCREENING (On ce After 26 Yrs) Completed 01/05/2018 HEPATITIS A VACCINES Aged Out No long er eligible based on patient's age to complete this topic HIB VACCINES Aged Out No longer eligi ble based on patient's age to complete this topic MENINGOCOCCAL VACCINES (ACWY) Aged Out No longer eligible based on patient's age to complete this topic MENINGOCOCCAL VACCINES (B) Aged Out N o longer eligible based on patient's age to complete this topic PNEUMOCOCCAL VACCINES (0-49 years) Aged Out No longer eligible b ased on patient's age to complete this topic Medical Devices Not on file Procedures Procedure Name Priority Date/Time Associated Diagnosis Comments LIPID PANEL Routine 11/17/2017 5:19 PM EST Pancreatic necrosis from Last 3 Months or Most Recently Relevant to Health Maintenance Results * Lipid panel (11/17/2017 5:19 PM EST) HDL 56 35 - 100 mg/dL [facility] CHOLESTEROL 131 <200 mg/dL [facility] TRIGLYCERIDES 78 40 - 150 mg/dL [facility] LDL 59 50 - 129 mg/dL [facility] CARDIAC RISK RATIO 2.3 0.0 - 5.0 [facility] NON-HDL CHOLESTEROL 75 mg/dL [facility] Comment:NCEP ATP III guideli diya suggest a non-HDL cholesterol goal 30 mg/dl higher than the patient-specific LDL goal. 11/17/2017 5:19 PM EST 11/17/2017 6:34 PM EST us Shayne Monique MD LAB BLOOD ORDER BENITO Final Result [facility] [address] [place] [address] from Last 3 Months or Most Recently Relevant to Health Maintenance Insurance [facility] [place] [facility] Advance Directives For more information, please contact: [phone] (9AM - 5PM Lyn/[facility], Thursday-Thursday) * Full Code (Presumed) (Latest Code Status on File) Date Activated Date Inactivated Comments 12/17/2017 4:44 PM 12/25/2017 1:01 PM Care Teams Manager Helpdesk Relationship Specialty Start Date End Date Kurtis Courtney MD [address] [place] [phone] PCP - General 12/31/17 Additional Source Comments The information contained in this document represents components of the legal health record. It is not the complete legal health record.[facility]
[2025-05-25 09:00] LABS: Glucose, Whole Blood 188 mg/dL (60-115)
== END 2025-05-25 09:16 | disposition home or self-care (01) ==
LOC: HO.ENCR 08:38
PROVIDERS: PCP Internal Medicine; Visit Provider Internal Medicine Endocrinology, Diabetes & Metabolism
DX: E10.9 Type 1 diabetes mellitus without complications (principal)
CPT/HCPCS: 99214; G2211

== ENCOUNTER → 2025-05-25 08:32 | Outpatient (BNVA) | payer MEDICARE, MEDICAID, SELFPAY | PROVIDERS: PCP Internal Medicine; Visit Provider Internal Medicine Endocrinology, Diabetes & Metabolism | DX: E10.9 Type 1 diabetes mellitus without complications (principal) | CPT/HCPCS: 82947; 83036; 99212 ==

== ENCOUNTER 2025-06-20 08:31 | Outpatient (AMB) | payer MEDICARE, MEDICAID, SELFPAY ==
--- OUTSIDE RECORDS SUMMARY | 2016-07-27 | XMS_ITS | Encounter Summary ---
Author Organization [facility] Address [address] [place] [address] Phone Care Team Providers Care Sap Data Analyst Name Role Phone Unavailable Primary Care Provider Unavailabl e Encounter Details Date Type Department Care Team (Late st Contact Info) Description 07/27/2016 Hospital Encounter [facility] [address] [place] [address] Shayne Rodriguez MD [address] [place] [address] [email or web address] Social History Tobacco Use Types [...] (No Interpretation) (07/27/2016 12:00 AM EDT) Narrative [facility] [place] [facility] INTERFACES - 11/17/2017 1:20 PM EST This study is for PACS storage only and not for interpretation. us Shayne Monique MD IMG OUT SIDE IMAGING W/OUT INTERPRETATION Final Result [facility] [place] [facility] INTERFACES documented in this encounter Visit Diagnoses Not on filedocumented in this encounter Additional Source Comments The information contained in this document represents components of the legal health record. It is not the complete legal health record.[facility]
--- OUTSIDE RECORDS SUMMARY | 2016-09-22 01:00 | XMS_ITS | Encounter Summary ---
Author Organization [facility] Address [address] [place] [phone] Phone Care Team Providers Care Investment Strategist Name Role Phone Unavailable Primary Care Provider Unavailabl e Encounter Details Date Type Department Care Team (Late st Contact Info) Description 09/22/2016 Hospital Encounter [facility] [address] [place] [address] Shayne Rodriguez MD [address] [place] [address] [email or web address] Social History Tobacco Use Types Packs/Day Years [...] (No Interpretation) (09/22/2016 12:00 AM EST) Narrative [facility] [place] - 11/17/2017 1:20 PM EST This study is for PACS storage only and not for interpretation. us Shayne Monique MD IMG OUT SIDE IMAGING W/OUT INTERPRETATION Final Result [facility] INTERFACES documented in this encounter Visit Diagnoses Not on filedocumented in this encounter Additional Source Comments The information contained in this document represents components of the legal health record. It is not the complete legal health record.[facility]
--- NOTE | 2025-06-20 08:33 | MHC.OFFVIS ---
Intake Visit Reasons: 1y follow up Intake Note: Patient is present for: 1YR FOLLOW UP Uro Medication: Tadalafil,Sildenafil BLOOD THINNERS: NONE Nursing Administrator Required: No Accompanied by: Self / Same As Patient Allergies barley (Barley) Allergy (Severe, Verified 06/20/25 08:33) THROAT SWELLING fish oil (Fish Oil) Allergy (Mild, Verified 06/20/25 08:33) ITCHING fentanyl Allergy (Unknown, Verified 06/20/25 08:33) disorientation gabapentin Adverse Reaction (Unknown, Verified 06/20/25 08:33) mood changes made him angry HPI Comments Details: Mr Wick is a very pleasant male. He is a patient of Dr Tillman. He is seen for the following urologic conditions. - erectile dysfunction secondary to diabetes Stable with tadalafil Prescription provided Recent three-week admission to [facility] with tube feeding Has lost significant muscle mass Sugar control is now difficult Check testosterone levels may need boost for recovery Genitourinary symptoms:? 12/27 Presents with questions regarding scarring to his penis. Had been admitted to ICU and was in a coma for 6 weeks. At that time had blistering on his penis which has led to some degree of scarring. On examination this appears to have been superficial but involved the pigmented LAD. Is minimal scarring. There is evidence of the blistering that is now well-healed running down the left lateral side of the penis. The meatus is normal. He does also suffer from inguinal disruption particularly on the right side with pain at the insertion between his rectus and his symphysis pubis. This will resolve slowly over 3 months as his strength is builds back up again. This was all result of pancreatitis secondary to gallstones and familial triglyceridemia ?12/28 Fully healed skin on penis - describes areas of decreased sensitivity, glans sensitivity normal. Unlikely to recover superfiical skin sensitivity. ?Has right sided inguinal disruption with pain on palpation of the rectus insertion ?Intermittent trouble with erections - has been using L-Arginine for low nitrogren- offered sildenafil and rx provided ?01/29 switched to daily tadalafil. Has memory issues so planning with sildenafil has been a challenge. Had been using L arginine for low nitrogen. Discussed his diabetic control ?04/30 good effect with daily tadalafil. Will continue to follow [facility] Medical History (Updated 06/20/25 @ 09:21 by Kiet Soriano MD) Necrotizing pancreatitis Lipid disorder Pancreatitis GERD (gastroesophageal reflux disease) Vitamin D deficiency HLD (hyperlipidemia) HTN (hypertension) T1DM (type 1 diabetes mellitus) Surgical History History of surgery History of pancreatectomy History of surgery on left wrist Hx of umbilical hernia repair H/O Spinal surgery History of elbow surgery (09/2014) H/O vasectomy Family History Father Diabetes HTN (hypertension) Hyperlipemia Alcohol abuse Substance use disorder Mother Anxiety Depression Diabetes Mental health disorder Brother Kidney failure Mental health disorder Maternal Grandmother Stomach cancer Social History Household Members: Spouse and Children Housing: House Alcohol intake: never Patient Tobacco Use Status: Never used Tobacco e-Cigarette/Vaping Use: Never Used service: No Current occupational status: disabled Cognitive needs: No Hearing needs: No Vision needs: Yes Review of Systems Const Denies chills and Denies fever(s) Card Reports no additional complaints and Denies syncope Resp Denies cough GI Denies abdominal pain and Denies heartburn Reports as per HPI and Denies change in libido Neuro Denies syncope Psych Denies change in libido Endo Denies change in libido Physical Exam Const General: cooperative, healthy appearing, comfortable and no acute distress Orientation/consciousness: patient oriented x3 HEENT Face and sinus: Yes normal facial exam Mouth: moist mucous membranes Neck Neck: Yes normal visual inspection, Yes full ROM and Yes trachea midline Chest Chest palpation & inspection: normal inspection of the chest Resp Effort & Inspection: normal respiratory effort, able to speak in complete sentences and no respiratory distress GI Inspection: Yes normal to inspection Back/Spine/Pelvis Cervical Spine: normal cervical lordosis Thoracic/Lumbar Spine: thoracic and lumbar spine normal to inspection Skin General skin exam: no rashes or lesions noted Neuro General: patient oriented x3, gait normal, tone normal and moves all extremities Extrem General: Yes normal to inspection and Yes capillary refill normal Assessment & Plan Assessment & Plan (1) Erectile dysfunction associated with type 2 diabetes mellitus: Code(s): E11.69 - Type 2 diabetes mellitus with other specified complication; N52.1 - Erectile dysfunction due to diseases classified elsewhere Category: Medical (2) Muscle atrophy: Code(s): M62.50 - Muscle wasting and atrophy, not elsewhere classified, unspecified site Category: Medical Plan Review testosterone labs Refill prescription Orders: Orders Lutenizing Hormone Today E11.69 - Type 2 diabetes mellitus with other specified complication, N52.1 - Erectile dysfunction due to diseases classified elsewhere Testosterone, Free/Total Today E11.69 - Type 2 diabetes mellitus with other specified complication, N52.1 - Erectile dysfunction due to diseases classified elsewhere Estrad Free (Tot Ultra + Free) Today E11.69 - Type 2 diabetes mellitus with other specified complication, N52.1 - Erectile dysfunction due to diseases classified elsewhere Medications: Refilled tadalafil 10 mg PO DAILY 90 tabs 3RF 90 days E11.69 - Type 2 diabetes mellitus with other specified complication, N52.1 - Erectile dysfunction due to diseases classified elsewhere Patient Instructions: This note is constructed using voice recognition software. While every effort has been made to ensure accuracy track watchman errors may have been included. Imaging studies, laboratory and physical exam results were discussed and reviewed in detail. No major barriers to patient understanding were identified. An opportunity to ask questions regarding the treatment plan was provided. All questions were answered. The patient expressed understanding and agreement with the above treatment plan. The patient is aware they should contact our office by phone for worsening of their current condition or the appearance of new urologic symptoms. Compliance is encouraged with any medications and followup testing that is ordered. It is a privilege to participate in the urologic care of your patient. If you have any questions or concerns regarding treatment for the above conditions, or other urologic issues, please do not hesitate to contact me. The office telephone contact is [phone]. Sincerely, Dr Kiet Soriano MD, [facility] - Urology Compassionate Specialist Care for the Genitourinary System Coding Level of Care Code Est Pt Level 4 (42819) Complex EM visit Add On G2211 Diagnoses Erectile dysfunction associated with type 2 diabetes mellitus E11.69; N52.1 Muscle atrophy M62.50
--- OUTSIDE RECORDS SUMMARY | 2025-06-20 09:34 | XMS_ITS | Encounter Summary ---
Author Organization [facility] Address [address] [place] [address] Phone Care Team Providers Care Investigative Analyst Name Role Phone Keshawn Tillman MD Primary Care Provider [phone] Kurtis Courtney MD Primary Care Provider [phone] Encounter Details Date Type Department Care Team (Late st Contact Info) Description 11/17/2017 Procedure Pass [facility] General Imaging [address] [place] [address] Social History Tobacco Use Types Packs/Day Years [...] documented as of this encounter Visit Diagnoses Not on filedocumented in this encounter Care Teams Investigative Analyst Relationship Specialty Start Date End Date Keshawn Tillman MD [address] [facility] [place] [address] PCP - General Internal Medicine 10/28/17 12/30/17 Kurtis Courtney MD [address] [place] [phone] PCP - General 12/31/17 documented as of this encounter Additional Source Comments The information contained in this document represents components of the legal health record. It is not the complete legal health record.[facility]
--- OUTSIDE RECORDS SUMMARY | 2025-06-20 09:34 | XMS_ITS | Clinical Summary ---
Author Organization [facility] Address [address] [place] [address] Phone Care Team Providers Care Crushed Stone Grader Name Role Phone Kurtis Courtney MD Primary Care Provider [phone] Allergies Active Allergy Reactions Criticality Noted Date [...] HEPATITIS C SCREENING 1999 HIV ONE-TIME SCREENING (18-65 YEARS) 1999 LIPID PANEL 11/17/2022 11/17/2017 INFLUENZA VACCINE (#1) 2025 9, 07/29/2018, 08/04/2017, Additional history exists COVID-19 VACCINE (2024- season) 2025 01/30/2021, 01/01/2021 SMOKING STATUS SCREENING (Once After 26 Yrs) Completed 01/05/2018 HEPATITIS A [...] (0-49 years) Aged Out No longer eligible based on patient's age to complete this topic Medical Devices Not on file Procedures Procedure Name Priority Date/Time Associated Diagnosis Comments LIPID PANEL Routine 11/17/2017 5:19 PM EST Pancreatic necrosis from Last 3 Months or Most Recently Relevant to Health Maintenance Results * Lipid panel (11/17/2017 5:19 PM EST) HDL 56 35 - 100 mg/dL [facility] CHOLESTEROL 131 <200 mg/dL [facility] TRIGLYCERIDES 78 40 - 150 mg/dL [facility] LDL 59 50 - 129 mg/dL [facility] CARDIAC RISK RATIO 2.3 0.0 - 5.0 [facility] NON-HDL CHOLESTEROL 75 mg/dL [facility] Comment:NCEP ATP III guideli diya suggest a non-HDL cholesterol goal 30 mg/dl higher than the patient-specific LDL goal. 11/17/2017 5:19 PM EST 11/17/2017 6:34 PM EST us Shayne Monique MD LAB BLOOD ORDER BENITO Final Result [address] [address] from Last 3 Months or Most Recently Relevant to Health Maintenance Insurance [facility] [place] [address] [place] [address] [place] [address] Advance Directives For more information, please contact: [phone] (9AM - 5PM Lyn/[facility], Thursday-Thursday) * Full Code (Presumed) (Latest Code Status on File) Date Activated Date Inactivated Comments 12/17/2017 4:44 PM 12/25/2017 1:01 PM Care Teams Crushed Stone Grader Relationship Specialty Start Date End Date Kurtis Courtney MD [address] [place] [phone] PCP - General 12/31/17 Additional Source Comments The information contained in this document represents components of the legal health record. It is not the complete legal health record.[facility]
--- OUTSIDE RECORDS SUMMARY | 2025-06-20 09:34 | XMS_ITS | Encounter Summary ---
Author Organization [facility] Address [address] [place] [address] Phone Care Team Providers Care Bark Fitter Name Role Phone Keshawn Tillman MD Primary Care Provider [phone] Kurtis Courtney MD Primary Care Provider [phone] Encounter Details Date Type Department Care Team (Late st Contact Info) Description 11/17/2017 Procedure Pass [facility] Imaging [address] [place] [address] Social History Tobacco Use Types Packs/Day Years [...] on filedocumented in this encounter Care Teams Bark Fitter Relationship Specialty Start Date End Date Keshawn Tillman MD [facility] [place] [address] PCP - General Internal Medicine 10/28/17 12/30/17 Kurtis Courtney MD [address] [place] [phone] PCP - General 12/31/17 documented as of this encounter Additional Source Comments The information contained in this document represents components of the legal health record. It is not the complete legal health record.[facility]
--- OUTSIDE RECORDS SUMMARY | 2025-06-20 09:34 | XMS_ITS | Encounter Summary ---
Author Organization [facility] Address [address] [place] [address] [place] [address] Phone Care Team Providers Care Rawhide Bone Roller Name Role Phone Keshawn Tillman MD Primary Care Provider [phone] Kurtis Courtney MD Primary Care Provider Encounter Details Date Type Department Care Team (Late st Contact Info) Description 11/25/2017 Prep for Surgery [facility] [address] [place] [address], [address] Floor, [address] [place] [address] Shayne Rodriguez MD [address] [place] [address] [email or web address] Social History Tobacco Use Types Packs/Day Years Used Date Smoking Tobacco: Never Smokeless Tobacco: Never Sex and Gender Information Value Date Recorded Sex Assigned at Not on file Legal Sex Male 11:44 AM EST Gender Identity Not on file Sexual Orientation Not on file documented as of this encounter Plan of Treatment Not on file documented as of this encounter Visit Diagnoses Not on filedocumented in this encounter Care Teams Rawhide Bone Roller Relationship Specialty Start Date End Date Keshawn Tillman MD [address] [place] [address] PCP - General Internal Medicine 10/28/17 12/30/17 Kurtis Courtney MD [address] [place] [phone] PCP - General 12/31/17 documented as of this encounter Additional Source Comments The information contained in this document represents components of the legal health record. It is not the complete legal health record.[facility]
--- OUTSIDE RECORDS SUMMARY | 2025-06-20 09:34 | XMS_ITS | Clinical Summary ---
Author Organization [facility] Address [address] [place] [address] Care Team Providers Care It Compliance Analyst Name Role Phone Unavailable Primary Care [...] 3-dose SCD M series) 02/22/2008 COVID-19 Vaccine ( - 2023-2 5 season) 2025 Pneumococcal Vaccine: Pediat drake (0-5 Years) and At-Risk Patients (6 to 49 Years) Aged Out No longer eligible b ased on patient's age to complete this topic
--- OUTSIDE RECORDS SUMMARY | 2025-06-20 09:34 | XMS_ITS | Encounter Summary ---
Author Organization [facility] Address [address] [place] [address] Phone Care Team Providers Care Cigarette Packing Machine Operator Name Role Phone Keshawn Tillman MD Primary Care Provider [phone] Kurtis Courtney MD Primary Care Provider [phone] Encounter Details Date Type Department Care Team (Late st Contact Info) Description 11/17/2017 Procedure Pass [facility] General Imaging [address] [place] [address] Social History Tobacco Use Types Packs/Day Years [...] on filedocumented in this encounter Care Teams Cigarette Packing Machine Operator Relationship Specialty Start Date End Date Keshawn Tillman MD [address] [facility] [place] [address] PCP - General Internal Medicine 10/28/17 12/30/17 Kurtis Courtney MD [address] [place] [phone] PCP - General 12/31/17 documented as of this encounter Additional Source Comments The information contained in this document represents components of the legal health record. It is not the complete legal health record.[facility]
--- OUTSIDE RECORDS SUMMARY | 2025-06-20 09:34 | XMS_ITS | Encounter Summary ---
Author Organization [facility] Address [address] [place] [address] Phone Care Team Providers Care Director Of Tax Services Name Role Phone Keshawn Tillman MD Primary Care Provider [phone] Kurtis Courtney MD Primary Care Provider [phone] Encounter Details Date Type Department Care Team (Late st Contact Info) Description 11/17/2017 Procedure Pass [facility] Imaging [address] [place] [address] Social History Tobacco Use Types Packs/Day Years [...] on filedocumented in this encounter Care Teams Director Of Tax Services Relationship Specialty Start Date End Date Keshawn Tillman MD [facility] [place] [address] PCP - General Internal Medicine 10/28/17 12/30/17 Kurtis Courtney MD [address] [place] [phone] PCP - General 12/31/17 documented as of this encounter Additional Source Comments The information contained in this document represents components of the legal health record. It is not the complete legal health record.[facility]
--- OUTSIDE RECORDS SUMMARY | 2025-06-20 09:34 | XMS_ITS | Encounter Summary ---
Author Organization [facility] Address [address] [place] [address] Phone Care Team Providers Care Quality Review Specialist Name Role Phone Keshawn Tillman MD Primary Care Provider [phone] Kurtis Courtney MD Primary Care Provider Encounter Details Date Type Department Care Team (Late st Contact Info) Description 12/17/2017 Procedure Pass [facility] PERIOPERATIVE DEPT [address] [place] [address] Social History Tobacco Use Types Packs/Day Years [...] on filedocumented in this encounter Care Teams Quality Review Specialist Relationship Specialty Start Date End Date Keshawn Tillman MD [address] [facility] [address] [place] [address] PCP - General Internal Medicine 10/28/17 12/30/17 Kurtis Courtney MD [address] [place] [phone] PCP - General 12/31/17 documented as of this encounter Additional Source Comments The information contained in this document represents components of the legal health record. It is not the complete legal health record.[facility]
--- OUTSIDE RECORDS SUMMARY | 2025-06-20 09:34 | XMS_ITS | Clinical Summary ---
Author Organization [facility] [address] [facility] Address [address] [place] [address] Phone Care Team Providers Care Bleach Mixer Name Role Phone Keshawn Tillman MD Primary Care Provider [phone] Allergies Active Allergy Reactions Criticality Noted Date [...] each 3 11/29/19 25 026 Active pancrelipase, Egd-Ugiu-Lzdj, (Creon) 24,000-76,000 -120,000 unit capsuleIndication s:Pancreatic insufficiency [...] bx CHOLECYSTECTOMY 10/12/2017 - 10/11/2018 [facility] 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
== END 2025-06-20 09:23 | disposition home or self-care (01) ==
LOC: HO.HUSH 08:32
PROVIDERS: PCP Internal Medicine; Visit Provider Urology
DX: E11.69 Type 2 diabetes mellitus with other specified complication (principal); N52.1 Erectile dysfunction due to diseases classified elsewhere; M62.50 Muscle wasting and atrophy, not elsewhere classified, unspecified site
CPT/HCPCS: 99214; G2211

== ENCOUNTER → 2025-06-20 08:31 | Outpatient (BNVA) | payer MEDICARE, MEDICAID, SELFPAY | PROVIDERS: PCP Internal Medicine; Visit Provider Urology | DX: E11.69 Type 2 diabetes mellitus with other specified complication (principal); M62.50 Muscle wasting and atrophy, not elsewhere classified, unspecified site; N52.1 Erectile dysfunction due to diseases classified elsewhere | CPT/HCPCS: 99212 ==

== ENCOUNTER 2025-07-20 09:03 | Outpatient (AMB) | payer MEDICARE, MEDICAID, SELFPAY ==
--- NOTE | 2025-07-20 09:59 | A.OFFVIS_ITS ---
Intake Intake Visit Reasons: 60 min Remote Encoding Center Manager Required: No Accompanied by: Self / Same As Patient Allergies barley (Barley) Allergy (Severe, Verified 06/20/25 08:33) THROAT SWELLING fish oil (Fish Oil) Allergy (Mild, Verified 06/20/25 08:33) ITCHING fentanyl Allergy (Unknown, Verified 06/20/25 08:33) disorientation gabapentin Adverse Reaction (Unknown, Verified 06/20/25 08:33) mood changes made him angry [facility] Medical History (Updated 06/20/25 @ 09:21 by Kiet Soriano MD) Necrotizing pancreatitis Lipid disorder Pancreatitis GERD (gastroesophageal reflux disease) Vitamin D deficiency HLD (hyperlipidemia) HTN (hypertension) T1DM (type 1 diabetes mellitus) Surgical History History of surgery History of pancreatectomy History of surgery on left wrist Hx of umbilical hernia repair H/O Spinal surgery History of elbow surgery (09/2014) H/O vasectomy Family History Father Diabetes HTN (hypertension) Hyperlipemia Alcohol abuse Substance use disorder Mother Anxiety Depression Diabetes Mental health disorder Brother Kidney failure Mental health disorder Maternal Grandmother Stomach cancer Social History Household Members: Spouse and Children Housing: House Alcohol intake: never Patient Tobacco Use Status: Never used Tobacco e-Cigarette/Vaping Use: Never Used service: No Current occupational status: disabled Cognitive needs: No Hearing needs: No Vision needs: Yes Assessment & Plan Assessment & Plan (1) T1DM (type 1 diabetes mellitus): Code(s): E10.9 - Type 1 diabetes mellitus without complications Qualifiers: Diabetes mellitus complication status: with circulatory complication Plan: Personal Continuous Glucose Monitor: Patients CGM information reviewed, Pt uses Dexcom G7 with recevier Patient is currently using Basaglar 22 units daily Humalog sliding scale Patient is experiencing hyperglycemia throughout the day and overnight. Reports he is currently under stress due to his 's illness. Although he had tried insulin pump therapy with iLet, he had to discontinue due to episodes of hypoglycemia At today's visit we reviewed the option of using the Omnipod 5 insulin pump. Patient reports that he will consider over the next month. Recommended to patient he titrate the Basaglar up by 2 units, every 3 days until fasting glucose is consistently below 150 mg/dL. Reviewed how to treat hypoglycemia: Hypoglycemia or blood glucose under 70 use the rule of 15's: If you have your blood glucose meter test your blood glucose, if you do not have your meter still follow below instruction: Keep quick-sugar foods with you at all times.? Take 15 grams of fast acting carbohydrates. Examples are 4 ounces of fruit juice or regular soda pop, 8 ounces fat-free milk, 1 tablespoon of table sugar, honey or corn syrup, jam, one miniature box of raisins, 7-8 gumdrops or Life Savers candy, 4 glucose tablets, and glucose gel.? Retest blood glucose in 15 minutes, if blood glucose is still under 80,repeat rule of 15's. If blood glucose is under 50, take 30 grams of fast acting carbohydrates If you are having hypoglycemia, or insulin reaction, more that a few times a week, call MD or rn diabetes educator F/U BG check Reviewed how to interpret trend arrows Reminded patient that to check finger sticks if symptoms do not match sensor reading. Discussed lag time between finger stick and sensor data.? Patient able to insert sensor independently at home without issue.? Portions of this note were created using voice recognition software, please excuse any words or phrases that may have been misinterpreted. Patient Instructions: Follow-up with diabetes education nurse in 4 weeks Coding Level of Care Code Est Pt Level 1 (92966) Diagnoses T1DM (type 1 diabetes mellitus) E10.9 Diabetes mellitus complication status: with circulatory complication
== END 2025-07-20 10:02 | disposition home or self-care (01) ==
LOC: HO.ENCR 09:04
PROVIDERS: PCP Internal Medicine; Visit Provider Registered Nurse Diabetes Educator
DX: E10.9 Type 1 diabetes mellitus without complications (principal)

== ENCOUNTER → 2025-07-20 09:03 | Outpatient (BNVA) | payer MEDICARE, MEDICAID, SELFPAY | PROVIDERS: PCP Internal Medicine; Visit Provider Registered Nurse Diabetes Educator | DX: E10.9 Type 1 diabetes mellitus without complications (principal) | CPT/HCPCS: 99211 ==

== ENCOUNTER 2025-08-21 08:53 | Outpatient (REF) | payer MEDICARE, MEDICAID, SELFPAY ==
--- OUTSIDE RECORDS SUMMARY | 2016-07-26 23:00 | XMS_ITS | Encounter Summary ---
Author Organization [facility] Address [address] [place] [id number] Phone Care Team Providers Care Watchguard Name Role Phone Unavailable Primary Care Provider Unavailabl e Encounter Details Date Type Department Care Team (Late st Contact Info) Description 07/27/2016 Hospital Encounter [facility] [address] [place] [address] Shayne Rodriguez MD [address] [address] [email or web address] Social History Tobacco Use Types Packs/Day Years Used Date Smoking Tobacco: Never Smokeless Tobacco: Never Alcohol Use Standard Drinks/Week Comments No 0 (1 standard drink = 0.6 oz pur e alcohol) Education Answer Date Recorded Are you interested in more education? Not on germaine e 02/06/2023 Are you concerned about learning? Not on file 02/06/2023 No 02/06/2023 No 02/06/2023 Digital Access Answer Date Recorded No 03/10/2023 No 03/10/2023 No 03/10/2023 Reliable internet access at home? Not on file 03/10/2023 Device with a working camera? Not on file Sex and Gender Information Value Date Recorded Sex Assigned at Not on file Legal Sex Male 11:44 AM EST Gender Identity Not on file Sexual Orientation Not on file documented as of this encounter Plan of Treatment Not on file documented as of this encounter Procedures Procedure Name Priority Date/Time Associated Diagnosis Comments CT ABDOMEN OUTSIDE (NO INTERPRETATION) Routine 07/27/2016 12:00 AM EDT documented in this encounter Results * CT Abdomen Outside (No Interpretation) (07/27/2016 12:00 AM EDT) Narrative [facility]G INTERFACES - 11/17/2017 1:20 PM EST This study is for PACS storage only and not for interpretation. us Shayne Monique MD IMG OUT SIDE IMAGING W/OUT INTERPRETATION Final Result [facility] INTERFACES documented in this encounter Visit Diagnoses Not on filedocumented in this encounter Additional Source Comments The information contained in this document represents components of the legal health record. It is not the complete legal health record.[facility]
--- OUTSIDE RECORDS SUMMARY | 2016-09-22 | XMS_ITS | Encounter Summary ---
Author Organization [facility] Address [address] [place] [address] Phone Care Team Providers Care Security Professionals Name Role Phone Unavailable Primary Care Provider Unavailabl e Encounter Details Date Type Department Care Team (Late st Contact Info) Description 09/22/2016 Hospital Encounter [facility] [address] [place] [address] Shayne Rodriguez MD [address] [address] [email or web address] Social History Tobacco Use Types Packs/Day Years [...] Comments CT ABDOMEN OUTSIDE (NO INTERPRETATION) Routine 09/22/2016 12:00 AM EST documented in this encounter Results * CT Abdomen Outside (No Interpretation) (09/22/2016 12:00 AM EST) Narrative [facility] [place] - 11/17/2017 1:20 PM EST This study is for PACS storage only and not for interpretation. us Shayne Monique MD IMG OUT SIDE IMAGING W/OUT INTERPRETATION Final Result [facility] [place] documented in this encounter Visit Diagnoses Not on filedocumented in this encounter Additional Source Comments The information contained in this document represents components of the legal health record. It is not the complete legal health record.[facility]
--- OUTSIDE RECORDS SUMMARY | 2025-08-21 09:27 | XMS_ITS | Clinical Summary ---
Author Organization [facility] [address] [facility] Address [address] [place] [address] Phone Care Team Providers Care Tunnel Mucker Name Role Phone Keshawn Tillman MD Primary Care Provider [phone] Allergies Active Allergy Reactions Criticality Noted Date Comments Barley Anaphylaxis High 12/10/2017 Fentanyl 11/24/2024 Lisinopril 11/29/2024 Gabapentin 11/24/2024 Medications tadalafiL (CIALIS) 10 mg tablet Take 1 tablet (10 mg total) by mouth 1 (one) time each day. 024 Active pravastatin (PRAVACHOL) 10 mg tablet Take 1 tablet (10 mg total) by mouth every other day. 024 Active OxyCONTIN 20 mg 12 hr abuse-deterrent tablet Take 1 tablet (20 mg total) by mouth 2 (two) times a day. Active oxyCODONE (ROXICODONE) 20 mg immediate release tablet TAKE 1/2 TO 1 TABLET EVERY 4 TO 6 HOURS NEEDED FOR SEVERE PAIN 025 Active multivitamin (multivitamin-ir on-minerals) tablet Take 1 tablet by mouth daily. Active insulin lispro (HumaLOG KwikPen) 100 unit/mL injection pen USE 6 - 12 UNITS DAILY SUBCUTANEOUSLY WITH MEALS DIRECTED MAILY DAILY DOSE 36 UNITS Active Lantus Solostar U-100 Insulin 100 unit/mL (3 mL) injection pen INJECT UP TO 34 UNITS UNDER THE SKIN EVERY DAY 024 Active Gvoke HypoPen 2-Pack 0.5 mg/0.1 mL auto-injector 024 Active gemfibroziL (LOPID) 600 mg tablet Take 1 tablet (600 mg total) by mouth 2 (two) times a day. Active amphetamine-dext roamphetamine XR (ADDERALL XR) 20 mg 24 hr capsule Take 1 capsule (20 mg total) by mouth 1 (one) time each day in the morning. Max Daily Amount: 20 mg 025 Active carisoprodoL (SOMA) 350 mg tablet Take 1 tablet (350 mg total) by mouth 2 times daily as needed. Active Dexcom G6 Transmitter device See administration instructions. 024 Active omeprazole (PriLOSEC) [address] capsuleIndicatio ns:Gastroesophag eal reflux disease without esophagitis Take 1 capsule (20 mg total) by mouth 1 (one) time each day. Do not crush or chew. 90 each 3 025 2025 Active Creon 24,000-76,000 -120,000 unit capsuleIndicatio ns:Pancreatic insufficiency TAKE 1 CAPSULE BY MOUTH FOUR TIMES A DAY 300 capsule 3 025 Active pancrelipase, Dry-Curk-Tojv, (Creon) 24,000-76,000 -120,000 unit capsuleIndicatio ns:Pancreatic insufficiency Take 1 capsule (24,000 Units total) by mouth 4 (four) times a day. 360 each 3 025 2024 Discontinued Surgical History Surgery Date Site/Laterality Comments ESOPHAGOGASTRODUODENOSCOPY 10/12/2007 - 10/11/2008 Dr. Hensley- esophagitis and stricture UMBILICAL HERNIA REPAIR ESOPHAGOGASTRODUODENOSCOPY 12/04/2009 Esophageal ring, mild reflux on bx, nl gastric and duodenal bx CHOLECYSTECTOMY 10/12/2017 - 10/11/2018 Dr[facility] 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 (CMS/HCC V24, CMS/HCC V28) Family History Medical History Relation Name [...] series) 02/22/2000 HPV Vaccines (1 - 3-dose SCDM series) 02/22/2008 HIV Screening 09/14/2022 Hepatitis C Screening 09/14/2022 Medicare Annual Wellness Visit 09/14/2022 Social Influencers of Health Screening 09/14/2022 Cholesterol Screening (Lipid Panel) 11/17/2022 11/17/2017 Depression Screening 10/12/2024 COVID-19 Vaccine ( season) 2025 09/28/2021, 01/30/2021, 01/01/2021 Influenza Vaccine (#1) 2025 , 08/16/2021, 06/14/2019, Additional history exists DTaP,Tdap,and Td Vaccines (2 - Td or Tdap) 05/14/2033 05/14/2023 RSV Immunization Adult Patients (1 - 1-dose 75+ series) 02/22/2056 HIB Vaccines Aged Out No longer eligi [...] MEDICARE ADVANTAGE MEDICAID - [place] Care Teams Tunnel Mucker Relationship Specialty Start Date End Date Keshawn Tillman MD [address] [place] [address] PCP - General Internal Medicine 09/21/24
--- OUTSIDE RECORDS SUMMARY | 2025-08-21 09:27 | XMS_ITS | Encounter Summary ---
Author Organization [facility] Address [address] [place] [address] Phone Care Team Providers Care Print Room Worker Name Role Phone Keshawn Tillman MD Primary Care Provider [phone] Kurtis Courtney MD Primary Care Provider [phone] Encounter Details Date Type Department Care Team (Late st Contact Info) Description 11/17/2017 Procedure Pass [facility] General Imaging [address] [place] [address] Social History Tobacco Use Types Packs/Day Years [...] on filedocumented in this encounter Care Teams Print Room Worker Relationship Specialty Start Date End Date Keshawn Tillman MD [address] [facility] [place] [address] PCP - General Internal Medicine 10/28/17 12/30/17 Kurtis Courtney MD [address] [place] [phone] PCP - General 12/31/17 documented as of this encounter Additional Source Comments The information contained in this document represents components of the legal health record. It is not the complete legal health record.[facility]
--- OUTSIDE RECORDS SUMMARY | 2025-08-21 09:27 | XMS_ITS | Encounter Summary ---
Author Organization [facility] Address [address] [place] [address] Phone Care Team Providers Care Solutions Development Analyst Name Role Phone Keshawn Tillman MD Primary Care Provider [phone] Kurtis Courtney MD Primary Care Provider [phone] Encounter Details Date Type Department Care Team (Late st Contact Info) Description 12/17/2017 Procedure Pass [facility] [place] PERIOPERATIVE DEPT [address] [place] [address] Social History Tobacco Use Types Packs/Day Years [...] on filedocumented in this encounter Care Teams Solutions Development Analyst Relationship Specialty Start Date End Date Keshawn Tillman MD [address] [facility] [address] [place] [address] PCP - General Internal Medicine 10/28/17 12/30/17 Kurtis Courtney MD [address] [place] [phone] PCP - General 12/31/17 documented as of this encounter Additional Source Comments The information contained in this document represents components of the legal health record. It is not the complete legal health record.[facility]
--- OUTSIDE RECORDS SUMMARY | 2025-08-21 09:27 | XMS_ITS | Encounter Summary ---
Author Organization [facility] Address [address] [place] [address] Phone Care Team Providers Care Director Adult Name Role Phone Keshawn Tillman MD Primary Care Provider [phone] Kurtis Courtney MD Primary Care Provider [phone] Encounter Details Date Type Department Care Team (Late st Contact Info) Description 11/17/2017 Procedure Pass [facility] Imaging [address] [place] [address] Social History Tobacco Use Types Packs/Day Years [...] filedocumented in this encounter Care Teams Director Adult Relationship Specialty Start Date End Date Keshawn Tillman MD [facility] [place] [address] PCP - General Internal Medicine 10/28/17 12/30/17 Kurtis Courtney MD [address] [place] [phone] PCP - General 12/31/17 documented as of this encounter Additional Source Comments The information contained in this document represents components of the legal health record. It is not the complete legal health record.[facility]
--- OUTSIDE RECORDS SUMMARY | 2025-08-21 09:27 | XMS_ITS | Encounter Summary ---
Author Organization [facility] Address [address] [place] [address] [place] [address] Phone Care Team Providers Care Gas Leak Tester Name Role Phone Keshawn Tillman MD Primary Care Provider [phone] Kurtis Courtney MD Primary Care Provider [phone] Encounter Details Date Type Department Care Team (Late st Contact Info) Description 11/25/2017 Prep for Surgery [facility] General & Gastrointestinal Surgery [address] [place] [address], [address] Floor, [address] [place] [address] Shayne Rodriguez MD [address] [facility] [address] [place] [address] [email or web address] Social History Tobacco Use Types Packs/Day Years [...] on filedocumented in this encounter Care Teams Gas Leak Tester Relationship Specialty Start Date End Date Keshawn Tillman MD [address] [facility] [address] [place] [address] PCP - General Internal Medicine 10/28/17 12/30/17 Kurtis Courtney MD [address] [place] [address] [address] [place] [phone] PCP - General 12/31/17 documented as of this encounter Additional Source Comments The information contained in this document represents components of the legal health record. It is not the complete legal health record.[facility]
--- OUTSIDE RECORDS SUMMARY | 2025-08-21 09:27 | XMS_ITS | Encounter Summary ---
Author Organization [facility] Address [address] [place] [address] Phone Care Team Providers Care Chicken Hatchery Helper Name Role Phone Keshawn Tillman MD Primary Care Provider [phone] Kurtis Courtney MD Primary Care Provider [phone] Encounter Details Date Type Department Care Team (Late st Contact Info) Description 11/17/2017 Procedure Pass [facility] General Imaging [address] [place] [address] Social History Tobacco Use Types Packs/Day Years [...] on filedocumented in this encounter Care Teams Chicken Hatchery Helper Relationship Specialty Start Date End Date Keshawn Tillman MD [address] [facility] [address] PCP - General Internal Medicine 10/28/17 12/30/17 Kurtis Courtney MD [address] [place] [phone] PCP - General 12/31/17 documented as of this encounter Additional Source Comments The information contained in this document represents components of the legal health record. It is not the complete legal health record.[facility]
--- OUTSIDE RECORDS SUMMARY | 2025-08-21 09:27 | XMS_ITS | Encounter Summary ---
Author Organization [facility] Address [address] [place] [address] Phone Care Team Providers Care Chemistry Quality Control Technician Name Role Phone Keshawn Tillman MD Primary Care Provider Kurtis Courtney MD Primary Care Provider [phone] Encounter Details Date Type Department Care Team (Late st Contact Info) Description 11/17/2017 Procedure Pass [facility] Imaging [address] [place] [address] Social History Tobacco Use Types Packs/Day Years [...] on filedocumented in this encounter Care Teams Chemistry Quality Control Technician Relationship Specialty Start Date End Date Keshawn Tillman MD [facility] [place] [address] PCP - General Internal Medicine 10/28/17 12/30/17 Kurtis Courtney MD [address] [place] [phone] PCP - General 12/31/17 documented as of this encounter Additional Source Comments The information contained in this document represents components of the legal health record. It is not the complete legal health record.[facility]
--- OUTSIDE RECORDS SUMMARY | 2025-08-21 09:27 | XMS_ITS | Clinical Summary ---
Author Organization [facility] Address [address] [place] [address] Care Team Providers Care Narcotics Detective Name Role Phone Unavailable Primary Care Provider [...] series) 02/22/2000 COVID-19 Vaccine (2023-2 5 season) 2025 HPV Vaccines (No Doses Required) Completed Pneumococcal Vaccine: Pediat drake (0-5 Years) and At-Risk Patients (6 to 49 Years) Aged Out No longer eligible b ased on patient's age to complete this topic
[2025-08-27 11:28] LABS: Testosterone, Free 37.0 pg/mL (35.0-155.0)
[2025-09-02 17:09] LABS: Estradiol Free 0.31 pg/mL; Estradiol, Ultrasensitive 16 pg/mL (< OR = 29)
== END 2025-08-21 08:54 | disposition home or self-care (01) ==
LOC: HO.HMGCLDS 08:53
PROVIDERS: Absent Provider Internal Medicine Endocrinology, Diabetes & Metabolism; PCP Internal Medicine; Visit Provider Urology
DX: E11.69 Type 2 diabetes mellitus with other specified complication (principal); N52.1 Erectile dysfunction due to diseases classified elsewhere
CPT/HCPCS: 36415; 82670; 82681; 83002; 84402; 84403